=== PATIENT | female | born 1940 | race Caucasian/White ===

== ENCOUNTER → 2016-12-26 | Outpatient (CLI) | payer MEDICARE ==
[2016-12-26 09:26] LABS: ANION GAP 14 (5-19); BLOOD UREA NITROGEN 45 mg/dL (7-20); CALCIUM 9.1 mg/dL (8.4-10.2); CARBON DIOXIDE 23 mmol/L (22-30); CHLORIDE 100 mmol/L (98-107); CREATININE RESULT 2.21 mg/dL (0.52-1.25); GLUCOSE 215 mg/dL (75-110); POTASSIUM 4.6 mmol/L (3.6-5.0); SODIUM 136.6 mmol/L (137-145)
== END ==
LOC: OD 08:34
PROVIDERS: ATTEND Internal Medicine Nephrology
DX: N18.4 Chronic kidney disease, stage 4 (severe) (principal); E87.5 Hyperkalemia; E11.9 Type 2 diabetes mellitus without complications
CPT/HCPCS: 36415; 80048

== ENCOUNTER → 2017-04-10 | Outpatient (CLI) | payer MEDICARE ==
[2017-04-10 09:30] LABS: HEMATOCRIT 37.1 % (36.0-47.0); HEMOGLOBIN 12.3 g/dL (12.0-15.5); HGB HCT DIFFERENCE -0.2; MEAN CORPUSCULAR HEMOGLOBIN 27.7 pg (27.0-33.4); MEAN CORPUSCULAR HGB CONC 33.2 g/dL (32.0-36.0); MEAN CORPUSCULAR VOLUME 83 fl (80-97); RED BLOOD COUNT 4.46 10^6/uL (3.72-5.28); RED CELL DISTRIBUTION WIDTH 13.8 % (11.5-14.0)
[2017-04-10 09:43] LABS: APPEARANCE,URINE CLEAR; BILIRUBIN,URINE NEGATIVE (NEGATIVE); GLUCOSE, URINE NEGATIVE (NEGATIVE); KETONES,URINE NEGATIVE (NEGATIVE); LEUKOCYTE ESTERASE,URINE TRACE (NEGATIVE); NITRITE,URINE NEGATIVE (NEGATIVE); PROTEIN,URINE NEGATIVE (NEGATIVE); URINE SPECIFIC GRAVITY 1.009; UROBILINOGEN,URINE NEGATIVE mg/dL (<2.0)
[2017-04-10 10:04] LABS: ANION GAP 13 (5-19); BLOOD UREA NITROGEN 44 mg/dL (7-20); CALCIUM 9.3 mg/dL (8.4-10.2); CARBON DIOXIDE 19 mmol/L (22-30); CHLORIDE 109 mmol/L (98-107); CREATININE RESULT 1.99 mg/dL (0.52-1.25); GLUCOSE 190 mg/dL (75-110); POTASSIUM 4.5 mmol/L (3.6-5.0); SODIUM 140.9 mmol/L (137-145)
== END ==
LOC: OD 08:06
PROVIDERS: ATTEND Internal Medicine Nephrology
DX: I12.9 Hypertensive chronic kidney disease with stage 1 through stage 4 chronic kidney disease, or unspecified chronic kidney disease (principal); N18.4 Chronic kidney disease, stage 4 (severe); E11.9 Type 2 diabetes mellitus without complications
CPT/HCPCS: 36415; 80048; 81001; 85027

== ENCOUNTER → 2017-05-09 | Outpatient (CLI) | payer MEDICARE ==
--- NOTE | 2017-05-13 19:44 | XCELERA REPORT ---
[address] [address] Transthoracic Echocardiogram Report Name: MEGAN CARVALHO Age: 76 yrs Gender: Female : 1940 Patient Status: Outpatient Patient Location: Study Date: 05/09/2017 02:07 PM Height: 63 in Weight: 253 lb BSA: 2.1 m2 Procedure: A complete two-dimensional transthoracic echocardiogram was performed (2D, M-mode, spectral and color flow Doppler). The study was technically difficult with many images being suboptimal in quality. Reason For Study: HEART FAILURE EDEMA Ordering Physician: OSCAR RONDON Performed By: Megha Lopez Interpretation Summary The study was technically difficult with many images being suboptimal in quality. The left ventricular ejection fraction is normal. There is borderline concentric left ventricular hypertrophy. LV diastolic function could not be adequately assessed. The left ventricle is grossly normal size. Wall motion cannot be accurately commented on, Not all wall segments were well visualized. Regional wall motion abnormalities cannot be excluded due to limited visualization. The right ventricular systolic function is normal. The right atrium is normal. Borderline left atrial enlargement. There is no mitral valve stenosis. There is a trace amount of mitral regurgitation No aortic regurgitation is present. There is no aortic valve stenosis There is a trace or physiologic amount of tricuspid regurgitation Right ventricular systolic pressure is at the upper limits of normal The aortic root is not well visualized. The inferior vena cava was not well visualized There is no pericardial effusion. The study was technically difficult with many images being suboptimal in quality. MMode/2D Measurements \T\ Calculations RVDd: 3.4 cm LVIDd: 4.7 cmFS: 25.5 % Ao root diam: 3.0 cm IVSd: 1.6 cm LVIDs: 3.5 cmEDV(Teich): 101.3 ml LVPWd: 1.2 cmESV(Teich): 50.3 ml Ao root area: 6.9 cm2 EF(Teich): 50.3 % LA dimension: 3.4 cm LVOT diam: 2.0 cm LVOT area: 3.2 cm2 Doppler Measurements \T\ Calculations MV E max nay: MV P1/2t max nay: Ao V2 max: LV V1 max P.4 cm/sec 83.4 cm/sec 108.6 cm/sec 5.4 mmHg MV A max nay: MV P1/2t: 41.2 msec Ao max PG: LV V1 max: 95.8 cm/sec MVA(P1/2t): 5.3 cm2 4.7 mmHg 116.5 cm/sec MV E/A: 0.86 MV dec slope: JOSE(V,D): 3.4 cm2 593.1 cm/sec2 PA V2 max: 83.6 cm/sec PA max P.8 mmHg Left Ventricle The left ventricle is grossly normal size. There is borderline concentric left ventricular hypertrophy. The left ventricular ejection fraction is normal. LV diastolic function could not be adequately assessed. Wall motion cannot be accurately commented on, but no definite regional wall motion abnormalities noted. Not all wall segments were well visualized. Regional wall motion abnormalities cannot be excluded due to limited visualization. Right Ventricle The right ventricle is grossly normal size. The right ventricular systolic function is normal. Atria The right atrium is normal. Borderline left atrial enlargement. Interarterial septum not well visualized and not well dopplered. Cannot comment on ASD/PFO presence. Mitral Valve The mitral valve is grossly normal. There is no mitral valve stenosis. There is a trace amount of mitral regurgitation. Aortic Valve The aortic valve is grossly normal. There is no aortic valve stenosis. No aortic regurgitation is present. Tricuspid Valve The tricuspid valve is not well visualized secondary to technical limitations. There is no tricuspid stenosis. There is a trace or physiologic amount of tricuspid regurgitation. Right ventricular systolic pressure is at the upper limits of normal. Pulmonic Valve The pulmonic valve is not well visualized. Great Vessels The aortic root is not well visualized. The inferior vena cava was not well visualized. Effusions There is no pericardial effusion. : OSCAR RONDON > Shon Carrasco
== END ==
LOC: SP 13:31
PROVIDERS: ATTEND Internal Medicine
DX: I10 Essential (primary) hypertension (principal); I50.9 Heart failure, unspecified; R60.9 Edema, unspecified
CPT/HCPCS: 93306

== ENCOUNTER → 2017-08-16 | Outpatient (CLI) | payer MEDICARE ==
[2017-08-16 11:41] LABS: HEMOGLOBIN 13.2 g/dL (12.0-15.5); HGB HCT DIFFERENCE 0.6; MEAN CORPUSCULAR HEMOGLOBIN 27.7 pg (27.0-33.4); MEAN CORPUSCULAR HGB CONC 33.7 g/dL (32.0-36.0); MEAN CORPUSCULAR VOLUME 82 fl (80-97); RED BLOOD COUNT 4.74 10^6/uL (3.72-5.28); RED CELL DISTRIBUTION WIDTH 13.7 % (11.5-14.0); WHITE BLOOD COUNT 7.9 10^3/uL (4.0-10.5)
[2017-08-16 11:47] LABS: APPEARANCE,URINE SLIGHTLY-CLOUDY; BILIRUBIN,URINE NEGATIVE (NEGATIVE); GLUCOSE, URINE NEGATIVE (NEGATIVE); KETONES,URINE NEGATIVE (NEGATIVE); LEUKOCYTE ESTERASE,URINE MODERATE (NEGATIVE); NITRITE,URINE NEGATIVE (NEGATIVE); PROTEIN,URINE NEGATIVE (NEGATIVE); URINE SPECIFIC GRAVITY 1.008; UROBILINOGEN,URINE NEGATIVE mg/dL (<2.0)
[2017-08-16 12:11] LABS: ANION GAP 13 (5-19); BLOOD UREA NITROGEN 35 mg/dL (7-20); CALCIUM 9.3 mg/dL (8.4-10.2); CARBON DIOXIDE 26 mmol/L (22-30); CHLORIDE 101 mmol/L (98-107); CREATININE RESULT 1.81 mg/dL (0.52-1.25); GLUCOSE 166 mg/dL (75-110); PHOSPHORUS 4.3 mg/dL (2.5-4.5)
== END ==
LOC: OD 09:53
PROVIDERS: ATTEND Physician Assistant Medical
DX: I12.9 Hypertensive chronic kidney disease with stage 1 through stage 4 chronic kidney disease, or unspecified chronic kidney disease (principal); N18.4 Chronic kidney disease, stage 4 (severe); R60.9 Edema, unspecified
CPT/HCPCS: 36415; 80048; 81001; 83970; 84100; 85027

== ENCOUNTER → 2018-12-25 | Outpatient (CLI) | payer MEDICARE ==
[2018-12-25 09:24] LABS: APPEARANCE,URINE SLIGHTLY-CLOUDY; BILIRUBIN,URINE NEGATIVE (NEGATIVE); COLOR,URINE YELLOW; GLUCOSE, URINE NEGATIVE (NEGATIVE); KETONES,URINE NEGATIVE (NEGATIVE); LEUKOCYTE ESTERASE,URINE SMALL (NEGATIVE); NITRITE,URINE NEGATIVE (NEGATIVE); PROTEIN,URINE NEGATIVE (NEGATIVE); URINE SPECIFIC GRAVITY 1.009; UROBILINOGEN,URINE NEGATIVE mg/dL (<2.0)
[2018-12-25 09:29] LABS: HEMATOCRIT 34.5 % (36.0-47.0); HEMOGLOBIN 11.3 g/dL (12.0-15.5); MEAN CORPUSCULAR HEMOGLOBIN 27.9 pg (27.0-33.4); MEAN CORPUSCULAR HGB CONC 32.8 g/dL (32.0-36.0); MEAN CORPUSCULAR VOLUME 85 fl (80-97); PLATELET COUNT 322 10^3/uL (150-450); RED BLOOD COUNT 4.07 10^6/uL (3.72-5.28); RED CELL DISTRIBUTION WIDTH 14.7 % (11.5-14.0); WHITE BLOOD COUNT 6.8 10^3/uL (4.0-10.5)
[2018-12-25 09:48] LABS: ANION GAP 9 (5-19); BLOOD UREA NITROGEN 53 mg/dL (7-20); CALCIUM 9.1 mg/dL (8.4-10.2); CARBON DIOXIDE 20 mmol/L (22-30); CHLORIDE 107 mmol/L (98-107); GLUCOSE 184 mg/dL (75-110); SODIUM 136.2 mmol/L (137-145)
[2018-12-25 09:56] LABS: POTASSIUM 6.1 mmol/L (3.6-5.0)
== END ==
LOC: OD 08:25
PROVIDERS: ATTEND Internal Medicine Nephrology
DX: I12.9 Hypertensive chronic kidney disease with stage 1 through stage 4 chronic kidney disease, or unspecified chronic kidney disease (principal); N18.4 Chronic kidney disease, stage 4 (severe); E87.5 Hyperkalemia
CPT/HCPCS: 36415; 80048; 81001; 85027

== ENCOUNTER → 2019-01-01 | Outpatient (CLI) | payer MEDICARE | LOC: OD 15:09 | PROVIDERS: ATTEND Internal Medicine Nephrology | DX: E87.5 Hyperkalemia (principal) | CPT/HCPCS: 36415; 84132 ==

== ENCOUNTER → 2019-01-19 | Outpatient (CLI) | payer MEDICARE ==
[2019-01-19 10:52] LABS: HEMATOCRIT 36.1 % (36.0-47.0); HEMOGLOBIN 12.3 g/dL (12.0-15.5); MEAN CORPUSCULAR HEMOGLOBIN 28.8 pg (27.0-33.4); MEAN CORPUSCULAR HGB CONC 34.1 g/dL (32.0-36.0); MEAN CORPUSCULAR VOLUME 85 fl (80-97); PLATELET COUNT 411 10^3/uL (150-450); RED BLOOD COUNT 4.27 10^6/uL (3.72-5.28); RED CELL DISTRIBUTION WIDTH 13.7 % (11.5-14.0); WHITE BLOOD COUNT 7.3 10^3/uL (4.0-10.5)
[2019-01-19 11:10] LABS: ANION GAP 12 (5-19); BLOOD UREA NITROGEN 58 mg/dL (7-20); CALCIUM 9.1 mg/dL (8.4-10.2); CARBON DIOXIDE 26 mmol/L (22-30); CHLORIDE 99 mmol/L (98-107); GLUCOSE 107 mg/dL (75-110); PHOSPHORUS 4.7 mg/dL (2.5-4.5); POTASSIUM 5.1 mmol/L (3.6-5.0); SODIUM 137.2 mmol/L (137-145)
== END ==
LOC: OD 10:07
PROVIDERS: ATTEND Internal Medicine Nephrology
DX: I12.9 Hypertensive chronic kidney disease with stage 1 through stage 4 chronic kidney disease, or unspecified chronic kidney disease (principal); N18.4 Chronic kidney disease, stage 4 (severe); E11.22 Type 2 diabetes mellitus with diabetic chronic kidney disease; R60.9 Edema, unspecified
CPT/HCPCS: 36415; 80048; 83970; 84100; 85027

== ENCOUNTER → 2019-03-12 | Outpatient (CLI) | payer MEDICARE ==
[2019-03-12 09:36] LABS: ABSOLUTE BASOPHILS # (AUTO) 0.1 10^3/uL (0.0-0.2); ABSOLUTE EOSINOPHILS # (AUTO) 0.6 10^3/uL (0.0-0.6); ABSOLUTE LYMPHOCYTES (AUTO) 1.9 10^3/uL (0.5-4.7); ABSOLUTE MONOCYTES (AUTO) 0.6 10^3/uL (0.1-1.4); ABSOLUTE NEUT (AUTO) 3.9 10^3/uL (1.7-8.2); BASOPHILS % (AUTO) 1.1 % (0-2); EOSINOPHILS % (AUTO) 8.6 % (0-6); HEMATOCRIT 31.6 % (36.0-47.0); HEMOGLOBIN 10.8 g/dL (12.0-15.5); LYMPHOCYTES % (AUTO) 26.3 % (13-45); MEAN CORPUSCULAR HEMOGLOBIN 28.8 pg (27.0-33.4); MEAN CORPUSCULAR HGB CONC 34.3 g/dL (32.0-36.0); MEAN CORPUSCULAR VOLUME 84 fl (80-97); MONOCYTES % (AUTO) 8.4 % (3-13); PLATELET COUNT 355 10^3/uL (150-450); RED BLOOD COUNT 3.76 10^6/uL (3.72-5.28); RED CELL DISTRIBUTION WIDTH 13.6 % (11.5-14.0); SEGMENTED NEUTROPHILS % (AUTO) 55.6 % (42-78); TOTAL CELLS COUNTED % (AUTO) 100 %; WHITE BLOOD COUNT 7.1 10^3/uL (4.0-10.5)
[2019-03-12 09:57] LABS: ALANINE AMINOTRANSFERASE 28 U/L (9-52); ALBUMIN 3.9 g/dL (3.5-5.0); ALKALINE PHOSPHATASE 176 U/L (38-126); ANION GAP 10 (5-19); ASPARTATE AMINO TRANSFERASE 20 U/L (14-36); BILIRUBIN,DIRECT 0.3 mg/dL (0.0-0.4); BILIRUBIN,TOTAL 0.5 mg/dL (0.2-1.3); BLOOD UREA NITROGEN 50 mg/dL (7-20); CALCIUM 9.2 mg/dL (8.4-10.2); CARBON DIOXIDE 25 mmol/L (22-30); CHLORIDE 106 mmol/L (98-107); CHOLESTEROL 156.88 mg/dL (0-200); GLUCOSE 123 mg/dL (75-110); POTASSIUM 4.6 mmol/L (3.6-5.0); SODIUM 141.4 mmol/L (137-145); TOTAL PROTEIN 7.6 g/dL (6.3-8.2); TRIGLYCERIDES 155 mg/dL (<150)
[2019-03-12 10:08] LABS: DIRECT LDL 77 mg/dL (<100)
== END ==
LOC: OD 08:42
PROVIDERS: ATTEND Internal Medicine
DX: E11.649 Type 2 diabetes mellitus with hypoglycemia without coma (principal); E78.2 Mixed hyperlipidemia; R53.83 Other fatigue
CPT/HCPCS: 36415; 80053; 80061; 84443; 85025

== ENCOUNTER → 2019-03-23 | Outpatient (CLI) | payer MEDICARE ==
[2019-03-23 09:52] LABS: HEMATOCRIT 33.6 % (36.0-47.0); HEMOGLOBIN 11.3 g/dL (12.0-15.5); MEAN CORPUSCULAR HEMOGLOBIN 28.1 pg (27.0-33.4); MEAN CORPUSCULAR HGB CONC 33.5 g/dL (32.0-36.0); MEAN CORPUSCULAR VOLUME 84 fl (80-97); PLATELET COUNT 395 10^3/uL (150-450); RED BLOOD COUNT 4.01 10^6/uL (3.72-5.28); RED CELL DISTRIBUTION WIDTH 13.8 % (11.5-14.0)
[2019-03-23 10:10] LABS: ANION GAP 9 (5-19); BLOOD UREA NITROGEN 49 mg/dL (7-20); CALCIUM 9.2 mg/dL (8.4-10.2); CARBON DIOXIDE 25 mmol/L (22-30); CHLORIDE 108 mmol/L (98-107); GLUCOSE 208 mg/dL (75-110); PHOSPHORUS 5.1 mg/dL (2.5-4.5); POTASSIUM 4.6 mmol/L (3.6-5.0); SODIUM 141.5 mmol/L (137-145)
[2019-03-23 10:30] LABS: APPEARANCE,URINE SLIGHTLY-CLOUDY; BILIRUBIN,URINE NEGATIVE (NEGATIVE); COLOR,URINE YELLOW; GLUCOSE, URINE NEGATIVE (NEGATIVE); KETONES,URINE NEGATIVE (NEGATIVE); LEUKOCYTE ESTERASE,URINE SMALL (NEGATIVE); NITRITE,URINE NEGATIVE (NEGATIVE); PROTEIN,URINE 100 mg/dL (NEGATIVE); URINE SPECIFIC GRAVITY 1.012; UROBILINOGEN,URINE NEGATIVE mg/dL (<2.0)
== END ==
LOC: OD 09:21
PROVIDERS: ATTEND Physician Assistant Medical
DX: E11.22 Type 2 diabetes mellitus with diabetic chronic kidney disease (principal); I12.9 Hypertensive chronic kidney disease with stage 1 through stage 4 chronic kidney disease, or unspecified chronic kidney disease; N18.4 Chronic kidney disease, stage 4 (severe); R60.9 Edema, unspecified; N25.0 Renal osteodystrophy; E87.5 Hyperkalemia
CPT/HCPCS: 36415; 80048; 81001; 83970; 84100; 85027

== ENCOUNTER 2019-05-25 12:01 | Inpatient (IN) | payer MEDICARE ==
[2019-05-25] MEDS ORDERED: METHOCARBAMOL INJ/PF 1000 MG/10 ML SDV IV ONE (13:05)
[2019-05-25] MEDS ORDERED: INSULIN REG, HUMAN 100 UNIT/ML 3 ML VIAL (PYX) IV ONE (13:05)
--- NOTE | 2019-05-25 13:21 | ER Document Report ---
Entered by GABRIELLA HECK SCRIBE 05/25/19 1230 Acting as scribe for:ANDREW TERRY MD ED General - General Stated Complaint: DIFFICULTY BREATHING Time Seen by Provider: 05/25/19 12:08 Primary Care Provider: PIYUSH RONDON PA-C [ALLIED HEALTH PROFESSIONAL] - Follow up as needed Information source: Patient Notes: Patient is a 78 year old female that presents to the emergency department today with complaints of pain that radiates between the left side of the neck and the left shoulder. EMS states the patient reported her pain as an 8/10 on arrival, and after 2 sublingual NTG the patient's pain dropped to a 4/10. Patient mentions that she believes she is dehydrated as she has been vomiting with associated diarrhea for the last x3 days. TRAVEL OUTSIDE OF THE [place] IN LAST 30 DAYS: No - Related Data Allergies/Adverse Reactions: acetaminophen [From Tylenol] Allergy (Verified 10/21/14 08:01) ciprofloxacin [From Cipro] Allergy (Verified 10/21/14 08:01) ciprofloxacin HCl [From Cipro] Allergy (Verified 10/21/14 08:01) Penicillins Allergy (Verified 10/21/14 08:01) Sulfa (Sulfonamide Antibiotics) Allergy (Verified 10/21/14 08:01) Past Medical History - General Information source: Patient - Social History Smoking Status: Former Smoker - Quit 40 years ago Cigarette use (# per day): No Frequency of alcohol use: None Drug Abuse: None Family History: CAD, DM - Past Medical History Cardiac Medical History: Reports: Hx Hypertension Endocrine Medical History: Reports: Hx Diabetes Mellitus Type 1 Past Surgical History: Reports: Hx Appendectomy, Hx Cholecystectomy, Hx Hysterectomy - Immunizations Hx Diphtheria, Pertussis, Tetanus Vaccination: Yes Review of Systems - Review of Systems Constitutional: No symptoms reported EENT: No symptoms reported Cardiovascular: No symptoms reported Respiratory: No symptoms reported Gastrointestinal: See HPI, Diarrhea, Nausea, Vomiting Genitourinary: No symptoms reported Female Genitourinary: No symptoms reported Musculoskeletal: See HPI, Back pain, Neck pain Skin: No symptoms reported Hematologic/Lymphatic: No symptoms reported Neurological/Psychological: No symptoms reported -: Yes All other systems reviewed and negative Physical Exam - Vital signs Vitals: Resp Pulse Ox 22 H 92 05/25/19 12:13 05/25/19 12:13 - Notes Notes: Physical Exam: General: Alert, dry mouth. HEENT: Normocephalic. Atraumatic. PERRL. Extraocular movements intact. Oropharynx clear. Neck: Supple. Left posterior cervical musculture tenderness to palpation. Left lateral tenderness to palpation. Respiratory: No respiratory distress. Clear and equal breath sounds bilaterally. Cardiovascular: Regular rate and rhythm. Chest: Left anterior chest tenderness to palpation. Abdominal: Normal Inspection. Non-tender. No distension. Normal Bowel Sounds. Back: Non-tender. No deformity or step off. Extremities: Moves all four extremities. Upper extremities: Normal inspection. Normal ROM. Lower extremities: Normal inspection. No edema. Normal ROM. Neurological: Normal cognition. AAOx4. Normal speech. Psychological: Normal affect. Normal Mood. Skin: Warm. Dry. Normal color. Course - Vital Signs Vital signs: Temp Pulse Resp BP Pulse Ox 97.4 F 87 27 H 140/59 H 92 05/25/19 12:21 05/25/19 12:21 05/25/19 13:01 05/25/19 13:01 05/25/19 13:01 - Laboratory Result Diagrams: 05/25/19 11:50 05/25/19 11:50 Laboratory results interpreted by me: 05/25/19 05/25/19 05/25/19 11:50 11:50 12:17 WBC 16.6 H Hgb 10.9 L Hct 33.3 L MCH 26.7 L RDW 14.1 H Plt Count 526 H Absolute Neutrophils 12.8 H Sodium 127.1 L Chloride 87 L BUN 54 H Creatinine 5.15 H Est GFR ( Amer) 10 L Est GFR (Non-Af Amer) 8 L Glucose 402 H* POC Glucose 416 H* Direct Bilirubin 0.5 H Alkaline Phosphatase 284 H - Diagnostic Test Radiology reviewed: Image reviewed, Reports reviewed - CXR--Right basilar airspace disease - EKG Interpretation by Me EKG shows normal: Sinus rhythm, [place], Intervals, QRS Complexes, ST-T Waves Rate: Normal - 87 Rhythm: NSR [place]/QRS: RBBB When compared to previous EKG there are: Previous EKG unavailable - Consults Dr. De La Cruz Time consulted: 13:52 Consulted provider: will come to ER Critical Care Note - Critical Care Note Total time excluding time spent on procedures (mins): 35 Discharge - Discharge Clinical Impression: Anterior chest wall pain, Right lower lobe pulmonary infiltrate, Hyperglycemia due to type 1 diabetes mellitus, Hypoxemia Strain of left trapezius muscle Qualifiers: Encounter type: initial encounter Qualified Code(s): S46.812A - Strain of other muscles, fascia and tendons at shoulder and upper arm level, left arm, initial encounter Leukocytosis Qualifiers: Leukocytosis type: unspecified Qualified Code(s): D72.829 - Elevated white blood cell count, unspecified Acute renal failure Qualifiers: Acute renal failure type: unspecified Qualified Code(s): N17.9 - Acute kidney failure, unspecified Condition: Stable Disposition: ADMITTED INPATIENT Admitting Provider: Jacob (Hospitalist) Unit Admitted: IMCU Referrals: PIYUSH RONDON PA-C [ALLIED HEALTH PROFESSIONAL] - Follow up as needed Scribe Attestation: 05/25/19 13:52 I personally performed the services described in the documentation, reviewed and edited the documentation which was dictated to the scribe in my presence, and it accurately records my words and actions. I personally performed the services described in the documentation, reviewed and edited the documentation which was dictated to the scribe in my presence, and it accurately records my words and actions.
[2019-05-25 13:30] LABS: ABSOLUTE BASOPHILS # (AUTO) 0.1 10^3/uL (0.0-0.2); ABSOLUTE LYMPHOCYTES (AUTO) 2.5 10^3/uL (0.5-4.7); ABSOLUTE MONOCYTES (AUTO) 1.2 10^3/uL (0.1-1.4); ABSOLUTE NEUT (AUTO) 12.8 10^3/uL (1.7-8.2); BASOPHILS % (AUTO) 0.3 % (0-2); EOSINOPHILS % (AUTO) 0.2 % (0-6); HEMATOCRIT 33.3 % (36.0-47.0); HEMOGLOBIN 10.9 g/dL (12.0-15.5); LYMPHOCYTES % (AUTO) 15.1 % (13-45); MEAN CORPUSCULAR HEMOGLOBIN 26.7 pg (27.0-33.4); MEAN CORPUSCULAR HGB CONC 32.7 g/dL (32.0-36.0); MEAN CORPUSCULAR VOLUME 82 fl (80-97); MONOCYTES % (AUTO) 7.4 % (3-13); PLATELET COUNT 526 10^3/uL (150-450); RED BLOOD COUNT 4.09 10^6/uL (3.72-5.28); RED CELL DISTRIBUTION WIDTH 14.1 % (11.5-14.0); TOTAL CELLS COUNTED % (AUTO) 100 %; WHITE BLOOD COUNT 16.6 10^3/uL (4.0-10.5)
--- NOTE | 2019-05-25 13:33 | RADIOLOGY REPORT (SQ) ---
EXAM DESCRIPTION: CHEST SINGLE VIEW COMPLETED DATE/TIME: 05/25/2019 1:22 pm REASON FOR STUDY: Left neck and chest pain COMPARISON: None. EXAM PARAMETERS: NUMBER OF VIEWS: One view. TECHNIQUE: Single frontal radiographic view of the chest acquired. RADIATION DOSE: NA LIMITATIONS: None. FINDINGS: LUNGS AND PLEURA: No pneumothorax. Right basilar airspace disease-moderate pleural effusi on. Left lung appears clear. MEDIASTINUM AND HILAR STRUCTURES: No masses. Contour normal. HEART AND VASCULAR STRUCTURES: Heart normal in size. Normal vasculature. BONES: No acute findings. HARDWARE: None in the chest. OTHER: No other significant finding. IMPRESSION: Right basilar airspace disease-moderate pleural effusion. TECHNICAL DOCUMENTATION: JOB ID: [id number] [place]-72 2010 [employer]- All Rights Reserved Reading location - IP/workstation name: [email or web address]
[2019-05-25 13:36] LABS: ALANINE AMINOTRANSFERASE 22 U/L (9-52); ALKALINE PHOSPHATASE 284 U/L (38-126); ANION GAP 18 (5-19); ASPARTATE AMINO TRANSFERASE 23 U/L (14-36); BILIRUBIN,DIRECT 0.5 mg/dL (0.0-0.4); BILIRUBIN,TOTAL 0.8 mg/dL (0.2-1.3); BLOOD UREA NITROGEN 54 mg/dL (7-20); CALCIUM 8.7 mg/dL (8.4-10.2); CARBON DIOXIDE 22 mmol/L (22-30); CHLORIDE 87 mmol/L (98-107); CREATINE KINASE 63 U/L (30-135); POTASSIUM 4.1 mmol/L (3.6-5.0); SODIUM 127.1 mmol/L (137-145); TOTAL PROTEIN 7.7 g/dL (6.3-8.2)
[2019-05-25 13:47] LABS: CREATINE KINASE MB 1.74 ng/mL (<4.55); TROPONIN I 0.023 ng/mL
[2019-05-25 13:48] LABS: GLUCOSE 402 mg/dL (75-110)
[2019-05-25] MEDS ORDERED: ONDANSETRON HCL INJ/PF 4 MG/2 ML SDV IV ONE (13:48)
[2019-05-25] MEDS ORDERED: AZITHROMYCIN INJ 500 MG VIAL IV ONE (13:49)
[2019-05-25] MEDS ORDERED: LEVOFLOXACIN 500 MG/D5W RTU 500 MG/100 ML RTUPB IV ONE (14:24)
--- NOTE | 2019-05-25 14:45 | PDOC H&P ---
History of Present Illness Admission Date/PCP: BRISA RENE MD History of Present Illness: MEGAN CARVALHO is a 78 year old female patient with past medical history of morbid obesity, hypertension, type 2 diabetes mellitus, hyperlipidemia, presents with chief complaint of shortness of breath, right- sided neck jaw and chest pain. Patient reported that she has been in her usual baseline state of health until this morning 7 AM when she started to have the above-mentioned complaints. The chest neck and jaw pain is reproducible. Of note about 6 days ago patient started to have abdominal pain and diarrhea for which she visited urgent care and she was given clarithromycin and Flagyl. And has associated nausea and vomiting. Denies any fever, chills, cough, palpitation or diaphoresis. Have any headache lightheadedness or blurring of vision. Her blood work shows leukocytosis of 16,000, hyponatremia with sodium of 127, hyperglycemia with blood glucose of 416, BUN 54 and creatinine 5.15. Her chest x-ray reported as right basilar airspace disease with moderate pleural effusion. Past Medical History Cardiac Medical History: Reports: Hypertension Endocrine Medical History: Reports: Diabetes Mellitus Type 1 Malignancy Medical History: Denies: Breast Cancer Past Surgical History Past Surgical History: Reports: Appendectomy, Cholecystectomy, Hysterectomy Social History Smoking Status: Former Smoker - Quit 40 years ago Frequency of Alcohol Use: None Hx Recreational Drug Use: No Hx Prescription Drug Abuse: No - Advance Directive Resuscitation Status: Full Code Family History Family History: CAD, DM Parental Family History Reviewed: Yes Children Family History Reviewed: Yes Sibling(s) Family History Reviewed.: Yes Medication/Allergy Home Medications: Insulin NPH Human Isophane [Humulin N] 100 unit SQ ASDIR #1 bottle 10/21/14 Insulin Regular, Human [Humulin R (Reg) Insulin 100 unit/mL] 1 unit SUBCUT .SLD SCALE #10 ml 10/21/14 Sulfamethoxazole/Trimethoprim [Sulfamethoxazole-Tmp Ds Tablet] 1 each PO BID #20 tablet 10/21/14 Tramadol HCl [Ultram 50 mg Tablet] 50 mg PO ASDIR PRN #20 tablet 10/21/14 Allergies/Adverse Reactions: acetaminophen [From Tylenol] Allergy (Verified 10/21/14 08:01) ciprofloxacin [From Cipro] Allergy (Verified 10/21/14 08:01) ciprofloxacin HCl [From Cipro] Allergy (Verified 10/21/14 08:01) Penicillins Allergy (Verified 10/21/14 08:01) Sulfa (Sulfonamide Antibiotics) Allergy (Verified 10/21/14 08:01) Review of Systems Constitutional: ABSENT: chills, fever(s), headache(s), weight gain, weight loss Eyes: ABSENT: visual disturbances Ears: ABSENT: hearing changes Cardiovascular: PRESENT: chest pain Respiratory: PRESENT: cough, dyspnea Gastrointestinal: PRESENT: abdominal pain, nausea, vomiting Genitourinary: ABSENT: dysuria, hematuria Musculoskeletal: ABSENT: joint swelling Integumentary: ABSENT: rash, wounds Neurological: ABSENT: abnormal gait, abnormal speech, confusion, dizziness, focal weakness, syncope Psychiatric: ABSENT: anxiety, depression, homidical ideation, suicidal ideation Endocrine: ABSENT: cold intolerance, heat intolerance, polydipsia, polyuria Hematologic/Lymphatic: ABSENT: easy bleeding, easy bruising Physical Exam Vital Signs: Temp Pulse Resp BP Pulse Ox 97.4 F 87 27 H 146/54 H 94 05/25/19 12:21 05/25/19 12:21 05/25/19 14:01 05/25/19 14:01 05/25/19 14:01 Intake & Output 05/24/19 05/25/19 05/26/19 06:59 06:59 06:59 Weight 111.9 kg General appearance: PRESENT: mild distress Head exam: PRESENT: atraumatic Eye exam: PRESENT: conjunctiva pink Mouth exam: PRESENT: dry mucosa Neck exam: ABSENT: carotid bruit, JVD, lymphadenopathy, thyromegaly Respiratory exam: PRESENT: crackles, decreased breath sounds - Right lung base GI/Abdominal exam: PRESENT: normal bowel sounds, soft. ABSENT: distended, guarding, mass, organolmegaly, rebound, tenderness Results Laboratory Results: 05/25/19 11:50 05/25/19 11:50 05/25/19 05/25/19 11:50 11:50 WBC 16.6 H RBC 4.09 Hgb 10.9 L Hct 33.3 L MCV 82 MCH 26.7 L MCHC 32.7 RDW 14.1 H Plt Count 526 H Seg Neutrophils % 77.0 Lymphocytes % 15.1 Monocytes % 7.4 Eosinophils % 0.2 Basophils % 0.3 Absolute Neutrophils 12.8 H Absolute Lymphocytes 2.5 Absolute Monocytes 1.2 Absolute Eosinophils 0.0 Absolute Basophils 0.1 Sodium 127.1 L Potassium 4.1 Chloride 87 L Carbon Dioxide 22 Anion Gap 18 BUN 54 H Creatinine 5.15 H Est GFR ( Amer) 10 L Est GFR (Non-Af Amer) 8 L Glucose 402 H* Calcium 8.7 Total Bilirubin 0.8 AST 23 ALT 22 Alkaline Phosphatase 284 H Total Protein 7.7 Albumin 4.0 05/25/19 05/25/19 11:50 11:50 Creatine Kinase 63 CK-MB (CK-2) 1.74 Troponin I 0.023 Impressions: Chest X-Ray 05/25/19 12:40 IMPRESSION: Right basilar airspace disease-moderate pleural effusion. Assessment and Plan - Diagnosis (1) Right lung pneumonia Is this a current diagnosis for this admission?: Yes Plan: Patient has been started on Levaquin. CT chest still requested to further delineate the lesion. (2) Hyperglycemia due to type 2 diabetes mellitus Is this a current diagnosis for this admission?: Yes Plan: We will put her on sliding scale. I will revise her diabetic medication and adjust it accordingly. (3) Leukocytosis Is this a current diagnosis for this admission?: Yes Plan: Most probably related to her pneumonia. We will monitor her CBC. (4) Hyponatremia Is this a current diagnosis for this admission?: Yes Plan: Cautiously hydrated. (5) MIRA on stage IV CKD Is this a current diagnosis for this admission?: Yes Plan: Patient probably dehydrated. Gentle hydration. Avoid nephrotoxic agents. 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 (6) Hypertension Qualifiers: Hypertension type: essential hypertension Qualified Code(s): I10 - Essential (primary) hypertension Is this a current diagnosis for this admission?: Yes Plan: Continue her home medication. (7) Morbid obesity with BMI of 45.0-49.9, adult Is this a current diagnosis for this admission?: Yes Plan: Patient encouraged to do lifestyle modification. - Inpatient Certification Medical Necessity: Need Close Monitoring Due to Risk of Patient Decompensation, Need For IV Fluids, Need for IV Antibiotics
[2019-05-25] MEDS ORDERED: TEMAZEPAM 15 MG CAPSULE PO PRN (14:50)
[2019-05-25] MEDS ORDERED: GLUCAGON,HUMAN RECOMB 1 MG INJ IM PRN (14:56)
[2019-05-25] MEDS ORDERED: DEXTROSE 50%-WATER 25 GM/50 ML DISP.SYRIN IV PRN ×2 (14:56)
[2019-05-25] MEDS ORDERED: DEXTROSE 40% GEL 15 GM TUBE PO PRN ×2 (14:56)
--- NOTE | 2019-05-25 15:12 | RADIOLOGY REPORT (SQ) ---
EXAM DESCRIPTION: CT CHEST WITHOUT; CT ABD/PELVIS NO ORAL OR IV COMPLETED DATE/TIME: 05/25/2019 2:42 pm REASON FOR STUDY: Right basilar airspace disease with effusion; abd pain COMPARISON: None. TECHNIQUE: CT scan of the chest performed without intravenous contrast using helical scanning techni que. Images reviewed with lung, soft tissue and bone windows. Reconstructed coronal and sagittal MPR images reviewed. All images stored on PACS. All CT scanners at this facility use dose modulation, iterative reconstruction, and/or weight based d osing when appropriate to reduce radiation dose to as low as reasonably achievable (ALARA). [facility]: Dose Right [facility]: CareDose [facility]: Dose Right [facility]: PanelClaw 4D [facility]: [employer] [place] RADIATION DOSE: CT Rad equipment meets quality standard of care and radiation dose reduction techniq ues were employed. CTDIvol: 18.2 mGy. DLP: 1310 mGy-cm. mGy. LIMITATIONS: None. FINDINGS: AXILLAE: No adenopathy. CHEST WALL: No masses. No subcutaneous air. LUNGS: Mild lower low atelectasis associated with pleural effusions. PLEURA: Moderate right pleural effusion. Small left pleural effusion. Mild lower lobe atelectasis. THYROID: No masses or significant asymmetry. HILAR AND MEDIASTINAL STRUCTURES: No identified masses or abnormal nodes. AORTA AND GREAT VESSELS: No aneurysm. HEART: No pericardial effusion. HARDWARE AND LIFELINES: None. BONES: No significant finding. OTHER: No other significant finding. IMPRESSION: Moderate right pleural effusion. Small left pleural effusion. Mild associated lower lo be atelectasis. COMPARISON: None. TECHNIQUE: CT scan of the abdomen and pelvis performed without intravenous contrast and withoral con trast using helical scanning technique with dynamic intravenous contrast injection. Images reviewed with lung, soft tissue and bone windows. Reconstructed coronal and sagittal MPR images reviewed. Al l images stored on PACS. All CT scanners at this facility use dose modulation, iterative reconstruction, and/or weight based d osing when appropriate to reduce radiation dose to as low as reasonably achievable (ALARA). [facility]: Dose Right [facility]: SureCare [facility]: Dose Right [facility]: Teradose 4D [facility]: [employer] RADIATION DOSE: CT Rad equipment meets quality standard of care and radiation dose reduction techniq ues were employed. CTDIvol: 18.2 mGy. DLP: 1310 mGy-cm.mGy. LIMITATIONS: None. FINDINGS: LIVER: Normal size. No masses. No dilated ducts. SPLEEN: Normal size. No focal lesions. PANCREAS: There is considerable fatty replacement of the pancreas. GALLBLADDER: Surgically absent. ADRENAL GLANDS: No significant masses or asymmetry. RIGHT KIDNEY AND URETER: No solid masses. Assessment limited by lack of IV contrast. No significant c alcification. No hydronephrosis or hydroureter. LEFT KIDNEY AND URETER: Somewhat atrophic. No calcifications. No hydronephrosis. AORTA AND VESSELS: No aneurysm. RETROPERITONEUM: No retroperitoneal adenopathy, hemorrhage or masses. APPENDIX: Surgically absent. LARGE AND SMALL BOWEL: Contrast is present in the colon. No dilated loops of bowel. No obvious abilio l mass. No inflammation. ABDOMINAL WALL: No hernia or masses. PERITONEAL CAVITY: No free air. No free fluid. No peritoneal implants or masses. PELVIS: No mass or free fluid. Normal bladder. BONES: No significant or acute findings. OTHER: No other significant finding. IMPRESSION: There is some degree of renal atrophy. No acute finding in the abdomen or pelvis. TECHNICAL DOCUMENTATION: JOB ID: [id number] Quality ID # [id number]: Final reports with documentation of one or more dose reduction techniques (e.g., Au tomated exposure control, adjustment of the mA and/or kV according to patient size, use of iterative reconstruction technique) 2010 [employer]- All Rights Reserved Reading location - IP/workstation name: [email or web address]
--- NOTE | 2019-05-25 15:12 | RADIOLOGY REPORT (SQ) ---
EXAM DESCRIPTION: CT CHEST WITHOUT; CT ABD/PELVIS NO ORAL OR IV COMPLETED DATE/TIME: 05/25/2019 2:42 pm REASON FOR STUDY: Right basilar airspace disease with effusion; abd pain COMPARISON: None. TECHNIQUE: CT scan of the chest performed without intravenous contrast using helical scanning techni que. Images reviewed with lung, soft tissue and bone windows. Reconstructed coronal and sagittal MPR images reviewed. All images stored on PACS. All CT scanners at this facility use dose modulation, iterative reconstruction, and/or weight based d osing when appropriate to reduce radiation dose to as low as reasonably achievable (ALARA). [facility]: Dose Right [facility]: CareDose [facility]: Dose Right [facility]: Transave 4D [facility]: BioStable RADIATION DOSE: CT Rad equipment meets quality standard of care and radiation dose reduction techniq ues were employed. CTDIvol: 18.2 mGy. DLP: 1310 mGy-cm. mGy. LIMITATIONS: None. FINDINGS: AXILLAE: No adenopathy. CHEST WALL: No masses. No subcutaneous air. LUNGS: Mild lower low atelectasis associated with pleural effusions. PLEURA: Moderate right pleural effusion. Small left pleural effusion. Mild lower lobe atelectasis. THYROID: No masses or significant asymmetry. HILAR AND MEDIASTINAL STRUCTURES: No identified masses or abnormal nodes. AORTA AND GREAT VESSELS: No aneurysm. HEART: No pericardial effusion. HARDWARE AND LIFELINES: None. BONES: No significant finding. OTHER: No other significant finding. IMPRESSION: Moderate right pleural effusion. Small left pleural effusion. Mild associated lower lo be atelectasis. COMPARISON: None. TECHNIQUE: CT scan of the abdomen and pelvis performed without intravenous contrast and withoral con trast using helical scanning technique with dynamic intravenous contrast injection. Images reviewed with lung, soft tissue and bone windows. Reconstructed coronal and sagittal MPR images reviewed. Al l images stored on PACS. All CT scanners at this facility use dose modulation, iterative reconstruction, and/or weight based d osing when appropriate to reduce radiation dose to as low as reasonably achievable (ALARA). [facility]: Dose Right [facility]: SureCare [facility]: Dose Right [facility]: Teradose 4D [facility]: [employer] RADIATION DOSE: CT Rad equipment meets quality standard of care and radiation dose reduction techniq ues were employed. CTDIvol: 18.2 mGy. DLP: 1310 mGy-cm.mGy. LIMITATIONS: None. FINDINGS: LIVER: Normal size. No masses. No dilated ducts. SPLEEN: Normal size. No focal lesions. PANCREAS: There is considerable fatty replacement of the pancreas. GALLBLADDER: Surgically absent. ADRENAL GLANDS: No significant masses or asymmetry. RIGHT KIDNEY AND URETER: No solid masses. Assessment limited by lack of IV contrast. No significant c alcification. No hydronephrosis or hydroureter. LEFT KIDNEY AND URETER: Somewhat atrophic. No calcifications. No hydronephrosis. AORTA AND VESSELS: No aneurysm. RETROPERITONEUM: No retroperitoneal adenopathy, hemorrhage or masses. APPENDIX: Surgically absent. LARGE AND SMALL BOWEL: Contrast is present in the colon. No dilated loops of bowel. No obvious abilio l mass. No inflammation. ABDOMINAL WALL: No hernia or masses. PERITONEAL CAVITY: No free air. No free fluid. No peritoneal implants or masses. PELVIS: No mass or free fluid. Normal bladder. BONES: No significant or acute findings. OTHER: No other significant finding. IMPRESSION: There is some degree of renal atrophy. No acute finding in the abdomen or pelvis. TECHNICAL DOCUMENTATION: JOB ID: [id number] Quality ID # [id number]: Final reports with documentation of one or more dose reduction techniques (e.g., Au tomated exposure control, adjustment of the mA and/or kV according to patient size, use of iterative reconstruction technique) 2010 [employer]- All Rights Reserved Reading location - IP/workstation name: [email or web address]
[2019-05-25] MEDS: INSULIN LISPRO 100 UNIT/ML 3 ML VIAL SUBCUT SCH ×2 (16:28→21:25)
[2019-05-25] MEDS: NORMAL SALINE 1000 ML 1,000 ML IV PRN (17:33)
[2019-05-25] MEDS: DOCUSATE SODIUM 100 MG/10 ML UDC PO SCH (17:40)
[2019-05-25] MEDS: ONDANSETRON HCL INJ/PF 4 MG/2 ML SDV IV PRN (18:48)
[2019-05-25 19:55] LABS: CREATINE KINASE MB 1.78 ng/mL (<4.55); TROPONIN I 0.031 ng/mL
[2019-05-25] MEDS: LEVALBUTEROL HCL NEB 0.63 MG/3 ML AMPUL NEB PRN (20:21)
[2019-05-25 20:38] LABS: ARTERIAL BLOOD BASE EXCESS -1.4 mmol/L; ARTERIAL BLOOD H2CO3 1.07 mmol/L (1.05-1.35); ARTERIAL BLOOD HCO3 22.6 mmol/L (20-24); ARTERIAL BLOOD PCO2 35.6 mmHg (35-45); ARTERIAL BLOOD PH 7.42 (7.35-7.45); ARTERIAL BLOOD TOTAL CO2 23.7 mmol/L (21-25)
[2019-05-25 20:39] LABS: ARTERIAL BLOOD FIO2 ROOM AIR
[2019-05-25] MEDS: FAMOTIDINE 20 MG TABLET PO SCH (21:26)
[2019-05-25] MEDS: HEPARIN SOD (PORCINE) 5,000 UNIT/ML 1 ML SYRINGE SUBCUT SCH (21:26)
[2019-05-25] MEDS ORDERED: FAMOTIDINE 20 MG TABLET PO SCH (22:00)
--- NOTE | 2019-05-25 22:57 | EKG REPORT ---
SEVERITY:- ABNORMAL ECG - SINUS RHYTHM RIGHT BUNDLE BRANCH BLOCK : Confirmed by: Shon Carrasco 25-May-2019 22:56:56
[2019-05-26 01:50] LABS: CREATINE KINASE MB 1.89 ng/mL (<4.55); TROPONIN I 0.026 ng/mL
[2019-05-26] MEDS: NORMAL SALINE 1000 ML 1,000 ML IV PRN (02:14)
[2019-05-26] MEDS: ONDANSETRON HCL INJ/PF 4 MG/2 ML SDV IV PRN ×3 (04:03→22:01)
[2019-05-26] MEDS ORDERED: LORAZEPAM 0.5 MG TABLET PO ONE (05:00)
[2019-05-26] MEDS: HEPARIN SOD (PORCINE) 5,000 UNIT/ML 1 ML SYRINGE SUBCUT SCH ×3 (05:07→21:39)
[2019-05-26] MEDS: LEVALBUTEROL HCL NEB 0.63 MG/3 ML AMPUL NEB PRN ×2 (05:53→21:07)
[2019-05-26 06:27] LABS: ARTERIAL BLOOD BASE EXCESS -5.3 mmol/L; ARTERIAL BLOOD H2CO3 1.14 mmol/L (1.05-1.35); ARTERIAL BLOOD HCO3 19.9 mmol/L (20-24); ARTERIAL BLOOD O2 SATURATION 96.1 % (94-98); ARTERIAL BLOOD PH 7.34 (7.35-7.45); ARTERIAL BLOOD PO2 86.5 mmHg (80-100); ARTERIAL BLOOD TOTAL CO2 21.1 mmol/L (21-25)
[2019-05-26 06:29] LABS: ARTERIAL BLOOD FIO2 4.5 L
[2019-05-26] MEDS ORDERED: FUROSEMIDE INJ/PF 40 MG/4 ML SDV IV ONE (08:00)
--- NOTE | 2019-05-26 08:38 | RADIOLOGY REPORT (SQ) ---
EXAM DESCRIPTION: CHEST SINGLE VIEW COMPLETED DATE/TIME: 05/26/2019 8:17 am REASON FOR STUDY: requiring more oxygen, heart failure? COMPARISON: CT chest 05/25/2019 AP chest 05/25/2019 EXAM PARAMETERS: NUMBER OF VIEWS: One view. TECHNIQUE: Single frontal radiographic view of the chest acquired. RADIATION DOSE: NA LIMITATIONS: None. FINDINGS: LUNGS AND PLEURA: Increased opacification over the right lower chest from further right lo wer lobe volume loss and consolidation. Stable small right pleural effusion. Persistent pulmonary vascular congestion is present. No gross alveolar edema. No left pleural effusion. No left lung consolidation. MEDIASTINUM AND HILAR STRUCTURES: No masses. Contour normal. HEART AND VASCULAR STRUCTURES: Stable mild cardiomegaly BONES: No acute findings. HARDWARE: None in the chest. OTHER: No other significant finding. IMPRESSION: Further partial collapse/ consolidation right lower lobe Persistent small right pleural effusion TECHNICAL DOCUMENTATION: JOB ID: [id number] [employer]- All Rights Reserved Reading location - IP/workstation name: [email or web address]
[2019-05-26 08:48] LABS: HEMATOCRIT 31.4 % (36.0-47.0); HEMOGLOBIN 10.4 g/dL (12.0-15.5); MEAN CORPUSCULAR HEMOGLOBIN 27.2 pg (27.0-33.4); MEAN CORPUSCULAR VOLUME 83 fl (80-97); RED BLOOD COUNT 3.81 10^6/uL (3.72-5.28); RED CELL DISTRIBUTION WIDTH 14.3 % (11.5-14.0); WHITE BLOOD COUNT 14.4 10^3/uL (4.0-10.5)
[2019-05-26] MEDS: INSULIN LISPRO 100 UNIT/ML 3 ML VIAL SUBCUT SCH ×4 (08:51→21:38)
[2019-05-26 09:15] LABS: ANION GAP 18 (5-19); BLOOD UREA NITROGEN 57 mg/dL (7-20); CARBON DIOXIDE 19 mmol/L (22-30); CHLORIDE 89 mmol/L (98-107); CREATINE KINASE 60 U/L (30-135); GLUCOSE 375 mg/dL (75-110); POTASSIUM 4.6 mmol/L (3.6-5.0); SODIUM 126.1 mmol/L (137-145)
[2019-05-26 09:24] LABS: CREATINE KINASE MB 2.3 ng/mL (<4.55); TROPONIN I 0.026 ng/mL
[2019-05-26 09:29] LABS: ABSOLUTE LYMPHOCYTES# (MANUAL) 1.2 10^3/uL (0.5-4.7); ABSOLUTE MONOCYTES # (MANUAL) 0.3 10^3/uL (0.1-1.4); BASOPHILS % (MANUAL) 0 % (0-2); EOSINOPHILS % (MANUAL) 0 % (0-6); LYMPHOCYTES % (MANUAL) 8 % (13-45); MONOCYTES % (MANUAL) 2 % (3-13); SEGMENTED NEUTROPHILS % (MAN) 90 % (42-78); TOTAL CELLS COUNTED 100
[2019-05-26 09:30] LABS: ANISOCYTOSIS SLIGHT; PLATELET CLUMPS PRESENT; POLYCHROMASIA 1+
[2019-05-26 09:31] LABS: PLATELET COMMENT ADEQUATE; PLATELET COUNT 420 10^3/uL (150-450)
[2019-05-26] MEDS ORDERED: (PENDING PHARMACY ID) (Nifedipine [Nifedipine Er] 30 MG) PO SCH (10:00)
[2019-05-26] MEDS: NIFEDIPINE 30 MG TAB.ER.24 PO SCH ×2 (10:00→21:38)
[2019-05-26] MEDS: DOCUSATE SODIUM 100 MG/10 ML UDC PO SCH ×2 (10:00→17:28)
--- NOTE | 2019-05-26 10:53 | PDOC PROGRESS REPORT ---
Subjective Progress Note for:: 05/26/19 Subjective:: This is a 78 year old female patient with past medical history of morbid obesity, hypertension, type 2 diabetes mellitus, hyperlipidemia, presents with chief complaint of shortness of breath, right-sided neck jaw and chest pain. Patient reported that she has been in her usual baseline state of health until this morning 7 AM when she started to have the above-mentioned complaints. The chest neck and jaw pain is reproducible. Of note about 6 days ago patient started to have abdominal pain and diarrhea for which she visited urgent care and she was given clarithromycin and Flagyl. And has associated nausea and vomiting. Denies any fever, chills, cough, palpitation or diaphoresis. Have any headache lightheadedness or blurring of vision. Her blood work shows leukocytosis of 16,000, hyponatremia with sodium of 127, hyperglycemia with blood glucose of 416, BUN 54 and creatinine 5.15. Her chest x-ray reported as right basilar airspace disease with moderate pleural effusion. 05/26/2019: This morning patient seen and examined while she is propped up in bed. She is awake alert oriented. She reports mild improvement in her breathing. She has bilateral coarse crepitation on auscultation. She has also bilateral pitting edema. I hold the IV fluid because patient sounds wet. Her last echo was 2 years ago so we will request an echo to evaluate her left ventricular function. Reason For Visit: RIGHT LUNG PNEUMONIA,MIRA ON CKD Physical Exam Vital Signs: Temp Pulse Resp BP Pulse Ox 97.8 F 87 20 133/46 H 92 05/26/19 09:35 05/26/19 09:35 05/26/19 09:35 05/26/19 09:35 05/26/19 09:35 Intake & Output 05/25/19 05/26/19 05/27/19 06:59 06:59 06:59 Intake Total 1570 Output Total 0 Balance 1570 Weight 115.1 kg General appearance: PRESENT: mild distress Eye exam: PRESENT: conjunctiva pink Neck exam: ABSENT: carotid bruit, JVD, lymphadenopathy, thyromegaly Respiratory exam: PRESENT: clear to auscultation ofe. ABSENT: rales, rhonchi, wheezes Cardiovascular exam: PRESENT: RRR. ABSENT: diastolic murmur, rubs, systolic murmur GI/Abdominal exam: PRESENT: normal bowel sounds, soft. ABSENT: distended, guarding, mass, organolmegaly, rebound, tenderness Neurological exam: PRESENT: alert, awake, oriented to person, oriented to place, oriented to time, oriented to situation Results Laboratory Results: 05/26/19 08:32 05/26/19 08:32 05/25/19 05/25/19 05/25/19 11:50 11:50 20:19 WBC 16.6 H RBC 4.09 Hgb 10.9 L Hct 33.3 L MCV 82 MCH 26.7 L MCHC 32.7 RDW 14.1 H Plt Count 526 H Seg Neutrophils % 77.0 Lymphocytes % 15.1 Monocytes % 7.4 Eosinophils % 0.2 Basophils % 0.3 Absolute Neutrophils 12.8 H Absolute Lymphocytes 2.5 Absolute Monocytes 1.2 Absolute Eosinophils 0.0 Absolute Basophils 0.1 Carbonic Acid 1.07 HCO3/H2CO3 Ratio 21:1 ABG pH 7.42 ABG pCO2 35.6 ABG pO2 54.0 L ABG HCO3 22.6 ABG O2 Saturation 89.0 L ABG Base Excess -1.4 FiO2 ROOM AIR Sodium 127.1 L Potassium 4.1 Chloride 87 L Carbon Dioxide 22 Anion Gap 18 BUN 54 H Creatinine 5.15 H Est GFR ( Amer) 10 L Est GFR (Non-Af Amer) 8 L Glucose 402 H* Calcium 8.7 Magnesium Total Bilirubin 0.8 AST 23 ALT 22 Alkaline Phosphatase 284 H Total Protein 7.7 Albumin 4.0 TSH 05/26/19 05/26/19 05/26/19 06:05 08:32 08:32 WBC 14.4 H RBC 3.81 Hgb 10.4 L Hct 31.4 L MCV 83 MCH 27.2 MCHC 33.0 RDW 14.3 H Plt Count 420 Seg Neutrophils % Not Reportable Lymphocytes % Not Reportable Monocytes % Not Reportable Eosinophils % Not Reportable Basophils % Not Reportable Absolute Neutrophils Not Reportable Absolute Lymphocytes Not Reportable Absolute Monocytes Not Reportable Absolute Eosinophils Not Reportable Absolute Basophils Not Reportable Carbonic Acid 1.14 HCO3/H2CO3 Ratio 17:1 ABG pH 7.34 L ABG pCO2 38.0 ABG pO2 86.5 ABG HCO3 19.9 L ABG O2 Saturation 96.1 ABG Base Excess -5.3 FiO2 4.5 L Sodium 126.1 L Potassium 4.6 Chloride 89 L Carbon Dioxide 19 L Anion Gap 18 BUN 57 H Creatinine 5.80 H Est GFR ( Amer) 9 L Est GFR (Non-Af Amer) 7 L Glucose 375 H Calcium 8.0 L Magnesium Total Bilirubin AST ALT Alkaline Phosphatase Total Protein Albumin TSH 05/26/19 05/26/19 08:32 08:32 WBC RBC Hgb Hct MCV MCH MCHC RDW Plt Count Seg Neutrophils % Lymphocytes % Monocytes % Eosinophils % Basophils % Absolute Neutrophils Absolute Lymphocytes Absolute Monocytes Absolute Eosinophils Absolute Basophils Carbonic Acid HCO3/H2CO3 Ratio ABG pH ABG pCO2 ABG pO2 ABG HCO3 ABG O2 Saturation ABG Base Excess FiO2 Sodium Potassium Chloride Carbon Dioxide Anion Gap BUN Creatinine Est GFR ( Amer) Est GFR (Non-Af Amer) Glucose Calcium Magnesium 1.7 Total Bilirubin AST ALT Alkaline Phosphatase Total Protein Albumin TSH 2.11 05/25/19 05/25/19 05/25/19 11:50 11:50 19:08 Creatine Kinase 63 CK-MB (CK-2) 1.74 1.78 Troponin I 0.023 0.031 05/25/19 05/26/19 05/26/19 19:08 01:14 01:14 Creatine Kinase 59 52 CK-MB (CK-2) 1.89 Troponin I 0.026 05/26/19 05/26/19 08:32 08:32 Creatine Kinase 60 CK-MB (CK-2) 2.30 Troponin I 0.026 Impressions: Chest CT 05/25/19 14:08 IMPRESSION: Moderate right pleural effusion. Small left pleural effusion. Mild associated lower lobe atelectasis. IMPRESSION: There is some degree of renal atrophy. No acute finding in the abdomen or pelvis. Abdomen/Pelvis CT 05/25/19 14:22 IMPRESSION: Moderate right pleural effusion. Small left pleural effusion. Mild associated lower lobe atelectasis. IMPRESSION: There is some degree of renal atrophy. No acute finding in the abdomen or pelvis. Chest X-Ray 05/26/19 00:00 IMPRESSION: Further partial collapse/ consolidation right lower lobe Persistent small right pleural effusion Assessment and Plan - Diagnosis (1) Right lung pneumonia Is this a current diagnosis for this admission?: Yes Plan: Patient has been started on Levaquin. CT chest still requested to further delineate the lesion. (2) Hyperglycemia due to type 2 diabetes mellitus Is this a current diagnosis for this admission?: Yes Plan: We will put her on sliding scale. I will revise her diabetic medication and adjust it accordingly. (3) Leukocytosis Is this a current diagnosis for this admission?: Yes Plan: Most probably related to her pneumonia. We will monitor her CBC. (4) Hyponatremia Is this a current diagnosis for this admission?: Yes Plan: Cautiously hydrated. (5) MIRA on stage IV CKD Is this a current diagnosis for this admission?: Yes Plan: Patient probably dehydrated. Gentle hydration. Avoid nephrotoxic agents. Patient seen and evaluated by Dr. Montalvo. (6) Hypertension Qualifiers: Hypertension type: essential hypertension Qualified Code(s): I10 - Essential (primary) hypertension Is this a current diagnosis for this admission?: Yes Plan: Continue her home medication. (7) Morbid obesity with BMI of 45.0-49.9, adult Is this a current diagnosis for this admission?: Yes Plan: Patient encouraged to do lifestyle modification.
[2019-05-26 13:28] LABS: ALANINE AMINOTRANSFERASE 14 U/L (9-52); ALBUMIN 3.5 g/dL (3.5-5.0); ALKALINE PHOSPHATASE 187 U/L (38-126); ANION GAP 15 (5-19); ASPARTATE AMINO TRANSFERASE 15 U/L (14-36); BILIRUBIN,DIRECT 0.4 mg/dL (0.0-0.4); BILIRUBIN,TOTAL 0.5 mg/dL (0.2-1.3); BLOOD UREA NITROGEN 57 mg/dL (7-20); CALCIUM 8.2 mg/dL (8.4-10.2); CARBON DIOXIDE 21 mmol/L (22-30); CHLORIDE 90 mmol/L (98-107); GLUCOSE 295 mg/dL (75-110); POTASSIUM 4.5 mmol/L (3.6-5.0); SODIUM 125.7 mmol/L (137-145); TOTAL PROTEIN 6.8 g/dL (6.3-8.2)
[2019-05-26] MEDS ORDERED: FUROSEMIDE 20 MG TABLET PO SCH (14:00)
--- NOTE | 2019-05-26 14:52 | PDOC CONSULTATION ---
Consultation Consult Date: 05/26/19 Provider Consulted: Chio MOORE History of Present Illness Admission Date/PCP: 05/25/19 14:29 BRISA RNEE MD History of Present Illness: MEGAN CARVALHO is a 78 year old patient with past medical history of CKD stage IV with a base creatinine of around 2.5 in the background of hypertension, type 2 diabetes mellitus, hyperlipidemia, presents with chief complaint of shortness of breath, right-sided neck jaw and chest pain. She says she has been having a cough with minimal expectoration for the last couple of weeks. Has also noticed some shaking chills and also was found to be febrile in the ER. Approximately a week ago, patient started to have abdominal pain and diarrhea f or which she visited urgent care and she was given clarithromycin and Flagyl. And has associated nausea and vomiting. Her blood work shows leukocytosis of 16,000, hyponatremia with sodium of 127, hyperglycemia with blood glucose of 416, BUN 54 and creatinine 5.15. Her chest x-ray reported as right basilar airspace disease with moderate pleural effusion. Currently when she is seen she is sitting in bed in no distress. She has no appetite. Currently no nausea or vomiting. No complaints of any chest pains or shortness of breath while she is resting. Labs and medications were reviewed with the patient. Past Medical History Cardiac Medical History: Reports: Hypertension-primary Endocrine Medical History: Reports: Diabetes Mellitus Type 1 Renal/ Medical History: Reports: Chronic Kidney Disease Stage IV Malignancy Medical History: Denies: Breast Cancer Past Surgical History Past Surgical History: Reports: Appendectomy, Cholecystectomy, Hysterectomy Social History Smoking Status: Former Smoker Last Time Smoked: 1979 Frequency of Alcohol Use: None Hx Recreational Drug Use: No Drugs: None Hx Prescription Drug Abuse: No - Advance Directive Resuscitation Status: Full Code Family History Parental Family History Reviewed: Yes - Negative for ESRD. Children Family History Reviewed: No Sibling(s) Family History Reviewed.: No Medication/Allergy Home Medications: Calcitriol [Rocaltrol 0.25 mcg Capsule] 0.25 mcg PO MOWEFR@1000 05/25/19 Furosemide [Lasix 20 mg Tablet] 20 mg PO DAILY@1400 05/25/19 Insulin Lispro Protamin/Lispro [Humalog Mix 75-25 100 unit/mL] 10 units SQ ACSUPPER 05/25/19 Insulin Lispro Protamin/Lispro [Humalog Mix 75-25 100 unit/mL] 30 unit SQ [id number] 05/25/19 Lorazepam [Ativan 0.5 mg Tablet] 0.5 mg PO HSP PRN 05/25/19 Mupirocin [Bactroban 2% Ointment 22 gm] 1 applic TOP BID 05/25/19 Nifedipine [Nifedipine ER] 30 mg PO Q12 05/25/19 Omeprazole 20 mg PO BID 05/25/19 Ondansetron [Ondansetron Odt] 8 mg PO Q12HP PRN 05/25/19 Triamcinolone Acetonide [Aristocort 0.1% Cream] 1 applic TOP BID 05/25/19 Allergies/Adverse Reactions: acetaminophen [From Tylenol] Allergy (Verified 10/21/14 08:01) Penicillins Allergy (Verified 10/21/14 08:01) Sulfa (Sulfonamide Antibiotics) Allergy (Verified 10/21/14 08:01) Review of Systems Constitutional: PRESENT: anorexia, chills, fatigue, fever(s), weakness. ABSENT: headache(s), night sweats Nose, Mouth, and Throat: ABSENT: mouth pain, sore throat Cardiovascular: PRESENT: dyspnea on exertion, edema, orthropnea, palpitations. ABSENT: chest pain Respiratory: PRESENT: cough, dyspnea, sputum. ABSENT: hemoptysis Gastrointestinal: PRESENT: nausea. ABSENT: abdominal pain, coffee ground emesis, constipation, diarrhea, dysphagia, hematemesis, hematochezia, vomiting Genitourinary: ABSENT: difficulty urinating, dysuria, hematuria Musculoskeletal: ABSENT: deformity Integumentary: ABSENT: diaphoresis, lesions, pruritus, rash Neurological: ABSENT: abnormal movements, abnormal speech, confusion, convulsions, focal weakness, frequent falls, lack of coordination Psychiatric: PRESENT: anxiety. ABSENT: hallucinations Endocrine: ABSENT: heat intolerance, polydipsia Hematologic/Lymphatic: ABSENT: easy bleeding, easy bruising, lymphadenopathy Physical Exam Vital Signs: Temp Pulse Resp BP Pulse Ox 97.8 F 80 22 H 133/46 H 91 L 05/26/19 09:35 05/26/19 12:20 05/26/19 12:20 05/26/19 09:35 05/26/19 12:20 Intake & Output 05/25/19 05/26/19 05/27/19 06:59 06:59 06:59 Intake Total 1570 721 Output Total 0 Balance 1570 721 Weight 115.1 kg General appearance: PRESENT: no acute distress Eye exam: PRESENT: EOMI, PERRLA. ABSENT: nystagmus Mouth exam: PRESENT: moist. ABSENT: neck supple Neck exam: ABSENT: lymphadenopathy, meningismus, tenderness, thyromegaly, tracheal deviation Respiratory exam: PRESENT: clear to auscultation ofe. ABSENT: crackles Cardiovascular exam: PRESENT: +S1, +S2 GI/Abdominal exam: PRESENT: normal bowel sounds, soft. ABSENT: organomegaly, tenderness Extremities exam: PRESENT: +1 edema Neurological exam: PRESENT: alert, awake, oriented to person, oriented to place, oriented to time Psychiatric exam: PRESENT: appropriate affect Skin exam: PRESENT: erythema - Mild over her right leg.. ABSENT: cyanosis, mottled, pallor Results Laboratory Results: 05/26/19 08:32 05/26/19 12:56 05/25/19 05/26/19 05/26/19 20:19 06:05 08:32 WBC RBC Hgb Hct MCV MCH MCHC RDW Plt Count Seg Neutrophils % Lymphocytes % Monocytes % Eosinophils % Basophils % Absolute Neutrophils Absolute Lymphocytes Absolute Monocytes Absolute Eosinophils Absolute Basophils Carbonic Acid 1.07 1.14 HCO3/H2CO3 Ratio 21:1 17:1 ABG pH 7.42 7.34 L ABG pCO2 35.6 38.0 ABG pO2 54.0 L 86.5 ABG HCO3 22.6 19.9 L ABG O2 Saturation 89.0 L 96.1 ABG Base Excess -1.4 -5.3 FiO2 ROOM AIR 4.5 L Sodium 126.1 L Potassium 4.6 Chloride 89 L Carbon Dioxide 19 L Anion Gap 18 BUN 57 H Creatinine 5.80 H Est GFR ( Amer) 9 L Est GFR (Non-Af Amer) 7 L Glucose 375 H Calcium 8.0 L Magnesium Total Bilirubin AST ALT Alkaline Phosphatase Total Protein Albumin TSH 05/26/19 05/26/19 05/26/19 08:32 08:32 08:32 WBC 14.4 H RBC 3.81 Hgb 10.4 L Hct 31.4 L MCV 83 MCH 27.2 MCHC 33.0 RDW 14.3 H Plt Count 420 Seg Neutrophils % Not Reportable Lymphocytes % Not Reportable Monocytes % Not Reportable Eosinophils % Not Reportable Basophils % Not Reportable Absolute Neutrophils Not Reportable Absolute Lymphocytes Not Reportable Absolute Monocytes Not Reportable Absolute Eosinophils Not Reportable Absolute Basophils Not Reportable Carbonic Acid HCO3/H2CO3 Ratio ABG pH ABG pCO2 ABG pO2 ABG HCO3 ABG O2 Saturation ABG Base Excess FiO2 Sodium Potassium Chloride Carbon Dioxide Anion Gap BUN Creatinine Est GFR ( Amer) Est GFR (Non-Af Amer) Glucose Calcium Magnesium 1.7 Total Bilirubin AST ALT Alkaline Phosphatase Total Protein Albumin TSH 2.11 05/26/19 12:56 WBC RBC Hgb Hct MCV MCH MCHC RDW Plt Count Seg Neutrophils % Lymphocytes % Monocytes % Eosinophils % Basophils % Absolute Neutrophils Absolute Lymphocytes Absolute Monocytes Absolute Eosinophils Absolute Basophils Carbonic Acid HCO3/H2CO3 Ratio ABG pH ABG pCO2 ABG pO2 ABG HCO3 ABG O2 Saturation ABG Base Excess FiO2 Sodium 125.7 L Potassium 4.5 Chloride 90 L Carbon Dioxide 21 L Anion Gap 15 BUN 57 H Creatinine 6.14 H Est GFR ( Amer) 8 L Est GFR (Non-Af Amer) 7 L Glucose 295 H Calcium 8.2 L Magnesium Total Bilirubin 0.5 AST 15 ALT 14 Alkaline Phosphatase 187 H Total Protein 6.8 Albumin 3.5 TSH 05/25/19 05/25/19 05/25/19 11:50 11:50 19:08 Creatine Kinase 63 CK-MB (CK-2) 1.74 1.78 Troponin I 0.023 0.031 05/25/19 05/26/19 05/26/19 19:08 01:14 01:14 Creatine Kinase 59 52 CK-MB (CK-2) 1.89 Troponin I 0.026 05/26/19 05/26/19 08:32 08:32 Creatine Kinase 60 CK-MB (CK-2) 2.30 Troponin I 0.026 Impressions: Chest CT 05/25/19 14:08 IMPRESSION: Moderate right pleural effusion. Small left pleural effusion. Mild associated lower lobe atelectasis. IMPRESSION: There is some degree of renal atrophy. No acute finding in the abdomen or pelvis. Abdomen/Pelvis CT 05/25/19 14:22 IMPRESSION: Moderate right pleural effusion. Small left pleural effusion. Mild associated lower lobe atelectasis. IMPRESSION: There is some degree of renal atrophy. No acute finding in the abdomen or pelvis. Chest X-Ray 06/25/19 00:00 IMPRESSION: Further partial collapse/ consolidation right lower lobe Persistent small right pleural effusion Assessment & Plan - Diagnosis (1) MIRA on stage IV CKD Is this a current diagnosis for this admission?: Yes Plan: Patient is got MIRA presently nonoliguric and on a baseline creatinine of 2.5. ATN from pneumonia and sepsis. She has no obstructive features on her Non contrasted CT abdomen. CT shows she has some renal atrophy bilaterally. Mild fluid overload in the face of right pneumonia. We will stop IV fluids and give her a small dose of IV Lasix and monitor her labs. No indications for renal replacements currently. Will monitor on a daily basis. (2) Anterior chest wall pain Plan: As per hospitalist. (3) Hyperglycemia due to type 2 diabetes mellitus Is this a current diagnosis for this admission?: Yes Plan: Discuss about tighter blood sugar control for obvious reasons. (4) Hypertension Qualifiers: Hypertension type: essential hypertension Qualified Code(s): I10 - Essential (primary) hypertension Is this a current diagnosis for this admission?: Yes Plan: Controlled. Monitor. (5) Hyponatremia Is this a current diagnosis for this admission?: Yes Plan: Monitor after response to IV Lasix. Labs are being ordered.Put on fluid restriction p.o. (6) Right lung pneumonia Is this a current diagnosis for this admission?: Yes Plan: Begun on IV antibiotics. Patient is septic. (7) Renal osteodystrophy Plan: Continue calcitriol.
[2019-05-26 18:35] LABS: APPEARANCE,URINE CLOUDY; BILIRUBIN,URINE SMALL (NEGATIVE); COLOR,URINE AMBER; GLUCOSE, URINE NEGATIVE (NEGATIVE); KETONES,URINE NEGATIVE (NEGATIVE); LEUKOCYTE ESTERASE,URINE NEGATIVE (NEGATIVE); NITRITE,URINE NEGATIVE (NEGATIVE); PROTEIN,URINE 30 mg/dL (NEGATIVE); URINE SPECIFIC GRAVITY 1.018; UROBILINOGEN,URINE NEGATIVE mg/dL (<2.0)
[2019-05-26] MEDS: FAMOTIDINE 20 MG TABLET PO SCH (21:38)
[2019-05-26] MEDS: LORAZEPAM 0.5 MG TABLET PO PRN (21:41)
[2019-05-26 23:39] LABS: ALANINE AMINOTRANSFERASE 19 U/L (9-52); ALBUMIN 3.4 g/dL (3.5-5.0); ALKALINE PHOSPHATASE 194 U/L (38-126); ANION GAP 17 (5-19); ASPARTATE AMINO TRANSFERASE 13 U/L (14-36); BILIRUBIN,DIRECT 0.5 mg/dL (0.0-0.4); BILIRUBIN,TOTAL 0.6 mg/dL (0.2-1.3); BLOOD UREA NITROGEN 58 mg/dL (7-20); CALCIUM 8.2 mg/dL (8.4-10.2); CARBON DIOXIDE 20 mmol/L (22-30); CHLORIDE 88 mmol/L (98-107); GLUCOSE 278 mg/dL (75-110); POTASSIUM 4.4 mmol/L (3.6-5.0); SODIUM 125.4 mmol/L (137-145); TOTAL PROTEIN 6.6 g/dL (6.3-8.2)
[2019-05-27] MEDS: HEPARIN SOD (PORCINE) 5,000 UNIT/ML 1 ML SYRINGE SUBCUT SCH (05:21)
[2019-05-27 05:24] LABS: ABSOLUTE BASOPHILS # (AUTO) 0.1 10^3/uL (0.0-0.2); ABSOLUTE EOSINOPHILS # (AUTO) 0.1 10^3/uL (0.0-0.6); ABSOLUTE LYMPHOCYTES (AUTO) 1.3 10^3/uL (0.5-4.7); ABSOLUTE MONOCYTES (AUTO) 1.3 10^3/uL (0.1-1.4); ABSOLUTE NEUT (AUTO) 7.9 10^3/uL (1.7-8.2); BASOPHILS % (AUTO) 0.6 % (0-2); EOSINOPHILS % (AUTO) 0.6 % (0-6); HEMATOCRIT 29.5 % (36.0-47.0); HEMOGLOBIN 9.9 g/dL (12.0-15.5); LYMPHOCYTES % (AUTO) 12.4 % (13-45); MEAN CORPUSCULAR HGB CONC 33.5 g/dL (32.0-36.0); MEAN CORPUSCULAR VOLUME 81 fl (80-97); MONOCYTES % (AUTO) 12.4 % (3-13); PLATELET COUNT 429 10^3/uL (150-450); RED BLOOD COUNT 3.66 10^6/uL (3.72-5.28); RED CELL DISTRIBUTION WIDTH 14.1 % (11.5-14.0); TOTAL CELLS COUNTED % (AUTO) 100 %; WHITE BLOOD COUNT 10.7 10^3/uL (4.0-10.5)
[2019-05-27 05:46] LABS: ANION GAP 19 (5-19); BLOOD UREA NITROGEN 64 mg/dL (7-20); CALCIUM 8.1 mg/dL (8.4-10.2); CARBON DIOXIDE 19 mmol/L (22-30); CHLORIDE 88 mmol/L (98-107); GLUCOSE 265 mg/dL (75-110); PHOSPHORUS 6.7 mg/dL (2.5-4.5); SODIUM 125.8 mmol/L (137-145)
[2019-05-27 05:50] LABS: POTASSIUM 4.8 mmol/L (3.6-5.0)
[2019-05-27] MEDS ORDERED: NORMAL SALINE 1000 ML 1,000 ML IV PRN ×2 (08:18→08:36)
[2019-05-27] MEDS: INSULIN LISPRO 100 UNIT/ML 3 ML VIAL SUBCUT SCH ×5 (08:25→22:35)
[2019-05-27] MEDS ORDERED: DEXTROSE 50%-WATER 25 GM/50 ML DISP.SYRIN IV PRN ×4 (08:26→12:09)
[2019-05-27] MEDS ORDERED: DEXTROSE 40% GEL 15 GM TUBE PO PRN ×4 (08:26→12:09)
[2019-05-27] MEDS ORDERED: GLUCAGON,HUMAN RECOMB 1 MG INJ IM PRN ×2 (08:26→12:09)
[2019-05-27] MEDS: ONDANSETRON HCL INJ/PF 4 MG/2 ML SDV IV PRN ×2 (09:08→17:45)
[2019-05-27] MEDS: LEVOFLOXACIN 500 MG/D5W RTU 500 MG/100 ML RTUPB IV SCH (09:09)
[2019-05-27] MEDS: NIFEDIPINE 30 MG TAB.ER.24 PO SCH ×2 (09:09→22:34)
[2019-05-27 09:48] LABS: INTERNATIONAL RATION (INR) 1.21; PROTHROMBIN TIME 15.4 SEC (11.4-15.4)
[2019-05-27 09:49] LABS: PARTIAL THROMBOPLASTIN TIME 27.3 SEC (23.5-35.8)
[2019-05-27] MEDS: INSULIN GLARGINE,HUM.REC.ANLOG 1,000 UNIT/10 ML VIAL SUBCUT SCH (09:58)
[2019-05-27] MEDS ORDERED: CALCITRIOL 0.25 MCG CAPSULE PO SCH (10:00)
--- NOTE | 2019-05-27 11:17 | RADIOLOGY REPORT (SQ) ---
EXAM DESCRIPTION: CHEST SINGLE VIEW COMPLETED DATE/TIME: 05/27/2019 11:00 am REASON FOR STUDY: pneumonia, pleural effusions COMPARISON: 05/26/2019. EXAM PARAMETERS: NUMBER OF VIEWS: One view. TECHNIQUE: Single frontal radiographic view of the chest acquired. RADIATION DOSE: NA LIMITATIONS: None. FINDINGS: LUNGS AND PLEURA: Bilateral pleural effusions and patchy airspace disease in the lung base s, right greater than left. MEDIASTINUM AND HILAR STRUCTURES: No masses. Contour normal. HEART AND VASCULAR STRUCTURES: Cardiomegaly. BONES: No acute findings. HARDWARE: None in the chest. OTHER: No other significant finding. IMPRESSION: BILATERAL PLEURAL EFFUSIONS AND PATCHY AIRSPACE DISEASE IN THE LUNG BASES, RIGHT GREATER THAN LEFT. CARDIOMEGALY. OVERALL NO SIGNIFICANT INTERVAL CHANGE. TECHNICAL DOCUMENTATION: JOB ID: [id number] [employer]- All Rights Reserved Reading location - IP/workstation name: [email or web address]
[2019-05-27] MEDS: NORMAL SALINE 1000 ML 1,000 ML IV PRN ×2 (12:00→20:32)
--- NOTE | 2019-05-27 12:29 | PDOC PROGRESS REPORT ---
Subjective Progress Note for:: 05/27/19 Subjective:: MEGAN CARVALHO is a 78 year old patient with past medical history of CKD stage IV with a base creatinine of around 2.5 in the background of hypertension, type 2 diabetes mellitus, hyperlipidemia, presents with chief complaint of shortness of breath, right-sided neck jaw and chest pain. She says she has been having a cough with minimal expectoration for the last couple of weeks. Has also noticed some shaking chills and also was found to be febrile in the ER. Approximately a week ago, patient started to have abdominal pain and diarrhea for which she visited urgent care and she was given clarithromycin and Flagyl. And has associated nausea and vomiting. Her blood work shows leukocytosis of 16,000, hyponatremia with sodium of 127, hyperglycemia with blood glucose of 416, BUN 54 and creatinine 5.15. Her chest x-ray reported as right basilar airspace disease with moderate pleural effusion. Currently when she is seen she is sitting in bed in no distress. She has no appetite. Currently no nausea or vomiting. No complaints of any chest pains or shortness of breath while she is resting. Labs and medications were reviewed with the patient. 05/27/2019. No acute events overnight. Patient is stating that she is feeling much better than yesterday, still complaining of low appetite, and generalized weakness, denies any fever, chills, nausea, vomiting, diarrhea, constipation or any urinary symptoms. Reason For Visit: RIGHT LUNG PNEUMONIA,MIRA ON CKD Physical Exam Vital Signs: Temp Pulse Resp BP Pulse Ox 98.5 F 85 34 H 127/65 H 94 05/27/19 10:51 05/27/19 10:51 05/27/19 10:51 05/27/19 10:51 05/27/19 10:51 Intake & Output 05/26/19 05/27/19 05/28/19 06:59 06:59 06:59 Intake Total 1570 1557 100 Output Total 0 265 Balance 1570 1292 100 Weight 115.1 kg 116.1 kg General appearance: PRESENT: obese Head exam: PRESENT: atraumatic, normocephalic Neck exam: ABSENT: carotid bruit, JVD, lymphadenopathy, thyromegaly Respiratory exam: PRESENT: clear to auscultation ofe. ABSENT: rales, rhonchi, wheezes Cardiovascular exam: PRESENT: RRR. ABSENT: diastolic murmur, rubs, systolic murmur GI/Abdominal exam: PRESENT: normal bowel sounds, soft. ABSENT: distended, gu arding, mass, organolmegaly, rebound, tenderness Extremities exam: PRESENT: full ROM. ABSENT: calf tenderness, clubbing, pedal edema Neurological exam: PRESENT: alert, awake, oriented to person, oriented to place, oriented to time, oriented to situation, CN II-XII grossly intact. ABSENT: motor sensory deficit Results Laboratory Results: 05/27/19 04:41 05/27/19 04:41 05/26/19 05/26/19 05/26/19 12:56 17:57 18:44 WBC RBC Hgb Hct MCV MCH MCHC RDW Plt Count Seg Neutrophils % Lymphocytes % Monocytes % Eosinophils % Basophils % Absolute Neutrophils Absolute Lymphocytes Absolute Monocytes Absolute Eosinophils Absolute Basophils Sodium 125.7 L 125.4 L Potassium 4.5 4.4 Chloride 90 L 88 L Carbon Dioxide 21 L 20 L Anion Gap 15 17 BUN 57 H 58 H Creatinine 6.14 H 6.47 H Est GFR ( Amer) 8 L 8 L Est GFR (Non-Af Amer) 7 L 6 L Glucose 295 H 278 H Calcium 8.2 L 8.2 L Phosphorus Magnesium Total Bilirubin 0.5 0.6 AST 15 13 L ALT 14 19 Alkaline Phosphatase 187 H 194 H Total Protein 6.8 6.6 Albumin 3.5 3.4 L PTH Intact Urine Color CECILIA Urine Appearance CLOUDY Urine pH 5.0 Ur Specific [place] 1.018 Urine Protein 30 H Urine Glucose (UA) NEGATIVE Urine Ketones NEGATIVE Urine Blood SMALL H Urine Nitrite NEGATIVE Ur Leukocyte Esterase NEGATIVE Urine WBC (Auto) 11 Urine RBC (Auto) 12 05/27/19 05/27/19 05/27/19 04:41 04:41 04:41 WBC 10.7 H RBC 3.66 L Hgb 9.9 L Hct 29.5 L MCV 81 MCH 27.0 MCHC 33.5 RDW 14.1 H Plt Count 429 Seg Neutrophils % 74.0 Lymphocytes % 12.4 L Monocytes % 12.4 Eosinophils % 0.6 Basophils % 0.6 Absolute Neutrophils 7.9 Absolute Lymphocytes 1.3 Absolute Monocytes 1.3 Absolute Eosinophils 0.1 Absolute Basophils 0.1 Sodium 125.8 L Potassium 4.8 Chloride 88 L Carbon Dioxide 19 L Anion Gap 19 BUN 64 H Creatinine 6.60 H Est GFR ( Amer) 7 L Est GFR (Non-Af Amer) 6 L Glucose 265 H Calcium 8.1 L Phosphorus 6.7 H Magnesium Total Bilirubin AST ALT Alkaline Phosphatase Total Protein Albumin PTH Intact 355.1 H Urine Color Urine Appearance Urine pH Ur Specific [place] Urine Protein Urine Glucose (UA) Urine Ketones Urine Blood Urine Nitrite Ur Leukocyte Esterase Urine WBC (Auto) Urine RBC (Auto) 05/27/19 05/27/19 04:41 04:41 WBC RBC Hgb Hct MCV MCH MCHC RDW Plt Count Seg Neutrophils % Lymphocytes % Monocytes % Eosinophils % Basophils % Absolute Neutrophils Absolute Lymphocytes Absolute Monocytes Absolute Eosinophils Absolute Basophils Sodium Potassium Chloride Carbon Dioxide Anion Gap BUN Creatinine Est GFR ( Amer) Est GFR (Non-Af Amer) Glucose Calcium Phosphorus Magnesium 1.8 Total Bilirubin AST ALT Alkaline Phosphatase Total Protein 6.2 L Albumin PTH Intact Urine Color Urine Appearance Urine pH Ur Specific [place] Urine Protein Urine Glucose (UA) Urine Ketones Urine Blood Urine Nitrite Ur Leukocyte Esterase Urine WBC (Auto) Urine RBC (Auto) 05/25/19 05/25/19 05/25/19 11:50 11:50 19:08 Creatine Kinase 63 CK-MB (CK-2) 1.74 1.78 Troponin I 0.023 0.031 NT-Pro-B Natriuret Pep 05/25/19 05/26/19 05/26/19 19:08 01:14 01:14 Creatine Kinase 59 52 CK-MB (CK-2) 1.89 Troponin I 0.026 NT-Pro-B Natriuret Pep 05/26/19 05/26/19 05/27/19 08:32 08:32 09:28 Creatine Kinase 60 CK-MB (CK-2) 2.30 Troponin I 0.026 NT-Pro-B Natriuret Pep 88835 H Impressions: Chest CT 05/25/19 14:08 IMPRESSION: Moderate right pleural effusion. Small left pleural effusion. Mild associated lower lobe atelectasis. IMPRESSION: There is some degree of renal atrophy. No acute finding in the abdomen or pelvis. Abdomen/Pelvis CT 05/25/19 14:22 IMPRESSION: Moderate right pleural effusion. Small left pleural effusion. Mild associated lower lobe atelectasis. IMPRESSION: There is some degree of renal atrophy. No acute finding in the abdomen or pelvis. Chest X-Ray 05/27/19 00:00 IMPRESSION: BILATERAL PLEURAL EFFUSIONS AND PATCHY AIRSPACE DISEASE IN THE LUNG BASES, RIGHT GREATER THAN LEFT. CARDIOMEGALY. OVERALL NO SIGNIFICANT INTERVAL CHANGE. Assessment and Plan - Diagnosis (1) Acute and chronic respiratory failure with hypoxia Is this a current diagnosis for this admission?: Yes Plan: Due to underlying pneumonia and pleural effusion. 05/27/2019. SBP 151265, T-max 98.8, pulse 80s RR 1830, SPO2 9094 %FiO2 32% 5 L. WBC 10.7, hemoglobin 9.9, platelets 429, sodium 125.8, potassium 4.8, bicarb 19, BUN 64, creatinine 6.6, BGL 265 Antibiotics day 2. Levofloxacin day 2/5. Continue empiric IV antibiotics, nebs, supplemental oxygen, PRN BiPAP. Follow-up sputum and blood culture. Pending thoracentesis for right-sided pleural effusion. (2) Right lung pneumonia Is this a current diagnosis for this admission?: Yes Plan: Community-acquired pneumonia versus parapneumonic effusion. As per #1. (3) Dehydration Is this a current diagnosis for this admission?: Yes Plan: Due to recent diarrhea. Continue volume resuscitation guided by volume status. Monitor electrolytes and volume status. (4) Diarrhea Qualifiers: Diarrhea type: unspecified type Qualified Code(s): R19.7 - Diarrhea, unspecified Is this a current diagnosis for this admission?: Yes Plan: Resolved. Denies any recent antibiotic abuse. Continue empiric IV antibiotics, monitor electrolytes and replace as needed. C. difficile toxin, stool leukocyte, stool parasite, Gram stain and culture. (5) MIRA on stage IV CKD Is this a current diagnosis for this admission?: Yes Plan: Prerenal. Nonoliguric. Likely worsened due to recent dehydration caused by diarrhea. Strict in and out, diuresis guided by volume status, monitor electrolytes and replace as needed, avoid nephrotoxic agents. Nephrology following. Recommendations noted. (6) Hypertension Qualifiers: Hypertension type: essential hypertension Qualified Code(s): I10 - Essential (primary) hypertension Is this a current diagnosis for this admission?: Yes Plan: Normotensive. Continue home meds, IV hydralazine PRN. Adjust meds as needed. Patient may benefit from JUDY once renal function is back to baseline. (7) Hyponatremia Is this a current diagnosis for this admission?: Yes Plan: Hypovolemic hyponatremia. Likely due to recent GI losses caused by diarrhea. Normal saline guided by volume status, monitor for seizures. Goal of sodium correction 8 to 10 mEq in the next 24 hours. (8) Morbid obesity with BMI of 45.0-49.9, adult Is this a current diagnosis for this admission?: Yes Plan: Diet and lifestyle modification encouraged. (9) Renal osteodystrophy Is this a current diagnosis for this admission?: Yes Plan: Continue calcitriol. (10) Diabetes mellitus, type II Qualifiers: Diabetes mellitus senior care insulin use: with senior care use Diabetes sandrine itus complication status: with hyperglycemia Qualified Code(s): E11.65 - Type 2 diabetes mellitus with hyperglycemia; Z79.4 - assisted (current) use of insulin Is this a current diagnosis for this admission?: Yes Plan: Uncontrolled. A1c > 10%. Not a candidate for metformin and sulfonylurea due to underlying CKD. Diabetic diet, sliding scale insulin, long-acting insulin, pre-meal insulin, Accu-Chek, hypoglycemia protocol. Adjust dosage as needed. Outpatient PCP follow-up. (11) Anemia in CKD (chronic kidney disease) Qualifiers: Chronic kidney disease stage: stage 4 (severe) Qualified Code(s): N18.4 - Chronic kidney disease, stage 4 (severe); D63.1 - Anemia in chronic kidney disease Is this a current diagnosis for this admission?: Yes Plan: Normocytic. Denies any external source of bleeding. Most likely due to CKD. Monitor H&H. Patient may benefit from Procrit administration. Will defer to nephrology. Will obtain iron panel.
[2019-05-27 15:55] LABS: ANION GAP 16 (5-19); BLOOD UREA NITROGEN 68 mg/dL (7-20); CARBON DIOXIDE 19 mmol/L (22-30); CHLORIDE 90 mmol/L (98-107); GLUCOSE 318 mg/dL (75-110); POTASSIUM 4.5 mmol/L (3.6-5.0); SODIUM 124.6 mmol/L (137-145)
--- NOTE | 2019-05-27 17:10 | PDOC PROGRESS REPORT ---
Subjective Progress Note for:: 05/27/19 Reason For Visit: She was seen this morning. She finds she is progressing to more difficulty in breathing. She still coughing. She is now on BiPAP. Chest x-ray done yesterday shows large right pleural effusion along with consolidation. No complaints of any fever or chills. No complaints of any chest pains. Labs and medications were reviewed that shows deteriorating renal functions. Her urine output is only been between 2 and 300. Poor appetite. Discussions were done with the hospitalist Dr. Lopez. Physical Exam Vital Signs: Temp Pulse Resp BP Pulse Ox 97.5 F 88 34 H 132/51 H 94 05/27/19 15:29 05/27/19 15:29 05/27/19 10:51 05/27/19 15:29 05/27/19 15:29 Intake & Output 05/26/19 05/27/19 05/28/19 06:59 06:59 06:59 Intake Total 1570 1557 100 Output Total 0 265 Balance 1570 1292 100 Weight 115.1 kg 116.1 kg General appearance: PRESENT: mild distress - Currently on BiPAP. Respiratory exam: PRESENT: clear to auscultation ofe, decreased breath sounds. ABSENT: crackles Cardiovascular exam: PRESENT: +S1, +S2 GI/Abdominal exam: PRESENT: normal bowel sounds, soft. ABSENT: organomegaly, tenderness Extremities exam: ABSENT: pedal edema Neurological exam: PRESENT: alert, awake, oriented to person, oriented to place Psychiatric exam: PRESENT: appropriate affect Results Laboratory Results: 05/27/19 04:41 05/27/19 09:28 05/26/19 05/26/19 05/27/19 17:57 18:44 04:41 WBC RBC Hgb Hct MCV MCH MCHC RDW Plt Count Seg Neutrophils % Lymphocytes % Monocytes % Eosinophils % Basophils % Absolute Neutrophils Absolute Lymphocytes Absolute Monocytes Absolute Eosinophils Absolute Basophils Sodium 125.4 L 125.8 L Potassium 4.4 4.8 Chloride 88 L 88 L Carbon Dioxide 20 L 19 L Anion Gap 17 19 BUN 58 H 64 H Creatinine 6.47 H 6.60 H Est GFR ( Amer) 8 L 7 L Est GFR (Non-Af Amer) 6 L 6 L Glucose 278 H 265 H Calcium 8.2 L 8.1 L Phosphorus 6.7 H Magnesium Total Bilirubin 0.6 AST 13 L ALT 19 Alkaline Phosphatase 194 H Total Protein 6.6 Albumin 3.4 L PTH Intact Urine Color CECILIA Urine Appearance CLOUDY Urine pH 5.0 Ur Specific [place] 1.018 Urine Protein 30 H Urine Glucose (UA) NEGATIVE Urine Ketones NEGATIVE Urine Blood SMALL H Urine Nitrite NEGATIVE Ur Leukocyte Esterase NEGATIVE Urine WBC (Auto) 11 Urine RBC (Auto) 12 05/27/19 05/27/19 05/27/19 04:41 04:41 04:41 WBC 10.7 H RBC 3.66 L Hgb 9.9 L Hct 29.5 L MCV 81 MCH 27.0 MCHC 33.5 RDW 14.1 H Plt Count 429 Seg Neutrophils % 74.0 Lymphocytes % 12.4 L Monocytes % 12.4 Eosinophils % 0.6 Basophils % 0.6 Absolute Neutrophils 7.9 Absolute Lymphocytes 1.3 Absolute Monocytes 1.3 Absolute Eosinophils 0.1 Absolute Basophils 0.1 Sodium Potassium Chloride Carbon Dioxide Anion Gap BUN Creatinine Est GFR ( Amer) Est GFR (Non-Af Amer) Glucose Calcium Phosphorus Magnesium 1.8 Total Bilirubin AST ALT Alkaline Phosphatase Total Protein Albumin PTH Intact 355.1 H Urine Color Urine Appearance Urine pH Ur Specific [place] Urine Protein Urine Glucose (UA) Urine Ketones Urine Blood Urine Nitrite Ur Leukocyte Esterase Urine WBC (Auto) Urine RBC (Auto) 05/27/19 05/27/19 04:41 09:28 WBC RBC Hgb Hct MCV MCH MCHC RDW Plt Count Seg Neutrophils % Lymphocytes % Monocytes % Eosinophils % Basophils % Absolute Neutrophils Absolute Lymphocytes Absolute Monocytes Absolute Eosinophils Absolute Basophils Sodium 124.6 L Potassium 4.5 Chloride 90 L Carbon Dioxide 19 L Anion Gap 16 BUN 68 H Creatinine 6.67 H Est GFR ( Amer) 7 L Est GFR (Non-Af Amer) 6 L Glucose 318 H Calcium 8.0 L Phosphorus Magnesium Total Bilirubin AST ALT Alkaline Phosphatase Total Protein 6.2 L Albumin PTH Intact Urine Color Urine Appearance Urine pH Ur Specific [place] Urine Protein Urine Glucose (UA) Urine Ketones Urine Blood Urine Nitrite Ur Leukocyte Esterase Urine WBC (Auto) Urine RBC (Auto) 05/25/19 05/25/19 05/25/19 11:50 11:50 19:08 Creatine Kinase 63 CK-MB (CK-2) 1.74 1.78 Troponin I 0.023 0.031 NT-Pro-B Natriuret Pep 05/25/19 05/26/19 05/26/19 19:08 01:14 01:14 Creatine Kinase 59 52 CK-MB (CK-2) 1.89 Troponin I 0.026 NT-Pro-B Natriuret Pep 05/26/19 05/26/19 05/27/19 08:32 08:32 09:28 Creatine Kinase 60 CK-MB (CK-2) 2.30 Troponin I 0.026 NT-Pro-B Natriuret Pep 45052 H Impressions: Chest CT 05/25/19 14:08 IMPRESSION: Moderate right pleural effusion. Small left pleural effusion. Mild associated lower lobe atelectasis. IMPRESSION: There is some degree of renal atrophy. No acute finding in the abdomen or pelvis. Abdomen/Pelvis CT 05/25/19 14:22 IMPRESSION: Moderate right pleural effusion. Small left pleural effusion. Mild associated lower lobe atelectasis. IMPRESSION: There is some degree of renal atrophy. No acute finding in the abdomen or pelvis. Chest X-Ray 05/27/19 00:00 IMPRESSION: BILATERAL PLEURAL EFFUSIONS AND PATCHY AIRSPACE DISEASE IN THE LUNG BASES, RIGHT GREATER THAN LEFT. CARDIOMEGALY. OVERALL NO SIGNIFICANT INTERVAL CHANGE. Assessment & Plan - Diagnosis (1) MRIA on stage IV CKD Is this a current diagnosis for this admission?: Yes Plan: Currently she has become oliguric with a renal output between 2 and 300. Her renal numbers have also gotten worse overnight.She does not show any signs of fluid overload and her electrolytes are relatively stable.Electrolytes are relatively stable. Her breathing is worse which in my opinion is secondary to her worsening pleural effusion and right consolidation.No acute indications for initiation of renal replacements today but will keep a close eye over the next day or 2.Discussed this with hospitalist.Had a long conversation with the patient who understands the current situation. (2) Hyperglycemia due to type 2 diabetes mellitus Is this a current diagnosis for this admission?: Yes (3) Hypertension Qualifiers: Hypertension type: essential hypertension Qualified Code(s): I10 - Essential (primary) hypertension Is this a current diagnosis for this admission?: Yes Plan: Controlled. (4) Hyponatremia Is this a current diagnosis for this admission?: Yes Plan: Sodium today is 124 and yesterday was 125. Continue on fluid restriction. Continue normal saline with gentle hydration. Discussed with hospitalist. (5) Right lung pneumonia Is this a current diagnosis for this admission?: Yes Plan: On levofloxacin. So far sputum and blood cultures are negative. Legionella antigen is pending.She is got moderate pleural effusion on the right side as of x-ray from yesterday. Requested an x-ray this morning and discussed with the hospitalist. If any worse would indicate a thoracentesis. (6) Renal osteodystrophy Is this a current diagnosis for this admission?: Yes Plan: Adjust calcitriol.
[2019-05-27] MEDS: FAMOTIDINE 20 MG TABLET PO SCH (22:35)
[2019-05-28] MEDS: NORMAL SALINE 1000 ML 1,000 ML IV PRN (04:40)
[2019-05-28 06:18] LABS: ABSOLUTE BASOPHILS # (AUTO) 0.1 10^3/uL (0.0-0.2); ABSOLUTE EOSINOPHILS # (AUTO) 0.1 10^3/uL (0.0-0.6); ABSOLUTE LYMPHOCYTES (AUTO) 1.5 10^3/uL (0.5-4.7); ABSOLUTE MONOCYTES (AUTO) 0.9 10^3/uL (0.1-1.4); ABSOLUTE NEUT (AUTO) 6.5 10^3/uL (1.7-8.2); BASOPHILS % (AUTO) 1.4 % (0-2); EOSINOPHILS % (AUTO) 0.8 % (0-6); HEMATOCRIT 30.2 % (36.0-47.0); HEMOGLOBIN 10.1 g/dL (12.0-15.5); LYMPHOCYTES % (AUTO) 16.4 % (13-45); MEAN CORPUSCULAR HEMOGLOBIN 27.2 pg (27.0-33.4); MEAN CORPUSCULAR HGB CONC 33.5 g/dL (32.0-36.0); MEAN CORPUSCULAR VOLUME 81 fl (80-97); MONOCYTES % (AUTO) 9.7 % (3-13); PLATELET COUNT 476 10^3/uL (150-450); RED BLOOD COUNT 3.72 10^6/uL (3.72-5.28); RED CELL DISTRIBUTION WIDTH 14.2 % (11.5-14.0); SEGMENTED NEUTROPHILS % (AUTO) 71.7 % (42-78); TOTAL CELLS COUNTED % (AUTO) 100 %
[2019-05-28 06:27] LABS: ANION GAP 17 (5-19); BLOOD UREA NITROGEN 76 mg/dL (7-20); CALCIUM 8.2 mg/dL (8.4-10.2); CARBON DIOXIDE 18 mmol/L (22-30); CHLORIDE 92 mmol/L (98-107); GLUCOSE 201 mg/dL (75-110); INTERNATIONAL RATION (INR) 1.21; POTASSIUM 4.9 mmol/L (3.6-5.0); PROTHROMBIN TIME 15.4 SEC (11.4-15.4); SODIUM 126.7 mmol/L (137-145)
[2019-05-28 06:28] LABS: PARTIAL THROMBOPLASTIN TIME 36.8 SEC (23.5-35.8)
[2019-05-28] MEDS: HEPARIN SOD (PORCINE) 5,000 UNIT/ML 1 ML SYRINGE SUBCUT SCH ×3 (06:30→22:28)
[2019-05-28 07:40] LABS: HEPATITIS A AB IGM Negative (Negative); HEPATITIS B CORE AB IGM Negative (Negative); HEPATITS B SURFACE ANTIGEN Negative (Negative)
[2019-05-28] MEDS: INSULIN LISPRO 100 UNIT/ML 3 ML VIAL SUBCUT SCH ×7 (09:33→22:29)
[2019-05-28] MEDS: CALCITRIOL 0.25 MCG CAPSULE PO SCH (09:33)
[2019-05-28] MEDS: NIFEDIPINE 30 MG TAB.ER.24 PO SCH ×2 (09:33→22:26)
[2019-05-28] MEDS: INSULIN GLARGINE,HUM.REC.ANLOG 1,000 UNIT/10 ML VIAL SUBCUT SCH (09:35)
--- NOTE | 2019-05-28 10:03 | PDOC PROGRESS REPORT ---
Subjective Progress Note for:: 05/28/19 Subjective:: MEGAN CARVALHO is a 78 year old patient with past medical history of CKD stage IV with a base creatinine of around 2.5 in the background of hypertension, type 2 diabetes mellitus, hyperlipidemia, presents with chief complaint of shortness of breath, right-sided neck jaw and chest pain. She says she has been having a cough with minimal expectoration for the last couple of weeks. Has also noticed some shaking chills and also was found to be febrile in the ER. Approximately a week ago, patient started to have abdominal pain and diarrhea for which she visited urgent care and she was given clarithromycin and Flagyl. And has associated nausea and vomiting. Her blood work shows leukocytosis of 16,000, hyponatremia with sodium of 127, hyperglycemia with blood glucose of 416, BUN 54 and creatinine 5.15. Her chest x-ray reported as right basilar airspace disease with moderate pleural effusion. Currently when she is seen she is sitting in bed in no distress. She has no appetite. Currently no nausea or vomiting. No complaints of any chest pains or shortness of breath while she is resting. Labs and medications were reviewed with the patient. 05/27/2019. No acute events overnight. Patient is stating that she is feeling much better than yesterday, still complaining of low appetite, and generalized weakness, denies any fever, chills, nausea, vomiting, diarrhea, constipation or any urinary symptoms. 05/28/2019. Patient complaining of abdominal pain and bloating, has not passed flatus and has not had a bowel movement since admission, complaining of shortness of breath, denies any fever, chills, nausea, chest pain, diarrhea or any urinary symptoms. Patient is now nonoliguric. Reason For Visit: RIGHT LUNG PNEUMONIA,MIRA ON CKD Physical Exam Vital Signs: Temp Pulse Resp BP Pulse Ox 97.8 F 89 24 H 117/51 L 93 05/28/19 08:05 05/28/19 08:05 05/28/19 08:05 05/28/19 08:05 05/28/19 08:05 Intake & Output 05/27/19 05/28/19 05/29/19 06:59 06:59 06:59 Intake Total 1557 2525 Output Total 265 335 Balance 1292 2190 Weight 116.1 kg 118.3 kg General appearance: PRESENT: mild distress Head exam: PRESENT: atraumatic, normocephalic Respiratory exam: PRESENT: decreased breath sounds - Right lower lobe.. ABSENT: rales, rhonchi, wheezes Cardiovascular exam: PRESENT: RRR. ABSENT: diastolic murmur, rubs, systolic murmur GI/Abdominal exam: PRESENT: distended, guarding, hypoactive bowel sounds, soft. ABSENT: mass, organolmegaly, rebound, tenderness Extremities exam: PRESENT: full ROM. ABSENT: calf tenderness, clubbing, pedal edema Neurological exam: PRESENT: alert, awake, oriented to person, oriented to place, oriented to time, oriented to situation, CN II-XII grossly intact. ABSENT: motor sensory deficit Results Laboratory Results: 05/28/19 05:35 05/28/19 05:35 05/27/19 05/28/19 05/28/19 09:28 05:35 05:35 WBC 9.0 RBC 3.72 Hgb 10.1 L Hct 30.2 L MCV 81 MCH 27.2 MCHC 33.5 RDW 14.2 H Plt Count 476 H Seg Neutrophils % 71.7 Lymphocytes % 16.4 Monocytes % 9.7 Eosinophils % 0.8 Basophils % 1.4 Absolute Neutrophils 6.5 Absolute Lymphocytes 1.5 Absolute Monocytes 0.9 Absolute Eosinophils 0.1 Absolute Basophils 0.1 Sodium 124.6 L 126.7 L Potassium 4.5 4.9 Chloride 90 L 92 L Carbon Dioxide 19 L 18 L Anion Gap 16 17 BUN 68 H 76 H Creatinine 6.67 H 6.83 H Est GFR ( Amer) 7 L 7 L Est GFR (Non-Af Amer) 6 L 6 L Glucose 318 H 201 H Calcium 8.0 L 8.2 L Magnesium 2.0 05/25/19 05/25/19 05/25/19 11:50 11:50 19:08 Creatine Kinase 63 CK-MB (CK-2) 1.74 1.78 Troponin I 0.023 0.031 NT-Pro-B Natriuret Pep 05/25/19 05/26/19 05/26/19 19:08 01:14 01:14 Creatine Kinase 59 52 CK-MB (CK-2) 1.89 Troponin I 0.026 NT-Pro-B Natriuret Pep 05/26/19 05/26/19 05/27/19 08:32 08:32 09:28 Creatine Kinase 60 CK-MB (CK-2) 2.30 Troponin I 0.026 NT-Pro-B Natriuret Pep 45384 H Impressions: Chest CT 05/25/19 14:08 IMPRESSION: Moderate right pleural effusion. Small left pleural effusion. Mild associated lower lobe atelectasis. IMPRESSION: There is some degree of renal atrophy. No acute finding in the abdomen or pelvis. Abdomen/Pelvis CT 05/25/19 14:22 IMPRESSION: Moderate right pleural effusion. Small left pleural effusion. Mild associated lower lobe atelectasis. IMPRESSION: There is some degree of renal atrophy. No acute finding in the abdomen or pelvis. Chest X-Ray 05/27/19 00:00 IMPRESSION: BILATERAL PLEURAL EFFUSIONS AND PATCHY AIRSPACE DISEASE IN THE LUNG BASES, RIGHT GREATER THAN LEFT. CARDIOMEGALY. OVERALL NO SIGNIFICANT INTERVAL CHANGE. Assessment and Plan - Diagnosis (1) Acute and chronic respiratory failure with hypoxia Is this a current diagnosis for this admission?: Yes Plan: No significant improvement. Still dependent on BiPAP and supplemental oxygen. Due to underlying pneumonia and pleural effusion. 05/28/2019. SBP 138876, T-max 97.8, pulse 80s, RR 2430, SPO2 93% 5 L NC. WBC 9.0, hemoglobin 10.1, platelets 476, sodium 126.7, potassium 4.9, bicarb 18, BUN 76, creatinine 6.83, BGL 201. 05/27/2019. SBP 760003, T-max 98.8, pulse 80s RR 1830, SPO2 9094 %FiO2 32% 5 L. WBC 10.7, hemoglobin 9.9, platelets 429, sodium 125.8, potassium 4.8, bicarb 19, BUN 64, creatinine 6.6, BGL 265 Antibiotics day 3 Levofloxacin day 32/5. Continue empiric IV antibiotics, nebs, supplemental oxygen, PRN BiPAP. Follow-up sputum and blood culture. Pending thoracentesis for right-sided pleural effusion. (2) Right lung pneumonia Is this a current diagnosis for this admission?: Yes Plan: Community-acquired pneumonia versus parapneumonic effusion. As per #1. (3) MIRA on stage IV CKD Is this a current diagnosis for this admission?: Yes Plan: Worsening. Oliguric. Prerenal. Likely worsened due to recent dehydration caused by diarrhea. 05/28/2019. SBP 616848, T-max 97.8, pulse 80s, RR 2430, SPO2 93% 5 L NC. I/O 2525/335 balance 2190. WBC 9.0, hemoglobin 10.1, platelets 476, sodium 126.7, potassium 4.9, bicarb 18, BUN 76, creatinine 6.83, BGL 201. 05/27/2019. SBP 238299, T-max 98.8, pulse 80s RR 1830, SPO2 9094 %FiO2 32% 5 L. WBC 10.7, hemoglobin 9.9, platelets 429, sodium 125.8, potassium 4.8, bicarb 19, BUN 64, creatinine 6.6, BGL 265 Strict in and out, hold fluids, after volume status and electrolytes replace as needed, avoid nephrotoxic agents. Nephrology following. Recommendations noted. (4) Dehydration Is this a current diagnosis for this admission?: Yes Plan: Due to recent diarrhea. Patient is becoming oliguric. Hold fluids. 05/27/2019. Fluid intake 2500. Monitor electrolytes and volume status. (5) Diarrhea Qualifiers: Diarrhea type: unspecified type Qualified Code(s): R19.7 - Diarrhea, unspecified Is this a current diagnosis for this admission?: Yes Plan: Resolved. Denies any recent antibiotic abuse. Continue empiric IV antibiotics, monitor electrolytes and replace as needed. C. difficile toxin, stool leukocyte, stool parasite, Gram stain and culture. (6) Hypertension Qualifiers: Hypertension type: essential hypertension Qualified Code(s): I10 - Essential (primary) hypertension Is this a current diagnosis for this admission?: Yes Plan: Normotensive. Continue home meds, IV hydralazine PRN. Adjust meds as needed. Patient may benefit from JUDY once renal function is back to baseline. (7) Hyponatremia Is this a current diagnosis for this admission?: Yes Plan: Hypovolemic hyponatremia. Likely due to recent GI losses caused by diarrhea. Hold normal saline due to oliguria. Monitor for seizures. BMP tomorrow. (8) Morbid obesity with BMI of 45.0-49.9, adult Is this a current diagnosis for this admission?: Yes Plan: Diet and lifestyle modification encouraged. (9) Renal osteodystrophy Is this a current diagnosis for this admission?: Yes Plan: Continue calcitriol. 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 A1c > 10%. Not a candidate for metformin and sulfonylurea due to underlying CKD. Diabetic diet, sliding scale insulin, long-acting insulin, pre-meal insulin, Accu-Chek, hypoglycemia protocol. Adjust dosage as needed. Outpatient PCP follow-up. (11) Anemia in CKD (chronic kidney disease) Qualifiers: Chronic kidney disease stage: stage 4 (severe) Qualified Code(s): N18.4 - Chronic kidney disease, stage 4 (severe); D63.1 - Anemia in chronic kidney disease Is this a current diagnosis for this admission?: Yes Plan: Normocytic. Denies any external source of bleeding. Most likely due to CKD. Monitor H&H. Patient may benefit from Procrit administration. Will defer to nephrology. Will obtain iron panel.
--- NOTE | 2019-05-28 10:27 | RADIOLOGY REPORT (SQ) ---
EXAM DESCRIPTION: KUB/ABDOMEN (SINGLE VIEW) COMPLETED DATE/TIME: 05/28/2019 9:09 am REASON FOR STUDY: abdominal distension COMPARISON: CT chest abdomen pelvis 05/25/2019 NUMBER OF VIEWS: One view. TECHNIQUE: Supine radiographic image of the abdomen acquired. LIMITATIONS: None. FINDINGS: BOWEL GAS PATTERN: Normal bowel gas pattern. No dilated loops. Moderate stool in the colo n CALCIFICATIONS: No suspicious calcifications. SOFT TISSUES: No gross mass or suggestion of organomegaly. HARDWARE: None in the abdomen. BONES: No acute fracture. No worrisome bone lesions. OTHER: There is blunting of the right lateral costophrenic sulcus from small right pleural effusion. Mild bibasilar lung consolidation atelectasis versus pneumonia. IMPRESSION: Nonobstructive bowel gas pattern. Persistent small right pleural effusion and bibasilar airspace disease atelectasis versus pneumonia TECHNICAL DOCUMENTATION: JOB ID: [id number] [email or web address]- All Rights Reserved Reading location - IP/workstation name: [email or web address]
[2019-05-28 14:18] LABS: HEPATITIS B CORE AB TOT Negative (Negative); HEPATITIS B SURFACE AB QUAL Non Reactive (.); HEPATITIS C VIRUS ANTIBODY <0.1 s/co ratio (0.0-0.9)
--- NOTE | 2019-05-28 14:46 | RADIOLOGY REPORT (SQ) ---
EXAM DESCRIPTION: U/S THORACENTESIS WITH IMAGING COMPLETED DATE/TIME: 05/28/2019 2:34 pm REASON FOR STUDY: Pleural Effusion COMPARISON: Chest films 05/26/2019, 05/27/2019 CT chest 05/25/2019 LIMITATIONS: None. PROCEDURE: Procedure, risks, benefit, and alternative explained to patient who then gave written con sent. The posterior right chest wall was marked using ultrasound guidance. A time-out was called fo r correct marking verification. Chest prepped and draped using sterile technique. Local anesthesia a chieved using 6 ml of 1% lidocaine injection. A 6fr Safe-T- Centesis set was introduced into the rig ht pleural space. Fluid was aspirated. The catheter was removed and the entry site was covered with sterile bandage. No immediate complications noted. Specimens of fluid were sent for testing. Post procedure chest x-ray dictated separately demonstrate s no pneumothorax. Images acquired during the procedure were stored on PACS. FINDINGS: ENTRY SITE: posterior right chest. FLUID VOLUME: 800 mL clear yellow fluid FLUID ANALYSIS: Yes, sent for testing OTHER: No additional findings IMPRESSION: SUCCESSFUL RIGHT THORACENTESIS USING ULTRASOUND GUIDANCE. COMMENT: Patient medication list reviewed: Yes- Quality ID# [id number]:Eligible professional attests to doc umenting in the medical record they obtained, updated, or reviewed the patient's current medications. TECHNICAL DOCUMENTATION: JOB ID: [id number] [employer]- All Rights Reserved Reading location - IP/workstation name: [email or web address]
--- NOTE | 2019-05-28 14:48 | RADIOLOGY REPORT (SQ) ---
EXAM DESCRIPTION: CHEST SINGLE VIEW COMPLETED DATE/TIME: 05/28/2019 2:39 pm REASON FOR STUDY: thoracentesis COMPARISON: CT CHEST 05/25/2019 CHEST FILMS 05/25/2019, 05/26/2019, 05/27/2019 EXAM PARAMETERS: NUMBER OF VIEWS: One view. TECHNIQUE: Single frontal radiographic view of the chest acquired. RADIATION DOSE: NA LIMITATIONS: None. FINDINGS: LUNGS AND PLEURA: Post right-sided thoracentesis with removal of 800 mL of fluid from the right chest. No pneumothorax. Minimal right basilar atelectasis. Trace left pleural fluid and minimal left basilar atelectasis persists. MEDIASTINUM AND HILAR STRUCTURES: No masses. Contour normal. HEART AND VASCULAR STRUCTURES: Stable cardiomegaly BONES: No acute findings. HARDWARE: None in the chest. OTHER: No other significant finding. IMPRESSION: No pneumothorax post right-sided thoracentesis. Minimal right basilar atelectasis persi sts. TECHNICAL DOCUMENTATION: JOB ID: [id number] [employer]- All Rights Reserved Reading location - IP/workstation name: [email or web address]
[2019-05-28 15:20] LABS: FLUID SOURCE LUNG; FLUID TYPE PLEURAL
[2019-05-28 15:24] LABS: FLUID APPEARANCE CLEAR; FLUID COLOR YELLOW; FLUID VISCOSITY LIQUID
[2019-05-28] MEDS ORDERED: BISACODYL 10 MG SUPP.RECT PR ONE (16:00)
--- NOTE | 2019-05-28 16:34 | PDOC PROGRESS REPORT ---
Subjective Progress Note for:: 05/28/19 Reason For Visit: Patient seen today.She is currently not on a BiPAP. She is feeling some better. She denies any history of chest pain but has shortness of breath when she exerts urine. Her output is not exactly improving. Labs and medications were reviewed. Physical Exam Vital Signs: Temp Pulse Resp BP Pulse Ox 97.6 F 89 20 131/58 H 97 05/28/19 15:42 05/28/19 15:42 05/28/19 15:42 05/28/19 15:42 05/28/19 15:42 Intake & Output 05/27/19 05/28/19 05/29/19 06:59 06:59 06:59 Intake Total 1557 2525 225 Output Total 265 335 Balance 1292 2190 225 Weight 116.1 kg 118.3 kg General appearance: PRESENT: no acute distress Respiratory exam: PRESENT: clear to auscultation ofe, decreased breath sounds. ABSENT: crackles Cardiovascular exam: PRESENT: +S1, +S2 GI/Abdominal exam: PRESENT: normal bowel sounds, soft. ABSENT: organomegaly, tenderness Extremities exam: ABSENT: pedal edema Neurological exam: PRESENT: alert, awake, oriented to person, oriented to place Psychiatric exam: PRESENT: appropriate affect Results Laboratory Results: 05/28/19 05:35 05/28/19 05:35 05/28/19 05/28/19 05/28/19 05:35 05:35 14:06 WBC 9.0 RBC 3.72 Hgb 10.1 L Hct 30.2 L MCV 81 MCH 27.2 MCHC 33.5 RDW 14.2 H Plt Count 476 H Seg Neutrophils % 71.7 Lymphocytes % 16.4 Monocytes % 9.7 Eosinophils % 0.8 Basophils % 1.4 Absolute Neutrophils 6.5 Absolute Lymphocytes 1.5 Absolute Monocytes 0.9 Absolute Eosinophils 0.1 Absolute Basophils 0.1 Sodium 126.7 L Potassium 4.9 Chloride 92 L Carbon Dioxide 18 L Anion Gap 17 BUN 76 H Creatinine 6.83 H Est GFR ( Amer) 7 L Est GFR (Non-Af Amer) 6 L Glucose 201 H Calcium 8.2 L Magnesium 2.0 Fluid Type PLEURAL Fluid Source LUNG Fluid Color YELLOW Fluid Appearance CLEAR Fluid Viscosity LIQUID Fluid WBC 753 Fluid RBC 1776 05/26/19 17:57 Catheterized Urine Urine Culture - Final 2,000 col/ml 05/25/19 05/25/19 05/25/19 11:50 11:50 19:08 Creatine Kinase 63 CK-MB (CK-2) 1.74 1.78 Troponin I 0.023 0.031 NT-Pro-B Natriuret Pep 05/25/19 05/26/19 05/26/19 19:08 01:14 01:14 Creatine Kinase 59 52 CK-MB (CK-2) 1.89 Troponin I 0.026 NT-Pro-B Natriuret Pep 05/26/19 05/26/19 05/27/19 08:32 08:32 09:28 Creatine Kinase 60 CK-MB (CK-2) 2.30 Troponin I 0.026 NT-Pro-B Natriuret Pep 55911 H Impressions: Chest CT 05/25/19 14:08 IMPRESSION: Moderate right pleural effusion. Small left pleural effusion. Mild associated lower lobe atelectasis. IMPRESSION: There is some degree of renal atrophy. No acute finding in the abdomen or pelvis. Abdomen/Pelvis CT 05/25/19 14:22 IMPRESSION: Moderate right pleural effusion. Small left pleural effusion. Mild associated lower lobe atelectasis. IMPRESSION: There is some degree of renal atrophy. No acute finding in the abdomen or pelvis. KUB X-Ray 05/28/19 00:00 IMPRESSION: Nonobstructive bowel gas pattern. Persistent small right pleural effusion and bibasilar airspace disease atelectasis versus pneumonia Thoracentesis Ultrasound 05/28/19 08:37 IMPRESSION: SUCCESSFUL RIGHT THORACENTESIS USING ULTRASOUND GUIDANCE. Assessment & Plan - Diagnosis (1) MIRA on stage IV CKD Is this a current diagnosis for this admission?: Yes Plan: Currently she has become non oliguric with a renal output between 3 and 400. Her renal numbers have also gotten worse overnight.She does not show any signs of fluid overload and her electrolytes are relatively stable.Electrolytes are relatively stable. Her breathing is worse which in my opinion is secondary to her worsening pleural effusion and right consolidation.No acute indications for initiation of renal replacements today but will keep a close eye over the next day or 2.Discussed this with hospitalist.However given her slow deterioration I discussed with her about may be having to undergo dialysis tomorrow if she continues on this trend and she is willing. Therefore in anticipation of that I am going to ask Dr. Barrett to get me a temporary femoral dialysis catheter. I explained the procedure of dialysis at great length to the patient including complications which includes infection hypotension and rare cases of cardiac arrest and patient willing to proceed. (2) Hyperglycemia due to type 2 diabetes mellitus Is this a current diagnosis for this admission?: Yes Plan: Advised tight control. (3) Hypertension Qualifiers: Hypertension type: essential hypertension Qualified Code(s): I10 - Essential (primary) hypertension Is this a current diagnosis for this admission?: Yes Plan: Controlled. (4) Hyponatremia Is this a current diagnosis for this admission?: Yes Plan: Sodium today is 126 and yesterday was 124. Continue on fluid restriction. Continue normal saline with gentle hydration. Discussed with hospitalist. (5) Right lung pneumonia Is this a current diagnosis for this admission?: Yes Plan: On levofloxacin. (6) Renal osteodystrophy Is this a current diagnosis for this admission?: Yes Plan: Adjust calcitriol.
--- NOTE | 2019-05-28 17:06 | RADIOLOGY REPORT (SQ) ---
EXAM DESCRIPTION: CHEST SINGLE VIEW COMPLETED DATE/TIME: 05/28/2019 4:36 pm REASON FOR STUDY: post thoracentesis COMPARISON: AP chest 05/28/2018, 05/27/2019 CT chest 05/25/2019 EXAM PARAMETERS: NUMBER OF VIEWS: One view. TECHNIQUE: Single frontal radiographic view of the chest acquired. RADIATION DOSE: NA LIMITATIONS: Portable AP chest FINDINGS: LUNGS AND PLEURA: No pneumothorax 2 hours post right-sided thoracentesis. No gross right- sided acute infiltrates. No pleural effusion. Minimal left basilar atelectasis is present. No left pleural effusion or pneumothorax. MEDIASTINUM AND HILAR STRUCTURES: No masses. Contour normal. HEART AND VASCULAR STRUCTURES: Stable cardiomegaly BONES: No acute findings. HARDWARE: None in the chest. OTHER: No other significant finding. IMPRESSION: No pneumothorax 2 hours post right thoracentesis TECHNICAL DOCUMENTATION: JOB ID: [id number] [employer]- All Rights Reserved Reading location - IP/workstation name: [email or web address]
--- NOTE | 2019-05-28 21:54 | XCELERA REPORT ---
[address] [address] Transthoracic Echocardiogram Report Name: MEGAN CARVALHO Age: 78 yrs Gender: Female : 1940 Patient Status: Inpatient Patient Location: [facility]^A Study Date: 05/26/2019 02:00 PM Height: 62 in Weight: 253 lb BSA: 2.1 m2 Procedure: A two-dimensional transthoracic echocardiogram with color flow and Doppler was performed. The study was technically difficult with many images being suboptimal in quality. Reason For Study: chf History: CHF. Ordering Physician: TADEO FLOWERS Performed By: Tiffanie Garcia Interpretation Summary The left ventricle is normal in size. There is normal left ventricular wall thickness. The left ventricular ejection fraction is within normal limits. LV EF is 65% Doppler measurements suggest impaired left ventricular relaxation, which is associated with grade I/IV or mild diastolic dysfunction The left ventricular wall motion is normal. There is no thrombus. Not a study to assess for ASD , VSD ,or PFO. The right ventricle is not well visualized secondary to technical limitations The right atrium is normal. Right atrium not well visualized secondary to technical limitations The left atrial size is normal. There is mild mitral annular calcification. There is no evidence of mitral valve prolapse. There is no vegetation seen on the mitral valve. There is no mitral valve stenosis. There is a trace to mild amount of mitral regurgitation There is no aortic valvular vegetation. There is no aortic valve stenosis There is no LVOT obstruction. No aortic regurgitation is present. There is no tricuspid stenosis. There is a trace to mild amount of tricuspid regurgitation No significant pulmonary hypertension.RVSP is 33 mm of Hg , with RA mmean of 10. There is no pulmonic valvular stenosis. There is no pulmonic valvular regurgitation. The aortic root is normal size. The inferior vena cava was not visualized There is no pericardial effusion. MMode/2D Measurements & Calculations RVDd: 3.8 cm LVIDd: 6.0 cm FS: 42.6 % Ao root diam: 3.0 cm IVSd: 0.82 cm LVIDs: 3.4 cm EDV(Teich): LVPWd: 0.83 cm 179.3 ml Ao root area: ESV(Teich): 48.7 ml6.9 cm2 EF(Teich): 72.8 % EDV(MOD-sp4): SV(MOD-sp4): 80.7 ml 50.0 ml ESV(MOD-sp4): 30.8 ml EF(MOD-sp4): 61.9 % Doppler Measurements & Calculations MV E max nay: MV dec slope: Ao V2 max: LV V1 max P.8 cm/sec 160.7 cm/sec 5.5 mmHg MV A max nay: 608.8 cm/sec2 Ao max PG: LV V1 max: 131.0 cm/sec MV dec time: 0.20 sec10.3 mmHg 116.9 cm/sec MV E/A: 0.91 LV dP/dt: 1021 mmHg/s PA V2 max: TR max nay: 87.0 cm/sec 228.8 cm/sec PA max P.0 mmHg TR max P.1 mmHg Left Ventricle The left ventricle is normal in size. There is normal left ventricular wall thickness. The left ventricular ejection fraction is within normal limits. LV EF is 65%. Doppler measurements suggest impaired left ventricular relaxation, which is associated with grade I/IV or mild diastolic dysfunction. The left ventricular wall motion is normal. There is no thrombus. Not a study to assess for ASD , VSD ,or PFO. Right Ventricle The right ventricle is not well visualized secondary to technical limitations. Atria The right atrium is normal. Right atrium not well visualized secondary to technical limitations. The left atrial size is normal. Mitral Valve There is mild mitral annular calcification. There is no evidence of mitral valve prolapse. There is no vegetation seen on the mitral valve. There is no mitral valve stenosis. There is a trace to mild amount of mitral regurgitation. Aortic Valve There is no aortic valvular vegetation. There is no aortic valve stenosis. There is no LVOT obstruction. No aortic regurgitation is present. Tricuspid Valve There is no tricuspid stenosis. There is a trace to mild amount of tricuspid regurgitation. No significant pulmonary hypertension.RVSP is 33 mm of Hg , with RA mmean of 10. Pulmonic Valve There is no pulmonic valvular stenosis. There is no pulmonic valvular regurgitation. Great Vessels The aortic root is normal size. The inferior vena cava was not visualized. Effusions There is no pericardial effusion. : TADEO FLOWERS > Mohan, Lisa
[2019-05-28] MEDS: FAMOTIDINE 20 MG TABLET PO SCH (22:26)
[2019-05-29] MEDS: NORMAL SALINE 1000 ML 1,000 ML IV PRN ×2 (04:00→17:32)
[2019-05-29 04:50] LABS: HEMATOCRIT 30.5 % (36.0-47.0); HEMOGLOBIN 10.2 g/dL (12.0-15.5); MEAN CORPUSCULAR HEMOGLOBIN 27.1 pg (27.0-33.4); MEAN CORPUSCULAR HGB CONC 33.4 g/dL (32.0-36.0); MEAN CORPUSCULAR VOLUME 81 fl (80-97); PLATELET COUNT 499 10^3/uL (150-450); RED BLOOD COUNT 3.76 10^6/uL (3.72-5.28); RED CELL DISTRIBUTION WIDTH 14.5 % (11.5-14.0); WHITE BLOOD COUNT 8.1 10^3/uL (4.0-10.5)
[2019-05-29 05:24] LABS: ANION GAP 16 (5-19); BLOOD UREA NITROGEN 83 mg/dL (7-20); CALCIUM 8.4 mg/dL (8.4-10.2); CARBON DIOXIDE 19 mmol/L (22-30); CHLORIDE 94 mmol/L (98-107); GLUCOSE 203 mg/dL (75-110); POTASSIUM 4.9 mmol/L (3.6-5.0); SODIUM 128.8 mmol/L (137-145)
[2019-05-29] MEDS: HEPARIN SOD (PORCINE) 5,000 UNIT/ML 1 ML SYRINGE SUBCUT SCH ×3 (06:01→22:26)
--- NOTE | 2019-05-29 07:41 | Operative Report ---
Operative Report DATE OF SURGERY: 05/29/19 PREOPERATIVE DIAGNOSIS: Renal failure requiring hemodialysis. POSTOPERATIVE DIAGNOSIS: Renal failure requiring hemodialysis. OPERATION: 1. Ultrasound evaluation of the right femoral vein. 2. Insertion of temporary hemodialysis catheter via real-time ultrasound access in the right femoral vein. SURGEON: DEIDRA GARCIA GORE CUTTER: None. ANESTHESIA: Local TISSUE REMOVED OR ALTERED: Not applicable. COMPLICATIONS: None. ESTIMATED BLOOD LOSS: 2 mL. INTRAOPERATIVE FINDINGS: Of a satisfactory right femoral vein to support temporary hemodialysis catheter. Easy egress of blood and ingress of heparinized solution to all 3 ports. PROCEDURE: After obtaining informed consent, the patient was positioned supine at bedside. The right groin and adjacent areas were prepared with chlorhexidine and draped out with sterile linen. After the universal timeout the procedure commenced. A steriley sheathed ultrasound probe was used to evaluate the [right femoral vein. Local anesthesia was infiltrated adjacent to the probe. Access into the right femoral was accomplished using a micropuncture needle followed, by micropuncture wire and then with a micropuncture catheter. This was followed by introduction of a 0.035 guidewire, the skin opening was enlarged slightly, serially larger dilators were now placed followed by introduction of a triaysis catheter. All of these transitions were smooth. Each lumen was aspirated of blood and irrigated with heparinized solution. The catheter was now sutured to the skin using 3-0 nylon. A Bio A patch was now applied, followed by sterile dressings. Caps were placed on the end of the each of the lumens. The procedure concluded. Copies dictated operative report to Dr. Deidra Barrett MD.
[2019-05-29] MEDS ORDERED: BISACODYL 5 MG TABEC PO PRN (08:15)
[2019-05-29] MEDS: INSULIN LISPRO 100 UNIT/ML 3 ML VIAL SUBCUT SCH ×7 (08:28→22:25)
[2019-05-29] MEDS: INSULIN GLARGINE,HUM.REC.ANLOG 1,000 UNIT/10 ML VIAL SUBCUT SCH (08:46)
[2019-05-29] MEDS: CALCITRIOL 0.25 MCG CAPSULE PO SCH (09:19)
[2019-05-29] MEDS: LEVOFLOXACIN 500 MG/D5W RTU 500 MG/100 ML RTUPB IV SCH (09:19)
[2019-05-29] MEDS: NIFEDIPINE 30 MG TAB.ER.24 PO SCH ×2 (09:19→22:15)
--- NOTE | 2019-05-29 09:57 | RADIOLOGY REPORT (SQ) ---
EXAM DESCRIPTION: CHEST SINGLE VIEW COMPLETED DATE/TIME: 05/29/2019 9:36 am REASON FOR STUDY: s/p thoracentesis COMPARISON: 05/28/2019. EXAM PARAMETERS: NUMBER OF VIEWS: One view. TECHNIQUE: Single frontal radiographic view of the chest acquired. RADIATION DOSE: NA LIMITATIONS: None. FINDINGS: LUNGS AND PLEURA: Patchy basilar densities and small pleural effusions. No pneumothorax. MEDIASTINUM AND HILAR STRUCTURES: No masses. Contour normal. HEART AND VASCULAR STRUCTURES: Stable cardiomegaly. BONES: No acute findings. HARDWARE: None in the chest. OTHER: No other significant finding. IMPRESSION: STABLE APPEARANCE. NO PNEUMOTHORAX. TECHNICAL DOCUMENTATION: JOB ID: [id number] [employer]- All Rights Reserved Reading location - IP/workstation name: [email or web address]
--- NOTE | 2019-05-29 10:35 | PDOC PROGRESS REPORT ---
Subjective Progress Note for:: 05/29/19 Subjective:: MEGAN CARVALHO is a 78 year old patient with past medical history of CKD stage IV with a base creatinine of around 2.5 in the background of hypertension, type 2 diabetes mellitus, hyperlipidemia, presents with chief complaint of shortness of breath, right-sided neck jaw and chest pain. She says she has been having a cough with minimal expectoration for the last couple of weeks. Has also noticed some shaking chills and also was found to be febrile in the ER. Approximately a week ago, patient started to have abdominal pain and diarrhea for which she visited urgent care and she was given clarithromycin and Flagyl. And has associated nausea and vomiting. Her blood work shows leukocytosis of 16,000, hyponatremia with sodium of 127, hyperglycemia with blood glucose of 416, BUN 54 and creatinine 5.15. Her chest x-ray reported as right basilar airspace disease with moderate pleural effusion. Currently when she is seen she is sitting in bed in no distress. She has no appetite. Currently no nausea or vomiting. No complaints of any chest pains or shortness of breath while she is resting. Labs and medications were reviewed with the patient. 05/27/2019. No acute events overnight. Patient is stating that she is feeling much better than yesterday, still complaining of low appetite, and generalized weakness, denies any fever, chills, nausea, vomiting, diarrhea, constipation or any urinary symptoms. 05/28/2019. Patient complaining of abdominal pain and bloating, has not passed flatus and has not had a bowel movement since admission, complaining of shortness of breath, denies any fever, chills, nausea, chest pain, diarrhea or any urinary symptoms. Patient is now nonoliguric. 05/29/2019. No acute events overnight, status post paracentesis yesterday, abdominal discomfort has improved, has had one bowel movement yesterday, denies any fever, chills, nausea, vomiting, diarrhea, constipation or any urinary symptoms. HD Cath in place, patient will receive hemodialysis today. Sodium 128, potassium 4.9, bicarb 19, BUN 83, creatinine 6.91. Reason For Visit: RIGHT LUNG PNEUMONIA,MIRA ON CKD Physical Exam Vital Signs: Temp Pulse Resp BP Pulse Ox 98.1 F 91 20 147/56 H 94 05/29/19 08:24 05/29/19 08:24 05/29/19 08:24 05/29/19 08:24 05/29/19 08:24 Intake & Output 05/28/19 05/29/19 05/30/19 06:59 06:59 06:59 Intake Total 2525 1345 Output Total 335 600 Balance 2190 745 Weight 118.3 kg 116.6 kg General appearance: PRESENT: no acute distress, morbidly obese, well-developed, well-nourished Head exam: PRESENT: atraumatic, normocephalic Neck exam: ABSENT: carotid bruit, JVD, lymphadenopathy, thyromegaly Respiratory exam: PRESENT: clear to auscultation ofe. ABSENT: rales, rhonchi, wheezes Cardiovascular exam: PRESENT: RRR. ABSENT: diastolic murmur, rubs, systolic murmur GI/Abdominal exam: PRESENT: distended, tenderness - difuse Extremities exam: PRESENT: full ROM. ABSENT: calf tenderness, clubbing, pedal edema Neurological exam: PRESENT: alert, awake, oriented to person, oriented to place, oriented to time, oriented to situation, CN II-XII grossly intact. ABSENT: motor sensory deficit Results Laboratory Results: 05/29/19 04:29 05/29/19 04:29 05/28/19 05/29/19 05/29/19 14:06 04:29 04:29 WBC 8.1 RBC 3.76 Hgb 10.2 L Hct 30.5 L MCV 81 MCH 27.1 MCHC 33.4 RDW 14.5 H Plt Count 499 H Sodium 128.8 L Potassium 4.9 Chloride 94 L Carbon Dioxide 19 L Anion Gap 16 BUN 83 H Creatinine 6.91 H Est GFR ( Amer) 7 L Est GFR (Non-Af Amer) 6 L Glucose 203 H Calcium 8.4 Fluid Type PLEURAL Fluid Source LUNG Fluid Color YELLOW Fluid Appearance CLEAR Fluid Viscosity LIQUID Fluid WBC 753 Fluid RBC 1776 05/27/19 10:35 Catheterized Urine Legionella Urinary Antigen - Final 05/26/19 17:57 Catheterized Urine Urine Culture - Final 2,000 col/ml 05/25/19 05/25/19 05/25/19 11:50 11:50 19:08 Creatine Kinase 63 CK-MB (CK-2) 1.74 1.78 Troponin I 0.023 0.031 NT-Pro-B Natriuret Pep 05/25/19 05/26/19 05/26/19 19:08 01:14 01:14 Creatine Kinase 59 52 CK-MB (CK-2) 1.89 Troponin I 0.026 NT-Pro-B Natriuret Pep 05/26/19 05/26/19 05/27/19 08:32 08:32 09:28 Creatine Kinase 60 CK-MB (CK-2) 2.30 Troponin I 0.026 NT-Pro-B Natriuret Pep 92496 H Impressions: Chest CT 05/25/19 14:08 IMPRESSION: Moderate right pleural effusion. Small left pleural effusion. Mild associated lower lobe atelectasis. IMPRESSION: There is some degree of renal atrophy. No acute finding in the abdomen or pelvis. Abdomen/Pelvis CT 05/25/19 14:22 IMPRESSION: Moderate right pleural effusion. Small left pleural effusion. Mild associated lower lobe atelectasis. IMPRESSION: There is some degree of renal atrophy. No acute finding in the abdomen or pelvis. KUB X-Ray 05/28/19 00:00 IMPRESSION: Nonobstructive bowel gas pattern. Persistent small right pleural effusion and bibasilar airspace disease a telectasis versus pneumonia Thoracentesis Ultrasound 05/28/19 08:37 IMPRESSION: SUCCESSFUL RIGHT THORACENTESIS USING ULTRASOUND GUIDANCE. Chest X-Ray 05/29/19 00:00 IMPRESSION: STABLE APPEARANCE. NO PNEUMOTHORAX. Assessment and Plan - Diagnosis (1) Acute and chronic respiratory failure with hypoxia Is this a current diagnosis for this admission?: Yes Plan: Mild improvement. Still dependent on BiPAP and supplemental oxygen. Due to underlying pneumonia and pleural effusion. 05/28/2019 is status post right-sided thoracentesis. 850 mL removed. WBC 753. Pending LDH, protein, culture and Gram stain. 05/29/2019. SBP 555576, T-max 98.1, pulse 80s, RR 1420, SPO2 94% 5 L NC.Sodium 128, potassium 4.9, bicarb 19, BUN 83, creatinine 6.91. 05/28/2019. SBP 589391, T-max 97.8, pulse 80s, RR 2430, SPO2 93% 5 L NC. WBC 9.0, hemoglobin 10.1, platelets 476, sodium 126.7, potassium 4.9, bicarb 18, BUN 76, creatinine 6.83, BGL 201. 05/27/2019. SBP 685572, T-max 98.8, pulse 80s RR 1830, SPO2 9094 %FiO2 32% 5 L. WBC 10.7, hemoglobin 9.9, platelets 429, sodium 125.8, potassium 4.8, bicarb 19, BUN 64, creatinine 6.6, BGL 265 Antibiotics day 4 Levofloxacin day 4/5. Continue empiric IV antibiotics, nebs, supplemental oxygen, PRN BiPAP. Follow-up sputum and blood culture. (2) Right lung pneumonia Is this a current diagnosis for this admission?: Yes Plan: Community-acquired pneumonia versus parapneumonic effusion. As per #1. (3) MIRA on stage IV CKD Is this a current diagnosis for this admission?: Yes Plan: Worsening. Oliguric. Prerenal. Hemodialysis today. 05/29/2019. SBP 617053, T-max 98.1, pulse 80s, RR 1420, SPO2 94% 5 L NC. Sodium 128, potassium 4.9, bicarb 19, BUN 83, creatinine 6.91. 05/28/2019. SBP 962148, T-max 97.8, pulse 80s, RR 2430, SPO2 93% 5 L NC. I/O 2525/335 balance 2190. WBC 9.0, hemoglobin 10.1, platelets 476, sodium 126.7, potassium 4.9, bicarb 18, BUN 76, creatinine 6.83, BGL 201. 05/27/2019. SBP 876460, T-max 98.8, pulse 80s RR 1830, SPO2 9094 %FiO2 32% 5 L. WBC 10.7, hemoglobin 9.9, platelets 429, sodium 125.8, potassium 4.8, bicarb 19, BUN 64, creatinine 6.6, BGL 265 Strict in and out, hold fluids, after volume status and electrolytes replace as needed, avoid nephrotoxic agents. Nephrology following. Recommendations noted. (4) Diarrhea Qualifiers: Qualified Code(s): R19.7 - Diarrhea, unspecified Is this a current diagnosis for this admission?: Yes Plan: Resolved. Denies any recent antibiotic abuse. Continue empiric IV antibiotics, monitor electrolytes and replace as needed. C. difficile toxin, stool leukocyte, stool parasite, Gram stain and culture. (5) Hypertension Qualifiers: Qualified Code(s): I10 - Essential (primary) hypertension Is this a current diagnosis for this admission?: Yes Plan: Normotensive. Continue home meds, IV hydralazine PRN. Adjust meds as needed. Patient may benefit from JUDY once renal function is back to baseline. (6) Hyponatremia Is this a current diagnosis for this admission?: Yes Plan: Improving. Hypovolemic hyponatremia. Likely due to recent GI losses caused by diarrhea. Monitor for seizures. BMP tomorrow. (7) Morbid obesity with BMI of 45.0-49.9, adult Is this a current diagnosis for this admission?: Yes Plan: Diet and lifestyle modification encouraged. (8) Renal osteodystrophy Is this a current diagnosis for this admission?: Yes Plan: Continue calcitriol. (9) Diabetes mellitus, type II Qualifiers: Qualified Code(s): E11.65 - Type 2 diabetes mellitus with hyperglycemia; Z79.4 - custodial (current) use of insulin Is this a current diagnosis for this admission?: Yes Plan: Uncontrolled. A1c > 10%. Not a candidate for metformin and sulfonylurea due to underlying CKD. Diabetic diet, sliding scale insulin, long-acting insulin, pre-meal insulin, Accu-Chek, hypoglycemia protocol. Adjust dosage as needed. Outpatient PCP follow-up. (10) Anemia in CKD (chronic kidney disease) Qualifiers: Qualified Code(s): N18.4 - Chronic kidney disease, stage 4 (severe); D63.1 - Anemia in chronic kidney disease Is this a current diagnosis for this admission?: Yes Plan: Normocytic. Denies any external source of bleeding. Most likely due to CKD. Monitor H&H. Patient may benefit from Procrit administration. Will defer to nephrology. Will obtain iron panel.
--- NOTE | 2019-05-29 10:37 | PDOC PROGRESS REPORT ---
Subjective Progress Note for:: 05/29/19 Reason For Visit: Patient was seen today. She is currently on BiPAP. She is obviously having some difficulty in her breathing but no chest pains. She denies any history of fever or chills. Urine output is 600 as compared to 300+ from yesterday. Labs and medications were reviewed with the patient that shows slightly worsening renal functions including acidosis and potassium. Sodium is 128 as 126 yesterday. Discussions were done with the treating nurse and with the hospit alist. She had a thoracentesis of her right lung yesterday of approximately 800 cc. As per discussions done yesterday with her she also has had a femoral temporary dialysis catheter placed by Dr. Barrett. Patient is currently undergoing dialysis and is being seen approximately 1430 she is undergoing dialysis without any issues with a Q B/D of 300/600. Plan to remove about 500 cc of fluid. Dialysis orders were reviewed with the treating dialysis nurse. Physical Exam Vital Signs: Temp Pulse Resp BP Pulse Ox 98.1 F 91 20 147/56 H 94 05/29/19 08:24 05/29/19 08:24 05/29/19 08:24 05/29/19 08:24 05/29/19 08:24 Intake & Output 05/28/19 05/29/19 05/30/19 06:59 06:59 06:59 Intake Total 2525 1345 100 Output Total 335 600 Balance 2190 745 100 Weight 118.3 kg 116.6 kg General appearance: PRESENT: mild distress Respiratory exam: PRESENT: clear to auscultation ofe, crackles, decreased breath sounds Cardiovascular exam: PRESENT: +S1, +S2 GI/Abdominal exam: PRESENT: normal bowel sounds, soft. ABSENT: organomegaly, tenderness Extremities exam: PRESENT: pedal edema Neurological exam: PRESENT: alert, awake, oriented to person, oriented to place Psychiatric exam: PRESENT: appropriate affect Skin exam: ABSENT: cyanosis, erythema, mottled Results Laboratory Results: 05/29/19 04:29 05/29/19 04:29 05/28/19 05/29/19 05/29/19 14:06 04:29 04:29 WBC 8.1 RBC 3.76 Hgb 10.2 L Hct 30.5 L MCV 81 MCH 27.1 MCHC 33.4 RDW 14.5 H Plt Count 499 H Sodium 128.8 L Potassium 4.9 Chloride 94 L Carbon Dioxide 19 L Anion Gap 16 BUN 83 H Creatinine 6.91 H Est GFR ( Amer) 7 L Est GFR (Non-Af Amer) 6 L Glucose 203 H Calcium 8.4 Fluid Type PLEURAL Fluid Source LUNG Fluid Color YELLOW Fluid Appearance CLEAR Fluid Viscosity LIQUID Fluid WBC 753 Fluid RBC 1776 05/27/19 10:35 Catheterized Urine Legionella Urinary Antigen - Final 05/26/19 17:57 Catheterized Urine Urine Culture - Final 2,000 col/ml 05/25/19 05/25/19 05/25/19 11:50 11:50 19:08 Creatine Kinase 63 CK-MB (CK-2) 1.74 1.78 Troponin I 0.023 0.031 NT-Pro-B Natriuret Pep 05/25/19 05/26/19 05/26/19 19:08 01:14 01:14 Creatine Kinase 59 52 CK-MB (CK-2) 1.89 Troponin I 0.026 NT-Pro-B Natriuret Pep 05/26/19 05/26/19 05/27/19 08:32 08:32 09:28 Creatine Kinase 60 CK-MB (CK-2) 2.30 Troponin I 0.026 NT-Pro-B Natriuret Pep 20019 H Impressions: Chest CT 05/25/19 14:08 IMPRESSION: Moderate right pleural effusion. Small left pleural effusion. Mild associated lower lobe atelectasis. IMPRESSION: There is some degree of renal atrophy. No acute finding in the abdomen or pelvis. Abdomen/Pelvis CT 05/25/19 14:22 IMPRESSION: Moderate right pleural effusion. Small left pleural effusion. Mild associated lower lobe atelectasis. IMPRESSION: There is some degree of renal atrophy. No acute finding in the abdomen or pelvis. KUB X-Ray 05/28/19 00:00 IMPRESSION: Nonobstructive bowel gas pattern. Persistent small right pleural effusion and bibasilar airspace disease atelectasis versus pneumonia Thoracentesis Ultrasound 05/28/19 08:37 IMPRESSION: SUCCESSFUL RIGHT THORACENTESIS USING ULTRASOUND GUIDANCE. Chest X-Ray 05/29/19 00:00 IMPRESSION: STABLE APPEARANCE. NO PNEUMOTHORAX. Assessment & Plan - Diagnosis (1) MIRA on stage IV CKD Is this a current diagnosis for this admission?: Yes Plan: Renal numbers slowly deteriorating even though her urine output is slightly better from yesterday. Overall she is also short of breath and his chest x-ray today shows even though some improvement of the pleural effusion on the right side she has got early vascular cephalization suggestive of early congestive heart failure. At this point we should start dialyzing her and I discussed the procedure again including complications and patient willing to proceed. Plan to dialyze and remove approximately 1 to 1.5 L of fluid. Dialysis orders were reviewed and discussed with the treating dialysis nurse.Patient will be seen again on dialysis which she is going to undergo in the afternoon. Patient again seen this afternoon undergoing dialysis. She is stable. Vital signs are stable. Dialysis is being supervised to ensure safe and smooth procedure. Plan to remove approximately 500 cc of fluid. Dialysis orders were reviewed with the treating dialysis nurse. (2) Hypertension Qualifiers: Hypertension type: essential hypertension Qualified Code(s): I10 - Essent ial (primary) hypertension Is this a current diagnosis for this admission?: Yes Plan: Controlled. (3) Hyponatremia Is this a current diagnosis for this admission?: Yes Plan: Current sodium is 128 which is slightly better from yesterday. Keep on the fluid restrictions. (4) Right lung pneumonia Is this a current diagnosis for this admission?: Yes Plan: On levofloxacin. Still cultures negative. (5) Renal osteodystrophy Is this a current diagnosis for this admission?: Yes Plan: On calcitriol.
[2019-05-29 11:07] LABS: IRON(TIBC) 31.2 ug/dL (37-170)
[2019-05-29 11:14] LABS: ABSOLUTE RETICS # 0.101 10^6/uL (0.028-0.122); RETICULOCYTE COUNT (AUTO) 2.69 % (0.66-2.85)
[2019-05-29] MEDS: ONDANSETRON HCL INJ/PF 4 MG/2 ML SDV IV PRN (17:32)
[2019-05-29] MEDS: LORAZEPAM 0.5 MG TABLET PO PRN (22:15)
[2019-05-29] MEDS: FAMOTIDINE 20 MG TABLET PO SCH (22:19)
[2019-05-30] MEDS: ONDANSETRON HCL INJ/PF 4 MG/2 ML SDV IV PRN ×2 (03:01→17:07)
[2019-05-30] MEDS: HEPARIN SOD (PORCINE) 5,000 UNIT/ML 1 ML SYRINGE SUBCUT SCH ×3 (05:43→21:40)
[2019-05-30 05:54] LABS: ABSOLUTE EOSINOPHILS # (AUTO) 0.1 10^3/uL (0.0-0.6); ABSOLUTE LYMPHOCYTES (AUTO) 1.3 10^3/uL (0.5-4.7); ABSOLUTE MONOCYTES (AUTO) 0.7 10^3/uL (0.1-1.4); ABSOLUTE NEUT (AUTO) 3.6 10^3/uL (1.7-8.2); BASOPHILS % (AUTO) 0.3 % (0-2); EOSINOPHILS % (AUTO) 1.4 % (0-6); HEMATOCRIT 29.4 % (36.0-47.0); HEMOGLOBIN 9.9 g/dL (12.0-15.5); LYMPHOCYTES % (AUTO) 22.6 % (13-45); MEAN CORPUSCULAR HEMOGLOBIN 27.5 pg (27.0-33.4); MEAN CORPUSCULAR HGB CONC 33.8 g/dL (32.0-36.0); MEAN CORPUSCULAR VOLUME 81 fl (80-97); PLATELET COUNT 429 10^3/uL (150-450); RED BLOOD COUNT 3.61 10^6/uL (3.72-5.28); RED CELL DISTRIBUTION WIDTH 14.6 % (11.5-14.0); SEGMENTED NEUTROPHILS % (AUTO) 63.7 % (42-78); TOTAL CELLS COUNTED % (AUTO) 100 %; WHITE BLOOD COUNT 5.7 10^3/uL (4.0-10.5)
[2019-05-30 06:13] LABS: ALANINE AMINOTRANSFERASE 14 U/L (9-52); ALBUMIN 3.1 g/dL (3.5-5.0); ALKALINE PHOSPHATASE 145 U/L (38-126); ANION GAP 15 (5-19); ASPARTATE AMINO TRANSFERASE 12 U/L (14-36); BILIRUBIN,DIRECT 0.4 mg/dL (0.0-0.4); BILIRUBIN,TOTAL 0.5 mg/dL (0.2-1.3); BLOOD UREA NITROGEN 64 mg/dL (7-20); CALCIUM 8.1 mg/dL (8.4-10.2); CARBON DIOXIDE 20 mmol/L (22-30); CHLORIDE 98 mmol/L (98-107); GLUCOSE 229 mg/dL (75-110); PHOSPHORUS 6.4 mg/dL (2.5-4.5); POTASSIUM 4.8 mmol/L (3.6-5.0); SODIUM 132.5 mmol/L (137-145); TOTAL PROTEIN 6.3 g/dL (6.3-8.2)
[2019-05-30] MEDS ORDERED: DEXTROSE 50%-WATER 25 GM/50 ML DISP.SYRIN IV PRN ×4 (07:49→16:36)
[2019-05-30] MEDS ORDERED: DEXTROSE 40% GEL 15 GM TUBE PO PRN ×4 (07:49→16:36)
[2019-05-30] MEDS ORDERED: GLUCAGON,HUMAN RECOMB 1 MG INJ IM PRN ×2 (07:49→16:36)
[2019-05-30] MEDS ORDERED: INSULIN GLARGINE,HUM.REC.ANLOG 1,000 UNIT/10 ML VIAL SUBCUT SCH ×2 (08:00)
[2019-05-30] MEDS: INSULIN LISPRO 100 UNIT/ML 3 ML VIAL SUBCUT SCH ×7 (09:11→21:32)
[2019-05-30] MEDS: CALCITRIOL 0.25 MCG CAPSULE PO SCH (09:11)
[2019-05-30] MEDS: NIFEDIPINE 30 MG TAB.ER.24 PO SCH ×2 (09:11→21:40)
[2019-05-30] MEDS ORDERED: BISACODYL 5 MG TABEC PO PRN (09:35)
[2019-05-30] MEDS ORDERED: MAGNESIUM HYDROXIDE SUSP 30 ML UDCUP PO PRN (09:35)
[2019-05-30] MEDS: BUSPIRONE HCL 10 MG TABLET PO SCH ×2 (11:54→21:40)
[2019-05-30] MEDS: DOCUSATE SODIUM 100 MG CAPSULE PO SCH ×2 (11:54→17:28)
--- NOTE | 2019-05-30 11:54 | PDOC PROGRESS REPORT ---
Subjective Progress Note for:: 05/30/19 Subjective:: MEGAN CARVALHO is a 78 year old patient with past medical history of CKD stage IV with a base creatinine of around 2.5 in the background of hypertension, type 2 diabetes mellitus, hyperlipidemia, presents with chief complaint of shortness of breath, right-sided neck jaw and chest pain. She says she has been having a cough with minimal expectoration for the last couple of weeks. Has also noticed some shaking chills and also was found to be febrile in the ER. Approximately a week ago, patient started to have abdominal pain and diarrhea for which she visited urgent care and she was given clarithromycin and Flagyl. And has associated nausea and vomiting. Her blood work shows leukocytosis of 16,000, hyponatremia with sodium of 127, hyperglycemia with blood glucose of 416, BUN 54 and creatinine 5.15. Her chest x-ray reported as right basilar airspace disease with moderate pleural effusion. Currently when she is seen she is sitting in bed in no distress. She has no appetite. Currently no nausea or vomiting. No complaints of any chest pains or shortness of breath while she is resting. Labs and medications were reviewed with the patient. 05/27/2019. No acute events overnight. Patient is stating that she is feeling much better than yesterday, still complaining of low appetite, and generalized weakness, denies any fever, chills, nausea, vomiting, diarrhea, constipation or any urinary symptoms. 05/28/2019. Patient complaining of abdominal pain and bloating, has not passed flatus and has not had a bowel movement since admission, complaining of shortness of breath, denies any fever, chills, nausea, chest pain, diarrhea or any urinary symptoms. Patient is now nonoliguric. 05/29/2019. No acute events overnight, status post thoracentesis yesterday, abdominal discomfort has improved, has had one bowel movement yesterday, denies any fever, chills, nausea, vomiting, diarrhea, constipation or any urinary symptoms. HD Cath in place, patient will receive hemodialysis today. Sodium 128, potassium 4.9, bicarb 19, BUN 83, creatinine 6.91. 05/30/2019. No acute events overnight. Patient reporting improvement of her heart shortness of breath and abdominal discomfort. Has had one bowel movement the last 24 hours. Denies any nausea, vomiting, diarrhea or any urinary symptoms. Reason For Visit: RIGHT LUNG PNEUMONIA,MIRA ON CKD Physical Exam Vital Signs: Temp Pulse Resp BP Pulse Ox 98.4 F 83 20 120/44 L 95 05/30/19 07:24 05/30/19 07:24 05/30/19 08:35 05/30/19 07:24 05/30/19 08:35 Intake & Output 05/29/19 05/30/19 05/31/19 06:59 06:59 06:59 Intake Total 1345 1561 Output Total 600 1156 Balance 745 405 Weight 116.6 kg 118.7 kg General appearance: PRESENT: no acute distress, obese, well-developed, well- nourished Head exam: PRESENT: atraumatic, normocephalic Respiratory exam: PRESENT: clear to auscultation ofe. ABSENT: rales, rhonchi, wheezes Cardiovascular exam: PRESENT: RRR. ABSENT: diastolic murmur, rubs, systolic murmur Neurological exam: PRESENT: alert, awake, oriented to person, oriented to place, oriented to time, oriented to situation, CN II-XII grossly intact. ABSENT: motor sensory deficit Results Laboratory Results: 05/30/19 05:02 05/30/19 05:02 05/29/19 05/30/19 05/30/19 04:29 05:02 05:02 WBC 5.7 RBC 3.61 L Hgb 9.9 L Hct 29.4 L MCV 81 MCH 27.5 MCHC 33.8 RDW 14.6 H Plt Count 429 Seg Neutrophils % 63.7 Lymphocytes % 22.6 Monocytes % 12.0 Eosinophils % 1.4 Basophils % 0.3 Absolute Neutrophils 3.6 Absolute Lymphocytes 1.3 Absolute Monocytes 0.7 Absolute Eosinophils 0.1 Absolute Basophils 0.0 Sodium 132.5 L Potassium 4.8 Chloride 98 Carbon Dioxide 20 L Anion Gap 15 BUN 64 H Creatinine 4.85 H Est GFR ( Amer) 11 L Est GFR (Non-Af Amer) 9 L Glucose 229 H Calcium 8.1 L Phosphorus 6.4 H Magnesium 2.0 Iron 31.2 L TIBC 241 L % Saturation 13 Ferritin 54.70 Total Bilirubin 0.5 AST 12 L ALT 14 Alkaline Phosphatase 145 H Total Protein 6.3 Albumin 3.1 L Vitamin B12 970.0 H Folate 14.50 05/26/19 17:57 Catheterized Urine Urine Culture - Final 2,000 col/ml 05/27/19 10:35 Catheterized Urine Legionella Urinary Antigen - Final 05/25/19 05/25/19 05/25/19 11:50 11:50 19:08 Creatine Kinase 63 CK-MB (CK-2) 1.74 1.78 Troponin I 0.023 0.031 NT-Pro-B Natriuret Pep 05/25/19 05/26/19 05/26/19 19:08 01:14 01:14 Creatine Kinase 59 52 CK-MB (CK-2) 1.89 Troponin I 0.026 NT-Pro-B Natriuret Pep 05/26/19 05/26/19 05/27/19 08:32 08:32 09:28 Creatine Kinase 60 CK-MB (CK-2) 2.30 Troponin I 0.026 NT-Pro-B Natriuret Pep 14516 H Impressions: Chest CT 05/25/19 14:08 IMPRESSION: Moderate right pleural effusion. Small left pleural effusion. Mild associated lower lobe atelectasis. IMPRESSION: There is some degree of renal atrophy. No acute finding in the abdomen or pelvis. Abdomen/Pelvis CT 05/25/19 14:22 IMPRESSION: Moderate right pleural effusion. Small left pleural effusion. Mild associated lower lobe atelectasis. IMPRESSION: There is some degree of renal atrophy. No acute finding in the abdomen or pelvis. KUB X-Ray 05/28/19 00:00 IMPRESSION: Nonobstructive bowel gas pattern. Persistent small right pleural effusion and bibasilar airspace disease atelectasis versus pneumonia Thoracentesis Ultrasound 05/28/19 08:37 IMPRESSION: SUCCESSFUL RIGHT THORACENTESIS USING ULTRASOUND GUIDANCE. Chest X-Ray 05/29/19 00:00 IMPRESSION: STABLE APPEARANCE. NO PNEUMOTHORAX. Assessment and Plan - Diagnosis (1) Acute and chronic respiratory failure with hypoxia Is this a current diagnosis for this admission?: Yes Plan: Mild improvement. Still dependent on BiPAP and supplemental oxygen. Due to underlying pneumonia and pleural effusion. 05/30/2019. Status post hemodialysis. 500 cc removed. 05/30/2019: SBP 070628, T-max 98.4, pulse 80s, RR 2025, SPO2 95%, FiO2 32%. Sodium 132.5, potassium 4.8, BUN 64, creatinine 4.8, BGL 229. 05/28/2019 is status post right-sided thoracentesis. 850 mL removed. WBC 753. Pending LDH, protein, culture and Gram stain. 05/29/2019. SBP 433677, T-max 98.1, pulse 80s, RR 1420, SPO2 94% 5 L NC. Sodium 128, potassium 4.9, bicarb 19, BUN 83, creatinine 6.91. 05/28/2019. SBP 418054, T-max 97.8, pulse 80s, RR 2430, SPO2 93% 5 L NC. WBC 9.0, hemoglobin 10.1, platelets 476, sodium 126.7, potassium 4.9, bicarb 18, BUN 76, creatinine 6.83, BGL 201. 05/27/2019. SBP 053970, T-max 98.8, pulse 80s RR 1830, SPO2 9094 %FiO2 32% 5 L. WBC 10.7, hemoglobin 9.9, platelets 429, sodium 125.8, potassium 4.8, bicarb 19, BUN 64, creatinine 6.6, BGL 265 Antibiotics day 5 Levofloxacin day 5/7. Continue empiric IV antibiotics, nebs, supplemental oxygen, PRN BiPAP. Follow-up sputum and blood culture. (2) Right lung pneumonia Is this a current diagnosis for this admission?: Yes Plan: Community-acquired pneumonia versus parapneumonic effusion. As per #1. (3) MIRA on stage IV CKD Is this a current diagnosis for this admission?: Yes Plan: Stable. Mild improvement of oliguria. Prerenal. Hemodialysis on 05/29/2019. 500 cc removed. 05/30/2019: SBP 893494, T-max 98.4, pulse 80s, RR 2025, SPO2 95%, FiO2 32%. Sodium 132.5, potassium 4.8, BUN 64, creatinine 4.8, BGL 229. 05/29/2019. SBP 271238, T-max 98.1, pulse 80s, RR 1420, SPO2 94% 5 L NC. Sodium 128, potassium 4.9, bicarb 19, BUN 83, creatinine 6.91. 05/28/2019. SBP 705511, T-max 97.8, pulse 80s, RR 2430, SPO2 93% 5 L NC. I/O 2525/335 balance 2190. WBC 9.0, hemoglobin 10.1, platelets 476, sodium 126.7, potassium 4.9, bicarb 18, BUN 76, creatinine 6.83, BGL 201. 05/27/2019. SBP 487335, T-max 98.8, pulse 80s RR 1830, SPO2 9094 %FiO2 32% 5 L. WBC 10.7, hemoglobin 9.9, platelets 429, sodium 125.8, potassium 4.8, bicarb 19, BUN 64, creatinine 6.6, BGL 265 Strict in and out, hold fluids, monitor volume status and electrolytes replace as needed, avoid nephrotoxic agents. Nephrology following. Recommendations noted. (4) Diarrhea Qualifiers: Diarrhea type: unspecified type Qualified Code(s): R19.7 - Diarrhea, unspecified Is this a current diagnosis for this admission?: Yes Plan: Resolved. Denies any recent antibiotic abuse. Continue empiric IV antibiotics, monitor electrolytes and replace as needed. C. difficile toxin, stool leukocyte, stool parasite, Gram stain and culture. (5) Hypertension Qualifiers: Hypertension type: essential hypertension Qualified Code(s): I10 - Essential (primary) hypertension Is this a current diagnosis for this admission?: Yes Plan: Normotensive. Continue home meds, IV hydralazine PRN. Adjust meds as needed. Patient may benefit from JUDY once renal function is back to baseline. (6) Hyponatremia Is this a current diagnosis for this admission?: Yes Plan: Improving. Hypovolemic hyponatremia. Likely due to recent GI losses caused by diarrhea. 05/30/2019: Sodium 132.5, potassium 4.8, BUN 64, creatinine 4.8, BGL 229. Monitor for seizures. BMP tomorrow. (7) Morbid obesity with BMI of 45.0-49.9, adult Is this a current diagnosis for this admission?: Yes Plan: Diet and lifestyle modification encouraged. (8) Renal osteodystrophy Is this a current diagnosis for this admission?: Yes Plan: Continue calcitriol. (9) Diabetes mellitus, type II Qualifiers: Diabetes mellitus chcf insulin use: with chcf use Chelsi arvizu complication status: with hyperglycemia Qualified Code(s): E11.65 - Type 2 diabetes mellitus with hyperglycemia; Z79.4 - half-way (current) use of insulin Is this a current diagnosis for this admission?: Yes Plan: Uncontrolled. A1c > 10%. Not a candidate for metformin and sulfonylurea due to underlying CKD. Diabetic diet, sliding scale insulin, long-acting insulin, pre-meal insulin, Accu-Chek, hypoglycemia protocol. Adjust dosage as needed. Outpatient PCP follow-up. (10) Anemia in CKD (chronic kidney disease) Qualifiers: Chronic kidney disease stage: stage 4 (severe) Qualified Code(s): N18.4 - Chronic kidney disease, stage 4 (severe); D63.1 - Anemia in chronic kidney disease Is this a current diagnosis for this admission?: Yes Plan: Normocytic. Denies any external source of bleeding. Most likely due to CKD. Monitor H&H. Patient may benefit from Procrit administration. Will defer to nephrology. Urine panel suggestive of anemia of chronic disease. Ferritin within normal limits.
[2019-05-30] MEDS: NORMAL SALINE 1000 ML 1,000 ML IV PRN (17:07)
[2019-05-30] MEDS ORDERED: ASPIRIN 325 MG TABLET PO ONE (17:29)
[2019-05-30] MEDS ORDERED: NITROGLYCERIN 0.4 MG/TAB 25 TAB/BOTTLE ONE (17:36)
[2019-05-30 18:15] LABS: CREATINE KINASE MB 0.75 ng/mL (<4.55); TROPONIN I 0.018 ng/mL
[2019-05-30] MEDS: FAMOTIDINE 20 MG TABLET PO SCH (21:40)
--- NOTE | 2019-05-31 00:11 | EKG REPORT ---
SEVERITY:- ABNORMAL ECG - SINUS RHYTHM PROBABLE LEFT ATRIAL ABNORMALITY RBBB AND LAFB : Confirmed by: Shon Carrasco 31-May-2019 00:11:07
[2019-05-31] MEDS: HEPARIN SOD (PORCINE) 5,000 UNIT/ML 1 ML SYRINGE SUBCUT SCH ×3 (05:25→22:27)
[2019-05-31 07:00] LABS: ABSOLUTE EOSINOPHILS # (AUTO) 0.2 10^3/uL (0.0-0.6); ABSOLUTE LYMPHOCYTES (AUTO) 1.6 10^3/uL (0.5-4.7); ABSOLUTE MONOCYTES (AUTO) 0.8 10^3/uL (0.1-1.4); ABSOLUTE NEUT (AUTO) 2.6 10^3/uL (1.7-8.2); BASOPHILS % (AUTO) 0.4 % (0-2); EOSINOPHILS % (AUTO) 3.2 % (0-6); HEMATOCRIT 29.9 % (36.0-47.0); LYMPHOCYTES % (AUTO) 30.4 % (13-45); MEAN CORPUSCULAR HEMOGLOBIN 26.9 pg (27.0-33.4); MEAN CORPUSCULAR HGB CONC 33.4 g/dL (32.0-36.0); MEAN CORPUSCULAR VOLUME 81 fl (80-97); MONOCYTES % (AUTO) 14.9 % (3-13); PLATELET COUNT 427 10^3/uL (150-450); RED CELL DISTRIBUTION WIDTH 14.4 % (11.5-14.0); SEGMENTED NEUTROPHILS % (AUTO) 51.1 % (42-78); TOTAL CELLS COUNTED % (AUTO) 100 %; WHITE BLOOD COUNT 5.2 10^3/uL (4.0-10.5)
[2019-05-31 07:18] LABS: ALANINE AMINOTRANSFERASE 20 U/L (9-52); ALBUMIN 3.2 g/dL (3.5-5.0); ALKALINE PHOSPHATASE 134 U/L (38-126); ANION GAP 12 (5-19); ASPARTATE AMINO TRANSFERASE 14 U/L (14-36); BILIRUBIN,DIRECT 0.3 mg/dL (0.0-0.4); BILIRUBIN,TOTAL 0.4 mg/dL (0.2-1.3); BLOOD UREA NITROGEN 67 mg/dL (7-20); CALCIUM 8.6 mg/dL (8.4-10.2); CARBON DIOXIDE 23 mmol/L (22-30); CHLORIDE 101 mmol/L (98-107); GLUCOSE 85 mg/dL (75-110); POTASSIUM 4.5 mmol/L (3.6-5.0); SODIUM 135.5 mmol/L (137-145); TOTAL PROTEIN 6.3 g/dL (6.3-8.2)
[2019-05-31] MEDS ORDERED: DEXTROSE 40% GEL 15 GM TUBE PO PRN ×2 (07:30)
[2019-05-31] MEDS ORDERED: GLUCAGON,HUMAN RECOMB 1 MG INJ IM PRN (07:30)
[2019-05-31] MEDS ORDERED: DEXTROSE 50%-WATER 25 GM/50 ML DISP.SYRIN IV PRN ×2 (07:30)
[2019-05-31] MEDS ORDERED: INSULIN LISPRO 100 UNIT/ML 3 ML VIAL SUBCUT SCH (08:00)
[2019-05-31] MEDS: INSULIN LISPRO 100 UNIT/ML 3 ML VIAL SUBCUT SCH ×6 (08:35→17:00)
--- NOTE | 2019-05-31 09:21 | PDOC PROGRESS REPORT ---
Subjective Progress Note for:: 05/31/19 Subjective:: MEGAN CARVALHO is a 78 year old patient with past medical history of CKD stage IV with a base creatinine of around 2.5 in the background of hypertension, type 2 diabetes mellitus, hyperlipidemia, presents with chief complaint of shortness of breath, right-sided neck jaw and chest pain. She says she has been having a cough with minimal expectoration for the last couple of weeks. Has also noticed some shaking chills and also was found to be febrile in the ER. Approximately a week ago, patient started to have abdominal pain and diarrhea for which she visited urgent care and she was given clarithromycin and Flagyl. And has associated nausea and vomiting. Her blood work shows leukocytosis of 16,000, hyponatremia with sodium of 127, hyperglycemia with blood glucose of 416, BUN 54 and creatinine 5.15. Her chest x-ray reported as right basilar airspace disease with moderate pleural effusion. Currently when she is seen she is sitting in bed in no distress. She has no appetite. Currently no nausea or vomiting. No complaints of any chest pains or shortness of breath while she is resting. Labs and medications were reviewed with the patient. 05/27/2019. No acute events overnight. Patient is stating that she is feeling much better than yesterday, still complaining of low appetite, and generalized weakness, denies any fever, chills, nausea, vomiting, diarrhea, constipation or any urinary symptoms. 05/28/2019. Patient complaining of abdominal pain and bloating, has not passed flatus and has not had a bowel movement since admission, complaining of shortness of breath, denies any fever, chills, nausea, chest pain, diarrhea or any urinary symptoms. Patient is now nonoliguric. 05/29/2019. No acute events overnight, status post thoracentesis yesterday, abdominal discomfort has improved, has had one bowel movement yesterday, denies any fever, chills, nausea, vomiting, diarrhea, constipation or any urinary symptoms. HD Cath in place, patient will receive hemodialysis today. Sodium 128, potassium 4.9, bicarb 19, BUN 83, creatinine 6.91. 05/30/2019. No acute events overnight. Patient reporting improvement of her heart shortness of breath and abdominal discomfort. Has had one bowel movement the last 24 hours. Denies any nausea, vomiting, diarrhea or any urinary symptoms. 05/31/2019. No acute events overnight, reporting mild improvement of her symptoms, still dependent on supplemental oxygen and BiPAP overnight. Had one bowel movement yesterday, denies any fever, chills, nausea, vomiting or any urinary symptoms. SBP 222563, T-max 97.4, pulse 80s, RR 1827, SPO2 98% 5 L NC FiO2 32%. Sodium 135.5, potassium 4.5, bicarb 23, creatinine 4.72, BGL 85. Urine output 450. Reason For Visit: RIGHT LUNG PNEUMONIA,MIRA ON CKD Physical Exam Vital Signs: Temp Pulse Resp BP Pulse Ox 97.4 F 82 18 144/53 H 98 05/31/19 03:40 05/31/19 07:00 05/31/19 04:01 05/31/19 03:40 05/31/19 04:01 Intake & Output 05/30/19 05/31/19 06/01/19 06:59 06:59 06:59 Intake Total 2561 1220 Output Total 1156 450 Balance 1405 770 Weight 118.7 kg 117.5 kg General appearance: PRESENT: mild distress, morbidly obese Head exam: PRESENT: atraumatic, normocephalic Neck exam: ABSENT: carotid bruit, JVD, lymphadenopathy, thyromegaly Respiratory exam: PRESENT: decreased breath sounds. ABSENT: rales, rhonchi, wheezes Cardiovascular exam: PRESENT: RRR. ABSENT: diastolic murmur, rubs, systolic murmur GI/Abdominal exam: PRESENT: normal bowel sounds, soft. ABSENT: distended, guarding, mass, organolmegaly, rebound, tenderness Neurological exam: PRESENT: alert, awake, oriented to person, oriented to place, oriented to time, oriented to situation, CN II-XII grossly intact. ABSENT: motor sensory deficit Results Laboratory Results: 05/31/19 05:50 05/31/19 05:50 05/31/19 05/31/19 05:50 05:50 WBC 5.2 RBC 3.70 L Hgb 10.0 L Hct 29.9 L MCV 81 MCH 26.9 L MCHC 33.4 RDW 14.4 H Plt Count 427 Seg Neutrophils % 51.1 Lymphocytes % 30.4 Monocytes % 14.9 H Eosinophils % 3.2 Basophils % 0.4 Absolute Neutrophils 2.6 Absolute Lymphocytes 1.6 Absolute Monocytes 0.8 Absolute Eosinophils 0.2 Absolute Basophils 0.0 Sodium 135.5 L Potassium 4.5 Chloride 101 Carbon Dioxide 23 Anion Gap 12 BUN 67 H Creatinine 4.72 H Est GFR ( Amer) 11 L Est GFR (Non-Af Amer) 9 L Glucose 85 Calcium 8.6 Total Bilirubin 0.4 AST 14 ALT 20 Alkaline Phosphatase 134 H Total Protein 6.3 Albumin 3.2 L 05/28/19 14:06 Chest - Right Side Gram Stain - Final 05/25/19 15:55 Blood Blood Culture - Final NO GROWTH IN 5 DAYS 05/25/19 15:37 Blood Blood Culture - Final NO GROWTH IN 5 DAYS 05/25/19 05/25/19 05/25/19 11:50 11:50 19:08 Creatine Kinase 63 CK-MB (CK-2) 1.74 1.78 Troponin I 0.023 0.031 NT-Pro-B Natriuret Pep 05/25/19 05/26/19 05/26/19 19:08 01:14 01:14 Creatine Kinase 59 52 CK-MB (CK-2) 1.89 Troponin I 0.026 NT-Pro-B Natriuret Pep 05/26/19 05/26/19 05/27/19 08:32 08:32 09:28 Creatine Kinase 60 CK-MB (CK-2) 2.30 Troponin I 0.026 NT-Pro-B Natriuret Pep 13158 H 05/30/19 17:36 Creatine Kinase CK-MB (CK-2) 0.75 Troponin I 0.018 NT-Pro-B Natriuret Pep Impressions: Chest CT 05/25/19 14:08 IMPRESSION: Moderate right pleural effusion. Small left pleural effusion. Mild associated lower lobe atelectasis. IMPRESSION: There is some degree of renal atrophy. No acute finding in the abdomen or pelvis. Abdomen/Pelvis CT 05/25/19 14:22 IMPRESSION: Moderate right pleural effusion. Small left pleural effusion. Mild associated lower lobe atelectasis. IMPRESSION: There is some degree of renal atrophy. No acute finding in the abdomen or pelvis. KUB X-Ray 05/28/19 00:00 IMPRESSION: Nonobstructive bowel gas pattern. Persistent small right pleural effusion and bibasilar airspace disease atelectasis versus pneumonia Thoracentesis Ultrasound 05/28/19 08:37 IMPRESSION: SUCCESSFUL RIGHT THORACENTESIS USING ULTRASOUND GUIDANCE. Chest X-Ray 05/29/19 00:00 IMPRESSION: STABLE APPEARANCE. NO PNEUMOTHORAX. Assessment and Plan - Diagnosis (1) Acute and chronic respiratory failure with hypoxia Is this a current diagnosis for this admission?: Yes Plan: Mild improvement. Still dependent on BiPAP and supplemental oxygen. Due to underlying pneumonia and pleural effusion. 05/31/2019. SBP 281228, T-max 97.4, pulse 80s, RR 1827, SPO2 98% 5 L NC FiO2 32%. Urine output 450. 05/30/2019. Status post hemodialysis. 500 cc removed. 05/30/2019: SBP 343328, T-max 98.4, pulse 80s, RR 2025, SPO2 95%, FiO2 32%. Sodium 132.5, potassium 4.8, BUN 64, creatinine 4.8, BGL 229. 05/28/2019 is status post right-sided thoracentesis. 850 mL removed. WBC 753. Pending LDH, protein, culture and Gram stain. 05/29/2019. SBP 143277, T-max 98.1, pulse 80s, RR 1420, SPO2 94% 5 L NC. Sodium 128, potassium 4.9, bicarb 19, BUN 83, creatinine 6.91. 05/28/2019. SBP 053360, T-max 97.8, pulse 80s, RR 2430, SPO2 93% 5 L NC. WBC 9.0, hemoglobin 10.1, platelets 476, sodium 126.7, potassium 4.9, bicarb 18, BUN 76, creatinine 6.83, BGL 201. 05/27/2019. SBP 289771, T-max 98.8, pulse 80s RR 1830, SPO2 9094 %FiO2 32% 5 L. WBC 10.7, hemoglobin 9.9, platelets 429, sodium 125.8, potassium 4.8, bicarb 19, BUN 64, creatinine 6.6, BGL 265 Antibiotics day 6 Levofloxacin day 6/7. Continue empiric IV antibiotics, nebs, supplemental oxygen, PRN BiPAP. Follow-up sputum and blood culture. (2) Right lung pneumonia Is this a current diagnosis for this admission?: Yes Plan: Community-acquired pneumonia versus parapneumonic effusion. As per #1. (3) MIRA on stage IV CKD Is this a current diagnosis for this admission?: Yes Plan: Stable. Mild improvement of oliguria urine output 450 Prerenal. Hemodialysis on 05/29/2019. 500 cc removed. 05/31/2019. SBP 893833, T-max 97.4, pulse 80s, RR 1827, SPO2 98% 5 L NC FiO2 32%. Sodium 135.5, potassium 4.5, bicarb 23, creatinine 4.72, BGL 85. Urine output 450. 05/30/2019: SBP 203294, T-max 98.4, pulse 80s, RR 2025, SPO2 95%, FiO2 32%. Sodium 132.5, potassium 4.8, BUN 64, creatinine 4.8, BGL 229. 05/29/2019. SBP 967660, T-max 98.1, pulse 80s, RR 1420, SPO2 94% 5 L NC. Sodium 128, potassium 4.9, bicarb 19, BUN 83, creatinine 6.91. 05/28/2019. SBP 708674, T-max 97.8, pulse 80s, RR 2430, SPO2 93% 5 L NC. I/O 2525/335 balance 2190. WBC 9.0, hemoglobin 10.1, platelets 476, sodium 126.7, potassium 4.9, bicarb 18, BUN 76, creatinine 6.83, BGL 201. 05/27/2019. SBP 189873, T-max 98.8, pulse 80s RR 1830, SPO2 9094 %FiO2 32% 5 L. WBC 10.7, hemoglobin 9.9, platelets 429, sodium 125.8, potassium 4.8, bicarb 19, BUN 64, creatinine 6.6, BGL 265 Strict in and out, hold fluids, monitor volume status and electrolytes replace as needed, avoid nephrotoxic agents. Nephrology following. Recommendations noted. (4) Diarrhea Qualifiers: Diarrhea type: unspecified type Qualified Code(s): R19.7 - Diarrhea, unspecified Is this a current diagnosis for this admission?: Yes Plan: Resolved. Denies any recent antibiotic abuse. Continue empiric IV antibiotics, monitor electrolytes and replace as needed. C. difficile toxin, stool leukocyte, stool parasite, Gram stain and culture. (5) Hypertension Qualifiers: Hypertension type: essential hypertension Qualified Code(s): I10 - Essential (primary) hypertension Is this a current diagnosis for this admission?: Yes Plan: Normotensive. Continue home meds, IV hydralazine PRN. Adjust meds as needed. Patient may benefit from JUDY once renal function is back to baseline. (6) Hyponatremia Is this a current diagnosis for this admission?: Yes Plan: Resovled. Hypovolemic hyponatremia. Likely due to recent GI losses caused by diarrhea. 05/31/2019. Sodium 135.5, potassium 4.5, bicarb 23, creatinine 4.72, BGL 85. Urine output 450. 05/30/2019. Sodium 132.5, potassium 4.8, BUN 64, creatinine 4.8, BGL 229. Monitor for seizures. BMP tomorrow. (7) Morbid obesity with BMI of 45.0-49.9, adult Is this a current diagnosis for this admission?: Yes Plan: Diet and lifestyle modification encouraged. (8) Renal osteodystrophy Is this a current diagnosis for this admission?: Yes Plan: Continue calcitriol. (9) Diabetes mellitus, type II Qualifiers: Diabetes mellitus m[facility] insulin use: with senior technologist use Diabetes mellitus complication status: with hyperglycemia Qualified Code(s): E11.65 - Type 2 diabetes mellitus with hyperglycemia; Z79.4 - care home (current) use of insulin Is this a current diagnosis for this admission?: Yes Plan: Insulin requirement going down since worsening renal function. Fasting blood glucose level 85. Uncontrolled. A1c > 10%. Not a candidate for metformin and sulfonylurea due to underlying CKD. Diabetic diet, sliding scale insulin, long-acting insulin, pre-meal insulin, Accu-Chek, hypoglycemia protocol. Adjust dosage as needed. Outpatient PCP follow-up. (10) Anemia in CKD (chronic kidney disease) Qualifiers: Chronic kidney disease stage: stage 4 (severe) Qualified Code(s): N18.4 - Chronic kidney disease, stage 4 (severe); D63.1 - Anemia in chronic kidney disease Is this a current diagnosis for this admission?: Yes Plan: Normocytic. Denies any external source of bleeding. Most likely due to CKD. Monitor H&H. Patient may benefit from Procrit administration. Will defer to nephrology. Urine panel suggestive of anemia of chronic disease. Ferritin within normal li mits.
[2019-05-31] MEDS: LEVOFLOXACIN 500 MG/D5W RTU 500 MG/100 ML RTUPB IV SCH (09:24)
[2019-05-31] MEDS: BUSPIRONE HCL 10 MG TABLET PO SCH ×2 (09:25→22:27)
[2019-05-31] MEDS: ASPIRIN 81 MG TABLET, CHEWABLE PO SCH (09:25)
[2019-05-31] MEDS: DOCUSATE SODIUM 100 MG CAPSULE PO SCH ×2 (09:25→17:32)
[2019-05-31] MEDS: INSULIN GLARGINE,HUM.REC.ANLOG 1,000 UNIT/10 ML VIAL SUBCUT SCH (09:25)
[2019-05-31] MEDS: NIFEDIPINE 30 MG TAB.ER.24 PO SCH ×2 (09:25→22:27)
[2019-05-31] MEDS: CALCITRIOL 0.25 MCG CAPSULE PO SCH (09:26)
[2019-05-31] MEDS: FAMOTIDINE 20 MG TABLET PO SCH (22:27)
[2019-06-01 04:24] LABS: HEMATOCRIT 31.2 % (36.0-47.0); HEMOGLOBIN 10.4 g/dL (12.0-15.5); MEAN CORPUSCULAR HEMOGLOBIN 27.1 pg (27.0-33.4); MEAN CORPUSCULAR HGB CONC 33.3 g/dL (32.0-36.0); MEAN CORPUSCULAR VOLUME 81 fl (80-97); PLATELET COUNT 403 10^3/uL (150-450); RED BLOOD COUNT 3.84 10^6/uL (3.72-5.28); RED CELL DISTRIBUTION WIDTH 14.4 % (11.5-14.0); WHITE BLOOD COUNT 4.3 10^3/uL (4.0-10.5)
[2019-06-01 04:43] LABS: ANION GAP 11 (5-19); BLOOD UREA NITROGEN 69 mg/dL (7-20); CALCIUM 8.8 mg/dL (8.4-10.2); CARBON DIOXIDE 22 mmol/L (22-30); CHLORIDE 104 mmol/L (98-107); GLUCOSE 131 mg/dL (75-110); POTASSIUM 4.6 mmol/L (3.6-5.0); SODIUM 137.3 mmol/L (137-145)
[2019-06-01] MEDS ORDERED: IBUPROFEN 800 MG TABLET PO ONE (05:00)
[2019-06-01] MEDS ORDERED: EPOETIN ALFA INJ 20000 UNIT/1 ML VIAL (RENAL) IV PRN (05:00)
[2019-06-01] MEDS: HEPARIN SOD (PORCINE) 5,000 UNIT/ML 1 ML SYRINGE SUBCUT SCH ×3 (05:30→21:53)
[2019-06-01] MEDS ORDERED: EPOETIN ALFA-EPBX 10,000 UNIT/ML VIAL (RENAL) IV PRN (07:34)
[2019-06-01] MEDS: INSULIN LISPRO 100 UNIT/ML 3 ML VIAL SUBCUT SCH ×5 (08:13→21:45)
--- NOTE | 2019-06-01 10:15 | PDOC PROGRESS REPORT ---
Subjective Progress Note for:: 06/01/19 Subjective:: MEGAN CARVALHO is a 78 year old patient with past medical history of CKD stage IV with a base creatinine of around 2.5 in the background of hypertension, type 2 diabetes mellitus, hyperlipidemia, presents with chief complaint of shortness of breath, right-sided neck jaw and chest pain. She says she has been having a cough with minimal expectoration for the last couple of weeks. Has also noticed some shaking chills and also was found to be febrile in the ER. Approximately a week ago, patient started to have abdominal pain and diarrhea for which she visited urgent care and she was given clarithromycin and Flagyl. And has associated nausea and vomiting. Her blood work shows leukocytosis of 16,000, hyponatremia with sodium of 127, hyperglycemia with blood glucose of 416, BUN 54 and creatinine 5.15. Her chest x-ray reported as right basilar airspace disease with moderate pleural effusion. Currently when she is seen she is sitting in bed in no distress. She has no appetite. Currently no nausea or vomiting. No complaints of any chest pains or shortness of breath while she is resting. Labs and medications were reviewed with the patient. 05/27/2019. No acute events overnight. Patient is stating that she is feeling much better than yesterday, still complaining of low appetite, and generalized weakness, denies any fever, chills, nausea, vomiting, diarrhea, constipation or any urinary symptoms. 05/28/2019. Patient complaining of abdominal pain and bloating, has not passed flatus and has not had a bowel movement since admission, complaining of shortness of breath, denies any fever, chills, nausea, chest pain, diarrhea or any urinary symptoms. Patient is now nonoliguric. 05/29/2019. No acute events overnight, status post thoracentesis yesterday, abdominal discomfort has improved, has had one bowel movement yesterday, denies any fever, chills, nausea, vomiting, diarrhea, constipation or any urinary symptoms. HD Cath in place, patient will receive hemodialysis today. Sodium 128, potassium 4.9, bicarb 19, BUN 83, creatinine 6.91. 05/30/2019. No acute events overnight. Patient reporting improvement of her heart shortness of breath and abdominal discomfort. Has had one bowel movement the last 24 hours. Denies any nausea, vomiting, diarrhea or any urinary symptoms. 05/31/2019. No acute events overnight, reporting mild improvement of her symptoms, still dependent on supplemental oxygen and BiPAP overnight. Had one bowel movement yesterday, denies any fever, chills, nausea, vomiting or any urinary symptoms. SBP 239407, T-max 97.4, pulse 80s, RR 1827, SPO2 98% 5 L NC FiO2 32%. Sodium 135.5, potassium 4.5, bicarb 23, creatinine 4.72, BGL 85. Urine output 450. 06/01/2019. No acute events overnight, reporting persistent shortness of breath, dependent on oxygen and BiPAP. Denies any fever, chills, nausea, vomiting, diarrhea, constipation or any urinary symptoms. Sodium 137, potassium 4.6, bicarb 22, BUN 69, creatinine 4.1 SBP 874824, T-max 97.9, pulse 80s, RR 2030, SPO2 96% 5 L NC. Reason For Visit: RIGHT LUNG PNEUMONIA,MIRA ON CKD Physical Exam Vital Signs: Temp Pulse Resp BP Pulse Ox 97.9 F 81 26 H 145/45 H 96 06/01/19 07:17 06/01/19 07:17 06/01/19 07:17 06/01/19 07:17 06/01/19 07:35 Intake & Output 05/31/19 06/01/19 06/02/19 06:59 06:59 06:59 Intake Total 1220 320 Output Total 450 750 Balance 770 -430 Weight 117.5 kg 117 kg General appearance: PRESENT: no acute distress, obese, well-developed, well- nourished Head exam: PRESENT: atraumatic, normocephalic Neck exam: ABSENT: carotid bruit, JVD, lymphadenopathy, thyromegaly Respiratory exam: PRESENT: decreased breath sounds. ABSENT: rales, rhonchi, wheezes Cardiovascular exam: PRESENT: RRR. ABSENT: diastolic murmur, rubs, systolic murmur Extremities exam: PRESENT: full ROM. ABSENT: calf tenderness, clubbing, pedal edema Neurological exam: PRESENT: alert, awake, oriented to person, oriented to place, oriented to time, oriented to situation, CN II-XII grossly intact. ABSENT: motor sensory deficit Results Laboratory Results: 06/01/19 04:05 06/01/19 04:05 05/28/19 05/28/19 05/28/19 14:06 14:06 14:06 WBC RBC Hgb Hct MCV MCH MCHC RDW Plt Count Sodium Potassium Chloride Carbon Dioxide Anion Gap BUN Creatinine Est GFR ( Amer) Est GFR (Non-Af Amer) Glucose Calcium Fluid Glucose 229 Fluid Total Protein Fluid LDH 85 Fluid Amylase 13 05/28/19 06/01/19 06/01/19 14:06 04:05 04:05 WBC 4.3 RBC 3.84 Hgb 10.4 L Hct 31.2 L MCV 81 MCH 27.1 MCHC 33.3 RDW 14.4 H Plt Count 403 Sodium 137.3 Potassium 4.6 Chloride 104 Carbon Dioxide 22 Anion Gap 11 BUN 69 H Creatinine 4.19 H Est GFR ( Amer) 12 L Est GFR (Non-Af Amer) 10 L Glucose 131 H Calcium 8.8 Fluid Glucose Fluid Total Protein 2.2 Fluid LDH Fluid Amylase 05/28/19 14:06 Chest - Right Side Gram Stain - Final 05/28/19 14:06 Chest - Right Side Body Fluid Culture - Final NO AEROBIC OR ANAEROBIC ORGANISMS RECOVERED 05/25/19 05/25/19 05/25/19 11:50 11:50 19:08 Creatine Kinase 63 CK-MB (CK-2) 1.74 1.78 Troponin I 0.023 0.031 NT-Pro-B Natriuret Pep 05/25/19 05/26/19 05/26/19 19:08 01:14 01:14 Creatine Kinase 59 52 CK-MB (CK-2) 1.89 Troponin I 0.026 NT-Pro-B Natriuret Pep 05/26/19 05/26/19 05/27/19 08:32 08:32 09:28 Creatine Kinase 60 CK-MB (CK-2) 2.30 Troponin I 0.026 NT-Pro-B Natriuret Pep 35540 H 05/30/19 17:36 Creatine Kinase CK-MB (CK-2) 0.75 Troponin I 0.018 NT-Pro-B Natriuret Pep Impressions: Chest CT 05/25/19 14:08 IMPRESSION: Moderate right pleural effusion. Small left pleural effusion. Mild associated lower lobe atelectasis. IMPRESSION: There is some degree of renal atrophy. No acute finding in the abdomen or pelvis. Abdomen/Pelvis CT 05/25/19 14:22 IMPRESSION: Moderate right pleural effusion. Small left pleural effusion. Mild associated lower lobe atelectasis. IMPRESSION: There is some degree of renal atrophy. No acute finding in the abdomen or pelvis. KUB X-Ray 05/28/19 00:00 IMPRESSION: Nonobstructive bowel gas pattern. Persistent small right pleural effusion and bibasilar airspace disease atelectasis versus pneumonia Thoracentesis Ultrasound 05/28/19 08:37 IMPRESSION: SUCCESSFUL RIGHT THORACENTESIS USING ULTRASOUND GUIDANCE. Chest X-Ray 05/29/19 00:00 IMPRESSION: STABLE APPEARANCE. NO PNEUMOTHORAX. Assessment and Plan - Diagnosis (1) Acute and chronic respiratory failure with hypoxia Is this a current diagnosis for this admission?: Yes Plan: Mild improvement. Still dependent on BiPAP and supplemental oxygen. Due to underlying pneumonia and pleural effusion and worsening CKD. 06/01/2019. SBP 017609, T-max 97.9, pulse 80s, RR 2030, SPO2 96% 5 L NC. Urine output 750 05/31/2019. SBP 635917, T-max 97.4, pulse 80s, RR 1827, SPO2 98% 5 L NC FiO2 32%. Urine output 450. 05/30/2019. Status post hemodialysis. 500 cc removed. 05/30/2019: SBP 239075, T-max 98.4, pulse 80s, RR 2025, SPO2 95%, FiO2 32%. Sodium 132.5, potassium 4.8, BUN 64, creatinine 4.8, BGL 229. 05/28/2019 is status post right-sided thoracentesis. 850 mL removed. WBC 753. Pending LDH, protein, culture and Gram stain. 05/29/2019. SBP 772802, T-max 98.1, pulse 80s, RR 1420, SPO2 94% 5 L NC. Sodium 128, potassium 4.9, bicarb 19, BUN 83, creatinine 6.91. 05/28/2019. SBP 398688, T-max 97.8, pulse 80s, RR 2430, SPO2 93% 5 L NC. WBC 9.0, hemoglobin 10.1, platelets 476, sodium 126.7, potassium 4.9, bicarb 18, BUN 76, creatinine 6.83, BGL 201. 05/27/2019. SBP 686588, T-max 98.8, pulse 80s RR 1830, SPO2 9094 %FiO2 32% 5 L. WBC 10.7, hemoglobin 9.9, platelets 429, sodium 125.8, potassium 4.8, bicarb 19, BUN 64, creatinine 6.6, BGL 265 Antibiotics day 7 Levofloxacin day 06/07. DC antibiotics. Continue empiric IV antibiotics, nebs, supplemental oxygen, PRN BiPAP. Cultures negative. (2) Right lung pneumonia Is this a current diagnosis for this admission?: Yes Plan: Community-acquired pneumonia versus parapneumonic effusion. As per #1. (3) MIRA on stage IV CKD Is this a current diagnosis for this admission?: Yes Plan: Stable. Mild improvement of oliguria urine output 750 Prerenal. Hemodialysis on 06/01/2019, 05/29/2019. 05/31/2019. SBP 607374, T-max 97.4, pulse 80s, RR 1827, SPO2 98% 5 L NC FiO2 32%. Sodium 135.5, potassium 4.5, bicarb 23, creatinine 4.72, BGL 85. Urine output 450. 05/30/2019: SBP 463047, T-max 98.4, pulse 80s, RR 2025, SPO2 95%, FiO2 32%. Sodium 132.5, potassium 4.8, BUN 64, creatinine 4.8, BGL 229. 05/29/2019. SBP 681711, T-max 98.1, pulse 80s, RR 1420, SPO2 94% 5 L NC. Sodium 128, potassium 4.9, bicarb 19, BUN 83, creatinine 6.91. 05/28/2019. SBP 839631, T-max 97.8, pulse 80s, RR 2430, SPO2 93% 5 L NC. I/O 2525/335 balance 2190. WBC 9.0, hemoglobin 10.1, platelets 476, sodium 126.7, potassium 4.9, bicarb 18, BUN 76, creatinine 6.83, BGL 201. 05/27/2019. SBP 421295, T-max 98.8, pulse 80s RR 1830, SPO2 9094 %FiO2 32% 5 L. WBC 10.7, hemoglobin 9.9, platelets 429, sodium 125.8, potassium 4.8, bicarb 19, BUN 64, creatinine 6.6, BGL 265 Strict in and out, hold fluids, monitor volume status and electrolytes replace as needed, avoid nephrotoxic agents. Nephrology following. Recommendations noted. (4) Hypertension Qualifiers: Hypertension type: essential hypertension Qualified Code(s): I10 - Essential (primary) hypertension Is this a current diagnosis for this admission?: Yes Plan: Normotensive. Continue home meds, IV hydralazine PRN. Adjust meds as needed. Patient may benefit from JUDY once renal function is back to baseline. 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 Fasting blood glucose level 85. Uncontrolled. A1c > 10%. Not a candidate for metformin and sulfonylurea due to underlying CKD. Diabetic diet, sliding scale insulin, long-acting insulin, pre-meal insulin, Accu-Chek, hypoglycemia protocol. Adjust dosage as needed. Outpatient PCP follow-up. (6) Anemia in CKD (chronic kidney disease) Qualifiers: Chronic kidney disease stage: stage 4 (severe) Qualified Code(s): N18.4 - Chronic kidney disease, stage 4 (severe); D63.1 - Anemia in chronic kidney disease Is this a current diagnosis for this admission?: Yes Plan: Normocytic. Denies any external source of bleeding. Most likely due to CKD. Monitor H&H. Patient may benefit from Procrit administration. Will defer to nephrology. Urine panel suggestive of anemia of chronic disease. Ferritin within normal limits. (7) Hyponatremia Is this a current diagnosis for this admission?: Yes Plan: Resovled. Hypovolemic hyponatremia. Likely due to recent GI losses caused by diarrhea. 05/31/2019. Sodium 135.5, potassium 4.5, bicarb 23, creatinine 4.72, BGL 85. Urine output 450. 05/30/2019. Sodium 132.5, potassium 4.8, BUN 64, creatinine 4.8, BGL 229. Monitor for seizures. BMP tomorrow. (8) Diarrhea Qualifiers: Diarrhea type: unspecified type Qualified Code(s): R19.7 - Diarrhea, un specified Is this a current diagnosis for this admission?: Yes Plan: Resolved. Denies any recent antibiotic abuse. Continue empiric IV antibiotics, monitor electrolytes and replace as needed. C. difficile toxin, stool leukocyte, stool parasite, Gram stain and culture. (9) Morbid obesity with BMI of 45.0-49.9, adult Is this a current diagnosis for this admission?: Yes Plan: Diet and lifestyle modification encouraged. (10) Renal osteodystrophy Is this a current diagnosis for this admission?: Yes Plan: Continue calcitriol.
[2019-06-01] MEDS: NIFEDIPINE 30 MG TAB.ER.24 PO SCH ×2 (10:30→21:53)
[2019-06-01] MEDS: DOCUSATE SODIUM 100 MG CAPSULE PO SCH ×2 (11:05→17:22)
[2019-06-01] MEDS: BUSPIRONE HCL 10 MG TABLET PO SCH ×2 (11:05→21:53)
[2019-06-01] MEDS: ASPIRIN 81 MG TABLET, CHEWABLE PO SCH (11:05)
[2019-06-01] MEDS: INSULIN GLARGINE,HUM.REC.ANLOG 1,000 UNIT/10 ML VIAL SUBCUT SCH (11:05)
[2019-06-01] MEDS: CALCITRIOL 0.25 MCG CAPSULE PO SCH (11:12)
--- NOTE | 2019-06-01 12:30 | PDOC PROGRESS REPORT ---
Subjective Progress Note for:: 06/01/19 Reason For Visit: Patient was seen on dialysis today. She is undergoing dialysis without any issues. She denies any history of chest pain or shortness of breath. Appetite is still not the best. Still feels gassy. Urine output is slightly better than before. Labs and medications were reviewed with the patient. Dialysis orders were reviewed with the treating dialysis nurse. Physical Exam Vital Signs: Temp Pulse Resp BP Pulse Ox 97.8 F 82 22 H 131/41 H 94 06/01/19 11:08 06/01/19 11:08 06/01/19 11:08 06/01/19 11:08 06/01/19 11:08 Intake & Output 05/31/19 06/01/19 06/02/19 06:59 06:59 06:59 Intake Total 1220 320 Output Total 450 750 Balance 770 -430 Weight 117.5 kg 117 kg General appearance: PRESENT: no acute distress Respiratory exam: PRESENT: clear to auscultation ofe, decreased breath sounds. ABSENT: crackles Cardiovascular exam: PRESENT: +S1, +S2 GI/Abdominal exam: PRESENT: normal bowel sounds, soft. ABSENT: organomegaly, tenderness Extremities exam: PRESENT: pedal edema Neurological exam: PRESENT: alert, awake, oriented to person, oriented to place Psychiatric exam: PRESENT: appropriate affect Skin exam: ABSENT: erythema, mottled, rash Results Laboratory Results: 06/01/19 04:05 06/01/19 04:05 05/28/19 05/28/19 05/28/19 14:06 14:06 14:06 WBC RBC Hgb Hct MCV MCH MCHC RDW Plt Count Sodium Potassium Chloride Carbon Dioxide Anion Gap BUN Creatinine Est GFR ( Amer) Est GFR (Non-Af Amer) Glucose Calcium Fluid Glucose 229 Fluid Total Protein Fluid LDH 85 Fluid Amylase 13 05/28/19 06/01/19 06/01/19 14:06 04:05 04:05 WBC 4.3 RBC 3.84 Hgb 10.4 L Hct 31.2 L MCV 81 MCH 27.1 MCHC 33.3 RDW 14.4 H Plt Count 403 Sodium 137.3 Potassium 4.6 Chloride 104 Carbon Dioxide 22 Anion Gap 11 BUN 69 H Creatinine 4.19 H Est GFR ( Amer) 12 L Est GFR (Non-Af Amer) 10 L Glucose 131 H Calcium 8.8 Fluid Glucose Fluid Total Protein 2.2 Fluid LDH Fluid Amylase 05/28/19 14:06 Chest - Right Side Gram Stain - Final 05/28/19 14:06 Chest - Right Side Body Fluid Culture - Final NO AEROBIC OR ANAEROBIC ORGANISMS RECOVERED 05/25/19 05/25/19 05/25/19 11:50 11:50 19:08 Creatine Kinase 63 CK-MB (CK-2) 1.74 1.78 Troponin I 0.023 0.031 NT-Pro-B Natriuret Pep 05/25/19 05/26/19 05/26/19 19:08 01:14 01:14 Creatine Kinase 59 52 CK-MB (CK-2) 1.89 Troponin I 0.026 NT-Pro-B Natriuret Pep 05/26/19 05/26/19 05/27/19 08:32 08:32 09:28 Creatine Kinase 60 CK-MB (CK-2) 2.30 Troponin I 0.026 NT-Pro-B Natriuret Pep 70786 H 05/30/19 17:36 Creatine Kinase CK-MB (CK-2) 0.75 Troponin I 0.018 NT-Pro-B Natriuret Pep Impressions: Chest CT 05/25/19 14:08 IMPRESSION: Moderate right pleural effusion. Small left pleural effusion. Mild associated lower lobe atelectasis. IMPRESSION: There is some degree of renal atrophy. No acute finding in the abdomen or pelvis. Abdomen/Pelvis CT 05/25/19 14:22 IMPRESSION: Moderate right pleural effusion. Small left pleural effusion. Mild associated lower lobe atelectasis. IMPRESSION: There is some degree of renal atrophy. No acute finding in the abdomen or pelvis. KUB X-Ray 05/28/19 00:00 IMPRESSION: Nonobstructive bowel gas pattern. Persistent small right pleural effusion and bibasilar airspace disease atelectasis versus pneumonia Thoracentesis Ultrasound 05/28/19 08:37 IMPRESSION: SUCCESSFUL RIGHT THORACENTESIS USING ULTRASOUND GUIDANCE. Chest X-Ray 05/29/19 00:00 IMPRESSION: STABLE APPEARANCE. NO PNEUMOTHORAX. Assessment & Plan - Diagnosis (1) MIRA on stage IV CKD Is this a current diagnosis for this admission?: Yes Plan: Patient again seen undergoing dialysis. She is stable. However her renal numbers are still not satisfactory. We will plan for this dialysis today and then monitor on her on a regular basis for further dialysis. Vital signs are stable. Dialysis is being supervised to ensure safe and smooth procedure. Plan to remove no fluid. Dialysis orders were reviewed with the treating dialysis nurse. (2) Hypertension Qualifiers: Hypertension type: essential hypertension Qualified Code(s): I10 - Essential (primary) hypertension Is this a current diagnosis for this admission?: Yes Plan: Controlled. (3) Hyponatremia Is this a current diagnosis for this admission?: Yes Plan: Currently resolved. Monitor. (4) Right lung pneumonia Is this a current diagnosis for this admission?: Yes Plan: On levofloxacin. Also had a parapneumonic effusion which underwent thoracentesis.Still cultures negative. (5) Renal osteodystrophy Is this a current diagnosis for this admission?: Yes Plan: On calcitriol.
[2019-06-01] MEDS: PROMETHAZINE HCL INJ 25 MG/1 ML VIAL IV PRN (19:22)
[2019-06-01] MEDS: FAMOTIDINE 20 MG TABLET PO SCH (21:53)
[2019-06-01] MEDS: ONDANSETRON HCL INJ/PF 4 MG/2 ML SDV IV PRN (21:55)
[2019-06-02 04:32] LABS: ALANINE AMINOTRANSFERASE 14 U/L (9-52); ALBUMIN 3.1 g/dL (3.5-5.0); ALKALINE PHOSPHATASE 126 U/L (38-126); ANION GAP 9 (5-19); ASPARTATE AMINO TRANSFERASE 16 U/L (14-36); BILIRUBIN,DIRECT 0.3 mg/dL (0.0-0.4); BILIRUBIN,TOTAL 0.4 mg/dL (0.2-1.3); BLOOD UREA NITROGEN 51 mg/dL (7-20); CALCIUM 8.7 mg/dL (8.4-10.2); CARBON DIOXIDE 26 mmol/L (22-30); CHLORIDE 104 mmol/L (98-107); GLUCOSE 83 mg/dL (75-110); POTASSIUM 4.2 mmol/L (3.6-5.0); SODIUM 139.4 mmol/L (137-145); TOTAL PROTEIN 6.4 g/dL (6.3-8.2)
[2019-06-02] MEDS: HEPARIN SOD (PORCINE) 5,000 UNIT/ML 1 ML SYRINGE SUBCUT SCH ×3 (05:25→22:10)
[2019-06-02] MEDS ORDERED: DEXTROSE 40% GEL 15 GM TUBE PO PRN ×2 (06:46)
[2019-06-02] MEDS ORDERED: GLUCAGON,HUMAN RECOMB 1 MG INJ IM PRN (06:46)
[2019-06-02] MEDS ORDERED: DEXTROSE 50%-WATER 25 GM/50 ML DISP.SYRIN IV PRN ×2 (06:46)
[2019-06-02] MEDS: INSULIN LISPRO 100 UNIT/ML 3 ML VIAL SUBCUT SCH ×4 (07:49→22:10)
[2019-06-02] MEDS: INSULIN GLARGINE,HUM.REC.ANLOG 1,000 UNIT/10 ML VIAL SUBCUT SCH (08:12)
[2019-06-02] MEDS: BUSPIRONE HCL 10 MG TABLET PO SCH ×2 (09:54→22:10)
[2019-06-02] MEDS: ONDANSETRON HCL INJ/PF 4 MG/2 ML SDV IV PRN (09:54)
[2019-06-02] MEDS: DOCUSATE SODIUM 100 MG CAPSULE PO SCH ×2 (09:54→17:14)
[2019-06-02] MEDS: ASPIRIN 81 MG TABLET, CHEWABLE PO SCH (09:54)
[2019-06-02] MEDS: NIFEDIPINE 30 MG TAB.ER.24 PO SCH ×2 (09:54→22:11)
[2019-06-02] MEDS: LEVOFLOXACIN 500 MG/D5W RTU 500 MG/100 ML RTUPB IV SCH (09:54)
[2019-06-02] MEDS: CALCITRIOL 0.25 MCG CAPSULE PO SCH (09:55)
--- NOTE | 2019-06-02 09:55 | PDOC PROGRESS REPORT ---
Subjective Progress Note for:: 06/02/19 Subjective:: MEGAN CARVALHO is a 78 year old patient with past medical history of CKD stage IV with a base creatinine of around 2.5 in the background of hypertension, type 2 diabetes mellitus, hyperlipidemia, presents with chief complaint of shortness of breath, right-sided neck jaw and chest pain. She says she has been having a cough with minimal expectoration for the last couple of weeks. Has also noticed some shaking chills and also was found to be febrile in the ER. Approximately a week ago, patient started to have abdominal pain and diarrhea for which she visited urgent care and she was given clarithromycin and Flagyl. And has associated nausea and vomiting. Her blood work shows leukocytosis of 16,000, hyponatremia with sodium of 127, hyperglycemia with blood glucose of 416, BUN 54 and creatinine 5.15. Her chest x-ray reported as right basilar airspace disease with moderate pleural effusion. Currently when she is seen she is sitting in bed in no distress. She has no appetite. Currently no nausea or vomiting. No complaints of any chest pains or shortness of breath while she is resting. Labs and medications were reviewed with the patient. 05/27/2019. No acute events overnight. Patient is stating that she is feeling much better than yesterday, still complaining of low appetite, and generalized weakness, denies any fever, chills, nausea, vomiting, diarrhea, constipation or any urinary symptoms. 05/28/2019. Patient complaining of abdominal pain and bloating, has not passed flatus and has not had a bowel movement since admission, complaining of shortness of breath, denies any fever, chills, nausea, chest pain, diarrhea or any urinary symptoms. Patient is now nonoliguric. 05/29/2019. No acute events overnight, status post thoracentesis yesterday, abdominal discomfort has improved, has had one bowel movement yesterday, denies any fever, chills, nausea, vomiting, diarrhea, constipation or any urinary symptoms. HD Cath in place, patient will receive hemodialysis today. Sodium 128, potassium 4.9, bicarb 19, BUN 83, creatinine 6.91. 05/30/2019. No acute events overnight. Patient reporting improvement of her heart shortness of breath and abdominal discomfort. Has had one bowel movement the last 24 hours. Denies any nausea, vomiting, diarrhea or any urinary symptoms. 05/31/2019. No acute events overnight, reporting mild improvement of her symptoms, still dependent on supplemental oxygen and BiPAP overnight. Had one bowel movement yesterday, denies any fever, chills, nausea, vomiting or any urinary symptoms. SBP 677953, T-max 97.4, pulse 80s, RR 1827, SPO2 98% 5 L NC FiO2 32%. Sodium 135.5, potassium 4.5, bicarb 23, creatinine 4.72, BGL 85. Urine output 450. 06/01/2019. No acute events overnight, reporting persistent shortness of breath, dependent on oxygen and BiPAP. Denies any fever, chills, nausea, vomiting, diarrhea, constipation or any urinary symptoms. Sodium 137, potassium 4.6, bicarb 22, BUN 69, creatinine 4.1 SBP 889099, T-max 97.9, pulse 80s, RR 2030, SPO2 96% 5 L NC. 06/02/2019. No acute events overnight, patient complaining of nausea and diffuse abdominal discomfort, p.o. tolerant, had a bowel movement yesterday, denies any fever, chills, diarrhea or constipation. SBP 950293, T-max 98.1, pulse 80s, RR 1824, SPO2 96% FiO2 32%. Urine output 750. Reason For Visit: RIGHT LUNG PNEUMONIA,MIRA ON CKD Physical Exam Vital Signs: Temp Pulse Resp BP Pulse Ox 98.1 F 80 18 154/63 H 96 06/02/19 03:54 06/02/19 03:54 06/02/19 08:05 06/02/19 03:54 06/02/19 08:05 Intake & Output 06/01/19 06/02/19 06/03/19 06:59 06:59 06:59 Intake Total 320 564 Output Total 750 750 Balance -430 -186 Weight 117 kg 115 kg General appearance: PRESENT: no acute distress, morbidly obese, obese, well- developed, well-nourished Head exam: PRESENT: atraumatic, normocephalic Neck exam: ABSENT: carotid bruit, JVD, lymphadenopathy, thyromegaly Respiratory exam: PRESENT: clear to auscultation ofe. ABSENT: rales, rhonchi, wheezes Cardiovascular exam: PRESENT: RRR. ABSENT: diastolic murmur, rubs, systolic murmur Pulses: PRESENT: normal dorsalis pedis pul Neurological exam: PRESENT: alert, awake, oriented to person, oriented to place, oriented to time, oriented to situation, CN II-XII grossly intact. ABSENT: motor sensory deficit Results Laboratory Results: 06/01/19 04:05 06/02/19 03:26 06/02/19 03:26 Sodium 139.4 Potassium 4.2 Chloride 104 Carbon Dioxide 26 Anion Gap 9 BUN 51 H Creatinine 3.02 H Est GFR ( Amer) 18 L Est GFR (Non-Af Amer) 15 L Glucose 83 Calcium 8.7 Total Bilirubin 0.4 AST 16 ALT 14 Alkaline Phosphatase 126 Total Protein 6.4 Albumin 3.1 L 05/28/19 14:06 Chest - Right Side Gram Stain - Final 05/28/19 14:06 Chest - Right Side Body Fluid Culture - Final NO AEROBIC OR ANAEROBIC ORGANISMS RECOVERED 05/25/19 05/25/19 05/25/19 11:50 11:50 19:08 Creatine Kinase 63 CK-MB (CK-2) 1.74 1.78 Troponin I 0.023 0.031 NT-Pro-B Natriuret Pep 05/25/19 05/26/19 05/26/19 19:08 01:14 01:14 Creatine Kinase 59 52 CK-MB (CK-2) 1.89 Troponin I 0.026 NT-Pro-B Natriuret Pep 05/26/19 05/26/19 05/27/19 08:32 08:32 09:28 Creatine Kinase 60 CK-MB (CK-2) 2.30 Troponin I 0.026 NT-Pro-B Natriuret Pep 32913 H 05/30/19 17:36 Creatine Kinase CK-MB (CK-2) 0.75 Troponin I 0.018 NT-Pro-B Natriuret Pep Impressions: Chest CT 05/25/19 14:08 IMPRESSION: Moderate right pleural effusion. Small left pleural effusion. Mild associated lower lobe atelectasis. IMPRESSION: There is some degree of renal atrophy. No acute finding in the abdomen or pelvis. Abdomen/Pelvis CT 05/25/19 14:22 IMPRESSION: Moderate right pleural effusion. Small left pleural effusion. Mild associated lower lobe atelectasis. IMPRESSION: There is some degree of renal atrophy. No acute finding in the abdomen or pelvis. KUB X-Ray 05/28/19 00:00 IMPRESSION: Nonobstructive bowel gas pattern. Persistent small right pleural effusion and bibasilar airspace disease atelectasis versus pneumonia Thoracentesis Ultrasound 05/28/19 08:37 IMPRESSION: SUCCESSFUL RIGHT THORACENTESIS USING ULTRASOUND GUIDANCE. Chest X-Ray 05/29/19 00:00 IMPRESSION: STABLE APPEARANCE. NO PNEUMOTHORAX. Assessment and Plan - Diagnosis (1) Acute and chronic respiratory failure with hypoxia Is this a current diagnosis for this admission?: Yes Plan: No significant changes. Still dependent on BiPAP and supplemental oxygen. Due to underlying pneumonia and pleural effusion and worsening CKD. 06/02/2019. SBP 567747, T-max 98.1, pulse 80s, RR 1824, SPO2 96% FiO2 32%. Urine output 750. 06/01/2019. SBP 449582, T-max 97.9, pulse 80s, RR 2030, SPO2 96% 5 L NC. Urine output 750 05/31/2019. SBP 645833, T-max 97.4, pulse 80s, RR 1827, SPO2 98% 5 L NC FiO2 32%. Urine output 450. 05/30/2019. Status post hemodialysis. 500 cc removed. 05/30/2019: SBP 974115, T-max 98.4, pulse 80s, RR 2025, SPO2 95%, FiO2 32%. Sodium 132.5, potassium 4.8, BUN 64, creatinine 4.8, BGL 229. 05/28/2019 is status post right-sided thoracentesis. 850 mL removed. WBC 753. Pending LDH, protein, culture and Gram stain. 05/29/2019. SBP 297997, T-max 98.1, pulse 80s, RR 1420, SPO2 94% 5 L NC. Sodium 128, potassium 4.9, bicarb 19, BUN 83, creatinine 6.91. 05/28/2019. SBP 920043, T-max 97.8, pulse 80s, RR 2430, SPO2 93% 5 L NC. WBC 9.0, hemoglobin 10.1, platelets 476, sodium 126.7, potassium 4.9, bicarb 18, BUN 76, creatinine 6.83, BGL 201. 05/27/2019. SBP 547327, T-max 98.8, pulse 80s RR 1830, SPO2 9094 %FiO2 32% 5 L. WBC 10.7, hemoglobin 9.9, platelets 429, sodium 125.8, potassium 4.8, bicarb 19, BUN 64, creatinine 6.6, BGL 265 Antibiotics day 7 Levofloxacin day 06/07. DC antibiotics. Continue empiric IV antibiotics, nebs, supplemental oxygen, PRN BiPAP. Cultures negative. (2) Right lung pneumonia Is this a current diagnosis for this admission?: Yes Plan: Community-acquired pneumonia versus parapneumonic effusion. As per #1. (3) MIRA on stage IV CKD Is this a current diagnosis for this admission?: Yes Plan: Stable. Mild improvement of oliguria urine output 750 Prerenal. Hemodialysis on 06/01/2019, 05/29/2019. 06/02/2019. SBP 117190, T-max 98.1, pulse 80s, RR 1824, SPO2 96% FiO2 32%. Urine output 750. Sodium 139, potassium 4.2, bicarb 26, creatinine 3.02, BGL 83. 05/31/2019. SBP 559268, T-max 97.4, pulse 80s, RR 1827, SPO2 98% 5 L NC FiO2 32%. Sodium 135.5, potassium 4.5, bicarb 23, creatinine 4.72, BGL 85. Urine output 4 50. 05/30/2019: SBP 400811, T-max 98.4, pulse 80s, RR 2025, SPO2 95%, FiO2 32%. Sodium 132.5, potassium 4.8, BUN 64, creatinine 4.8, BGL 229. 05/29/2019. SBP 411442, T-max 98.1, pulse 80s, RR 1420, SPO2 94% 5 L NC. Sodium 128, potassium 4.9, bicarb 19, BUN 83, creatinine 6.91. 05/28/2019. SBP 688966, T-max 97.8, pulse 80s, RR 2430, SPO2 93% 5 L NC. I/O 2525/335 balance 2190. WBC 9.0, hemoglobin 10.1, platelets 476, sodium 126.7, potassium 4.9, bicarb 18, BUN 76, creatinine 6.83, BGL 201. 05/27/2019. SBP 306871, T-max 98.8, pulse 80s RR 1830, SPO2 9094 %FiO2 32% 5 L. WBC 10.7, hemoglobin 9.9, platelets 429, sodium 125.8, potassium 4.8, bicarb 19, BUN 64, creatinine 6.6, BGL 265 Strict in and out, hold fluids, monitor volume status and electrolytes replace as needed, avoid nephrotoxic agents. Nephrology following. Recommendations noted. (4) Hypertension Qualifiers: Hypertension type: essential hypertension Qualified Code(s): I10 - Essential (primary) hypertension Is this a current diagnosis for this admission?: Yes Plan: Normotensive. Continue home meds, IV hydralazine PRN. Adjust meds as needed. Patient may benefit from JUDY once renal function is back to baseline. (5) Diabetes mellitus, type II Qualifiers: Diabetes mellitus terminologist insulin use: with shelter use Diabetes mellitus complication status: with hyperglycemia Qualified Code(s): E11.65 - Type 2 diabetes mellitus with hyperglycemia; Z79.4 - intermediate (current) use of insulin Is this a current diagnosis for this admission?: Yes Plan: Insulin requirement consistently going down likely to to low intake and wors ening renal function. We will keep adjusting insulin dosage. Uncontrolled. A1c > 10%. Not a candidate for metformin and sulfonylurea due to underlying CKD. Diabetic diet, sliding scale insulin, long-acting insulin, pre-meal insulin, Accu-Chek, hypoglycemia protocol. Adjust dosage as needed. Outpatient PCP follow-up. (6) Anemia in CKD (chronic kidney disease) Qualifiers: Chronic kidney disease stage: stage 4 (severe) Qualified Code(s): N18.4 - Chronic kidney disease, stage 4 (severe); D63.1 - Anemia in chronic kidney disease Is this a current diagnosis for this admission?: Yes Plan: Normocytic. Denies any external source of bleeding. Most likely due to CKD. Monitor H&H. Patient may benefit from Procrit administration. Will defer to nephrology. Urine panel suggestive of anemia of chronic disease. Ferritin within normal limits. (7) Hyponatremia Is this a current diagnosis for this admission?: Yes Plan: Resovled. Hypovolemic hyponatremia. Likely due to recent GI losses caused by diarrhea. 05/31/2019. Sodium 135.5, potassium 4.5, bicarb 23, creatinine 4.72, BGL 85. Urine output 450. 05/30/2019. Sodium 132.5, potassium 4.8, BUN 64, creatinine 4.8, BGL 229. Monitor for seizures. BMP tomorrow. (8) Diarrhea Qualifiers: Diarrhea type: unspecified type Qualified Code(s): R19.7 - Diarrhea, unspecified Is this a current diagnosis for this admission?: Yes Plan: Resolved. Denies any recent antibiotic abuse. Continue empiric IV antibiotics, monitor electrolytes and replace as needed. C. difficile toxin, stool leukocyte, stool parasite, Gram stain and culture. (9) Morbid obesity with BMI of 45.0-49.9, adult Is this a current diagnosis for this admission?: Yes Plan: Diet and lifestyle modification encouraged. (10) Renal osteodystrophy Is this a current diagnosis for this admission?: Yes Plan: Continue calcitriol. (11) Nausea Is this a current diagnosis for this admission?: Yes Plan: Likely due to uremic symptoms. Continue antiemetics. Supportive measures.
[2019-06-02] MEDS: BISACODYL 5 MG TABEC PO SCH (12:35)
--- NOTE | 2019-06-02 19:50 | PDOC PROGRESS REPORT ---
Subjective Progress Note for:: 06/02/19 Subjective:: Patient was seen laying in her bed. At that time she had her BiPAP on because she was sleeping prior to coming in. She currently only has occasional shortness of breath. She claims that it is much improved since coming into the hospital. She denies chest pain, diarrhea and constipation. She does have some nausea but has had no vomiting. Reason For Visit: RIGHT LUNG PNEUMONIA,MIRA ON CKD Physical Exam Vital Signs: Temp Pulse Resp BP Pulse Ox 97.9 F 82 29 H 168/58 H 97 06/02/19 15:27 06/02/19 19:00 06/02/19 15:27 06/02/19 15:27 06/02/19 15:27 Intake & Output 06/01/19 06/02/19 06/03/19 06:59 06:59 06:59 Intake Total 320 564 290 Output Total 750 750 901 Balance -430 186 -611 Weight 117 kg 115 kg General appearance: PRESENT: no acute distress, well-developed, well-nourished, other - -on bipap Mouth exam: PRESENT: moist, neck supple Neck exam: ABSENT: JVD, tracheal deviation Respiratory exam: PRESENT: crackles, rhonchi. ABSENT: accessory muscle use, clear to auscultation ofe, rales, wheezes Cardiovascular exam: PRESENT: +S1, +S2 GI/Abdominal exam: PRESENT: normal bowel sounds, soft. ABSENT: organomegaly, tenderness Extremities exam: ABSENT: pedal edema, +1 edema, +2 edema Psychiatric exam: PRESENT: appropriate affect, normal mood Skin exam: PRESENT: dry, intact, warm Results Laboratory Results: 06/01/19 04:05 06/02/19 03:26 06/02/19 03:26 Sodium 139.4 Potassium 4.2 Chloride 104 Carbon Dioxide 26 Anion Gap 9 BUN 51 H Creatinine 3.02 H Est GFR ( Amer) 18 L Est GFR (Non-Af Amer) 15 L Glucose 83 Calcium 8.7 Total Bilirubin 0.4 AST 16 ALT 14 Alkaline Phosphatase 126 Total Protein 6.4 Albumin 3.1 L 05/25/19 05/25/19 05/25/19 11:50 11:50 19:08 Creatine Kinase 63 CK-MB (CK-2) 1.74 1.78 Troponin I 0.023 0.031 NT-Pro-B Natriuret Pep 05/25/19 05/26/19 05/26/19 19:08 01:14 01:14 Creatine Kinase 59 52 CK-MB (CK-2) 1.89 Troponin I 0.026 NT-Pro-B Natriuret Pep 05/26/19 05/26/19 05/27/19 08:32 08:32 09:28 Creatine Kinase 60 CK-MB (CK-2) 2.30 Troponin I 0.026 NT-Pro-B Natriuret Pep 93943 H 05/30/19 17:36 Creatine Kinase CK-MB (CK-2) 0.75 Troponin I 0.018 NT-Pro-B Natriuret Pep Impressions: Chest CT 05/25/19 14:08 IMPRESSION: Moderate right pleural effusion. Small left pleural effusion. Mild associated lower lobe atelectasis. IMPRESSION: There is some degree of renal atrophy. No acute finding in the abdomen or pelvis. Abdomen/Pelvis CT 05/25/19 14:22 IMPRESSION: Moderate right pleural effusion. Small left pleural effusion. Mild associated lower lobe atelectasis. IMPRESSION: There is some degree of renal atrophy. No acute finding in the abdomen or pelvis. KUB X-Ray 05/28/19 00:00 IMPRESSION: Nonobstructive bowel gas pattern. Persistent small right pleural effusion and bibasilar airspace disease atelectasis versus pneumonia Thoracentesis Ultrasound 05/28/19 08:37 IMPRESSION: SUCCESSFUL RIGHT THORACENTESIS USING ULTRASOUND GUIDANCE. Chest X-Ray 05/29/19 00:00 IMPRESSION: STABLE APPEARANCE. NO PNEUMOTHORAX. Assessment & Plan - Diagnosis (1) MIRA on stage IV CKD Is this a current diagnosis for this admission?: Yes Plan: Looking at labs and urine output as of right now she is almost to baseline her creatinine. Urine output has increased. We will look to hold dialysis tomorrow. Will continue to monitor with labs (2) Diabetes mellitus, type II Qualifiers: Diabetes mellitus correction insulin use: with correction use Diabetes mellitus complication status: with hyperglycemia Qualified Code(s): E11.65 - Type 2 diabetes mellitus with hyperglycemia; Z79.4 - residential (current) use of insulin Is this a current diagnosis for this admission?: Yes Plan: Controlled (3) Hypertension Qualifiers: Hypertension type: essential hypertension Qualified Code(s): I10 - Essential (primary) hypertension Is this a current diagnosis for this admission?: Yes (4) Hyponatremia Is this a current diagnosis for this admission?: Yes Plan: Resolved (5) Right lower lobe pulmonary infiltrate Plan: Currently off of antibiotics, no fevers or chills - Notes Notes: Patient's case was discussed with Dr. Montalvo
[2019-06-02] MEDS: FAMOTIDINE 20 MG TABLET PO SCH (22:10)
[2019-06-03] MEDS: HEPARIN SOD (PORCINE) 5,000 UNIT/ML 1 ML SYRINGE SUBCUT SCH ×3 (05:13→21:57)
[2019-06-03 06:32] LABS: ALANINE AMINOTRANSFERASE 15 U/L (9-52); ALBUMIN 2.8 g/dL (3.5-5.0); ALKALINE PHOSPHATASE 108 U/L (38-126); ANION GAP 8 (5-19); ASPARTATE AMINO TRANSFERASE 15 U/L (14-36); BILIRUBIN,DIRECT 0.3 mg/dL (0.0-0.4); BILIRUBIN,TOTAL 0.4 mg/dL (0.2-1.3); BLOOD UREA NITROGEN 40 mg/dL (7-20); CALCIUM 8.5 mg/dL (8.4-10.2); CARBON DIOXIDE 28 mmol/L (22-30); CHLORIDE 106 mmol/L (98-107); GLUCOSE 92 mg/dL (75-110); POTASSIUM 4.1 mmol/L (3.6-5.0); SODIUM 141.6 mmol/L (137-145); TOTAL PROTEIN 5.9 g/dL (6.3-8.2)
[2019-06-03] MEDS: INSULIN LISPRO 100 UNIT/ML 3 ML VIAL SUBCUT SCH ×4 (08:27→21:53)
[2019-06-03] MEDS: INSULIN GLARGINE,HUM.REC.ANLOG 1,000 UNIT/10 ML VIAL SUBCUT SCH (08:37)
[2019-06-03] MEDS: BISACODYL 5 MG TABEC PO SCH (09:11)
[2019-06-03] MEDS: BUSPIRONE HCL 10 MG TABLET PO SCH ×2 (09:11→21:57)
[2019-06-03] MEDS: ASPIRIN 81 MG TABLET, CHEWABLE PO SCH (09:12)
[2019-06-03] MEDS: NIFEDIPINE 30 MG TAB.ER.24 PO SCH ×2 (09:12→21:56)
[2019-06-03] MEDS: DOCUSATE SODIUM 100 MG CAPSULE PO SCH ×2 (09:12→17:29)
[2019-06-03] MEDS: CALCITRIOL 0.25 MCG CAPSULE PO SCH (09:13)
--- NOTE | 2019-06-03 10:42 | PDOC PROGRESS REPORT ---
Subjective Progress Note for:: 06/03/19 Subjective:: MEGAN CARVALHO is a 78 year old patient with past medical history of CKD stage IV with a base creatinine of around 2.5 in the background of hypertension, type 2 diabetes mellitus, hyperlipidemia, presents with chief complaint of shortness of breath, right-sided neck jaw and chest pain. She says she has been having a cough with minimal expectoration for the last couple of weeks. Has also noticed some shaking chills and also was found to be febrile in the ER. Approximately a week ago, patient started to have abdominal pain and diarrhea for which she visited urgent care and she was given clarithromycin and Flagyl. And has associated nausea and vomiting. Her blood work shows leukocytosis of 16,000, hyponatremia with sodium of 127, hyperglycemia with blood glucose of 416, BUN 54 and creatinine 5.15. Her chest x-ray reported as right basilar airspace disease with moderate pleural effusion. Currently when she is seen she is sitting in bed in no distress. She has no appetite. Currently no nausea or vomiting. No complaints of any chest pains or shortness of breath while she is resting. Labs and medications were reviewed with the patient. 05/27/2019. No acute events overnight. Patient is stating that she is feeling much better than yesterday, still complaining of low appetite, and generalized weakness, denies any fever, chills, nausea, vomiting, diarrhea, constipation or any urinary symptoms. 05/28/2019. Patient complaining of abdominal pain and bloating, has not passed flatus and has not had a bowel movement since admission, complaining of shortness of breath, denies any fever, chills, nausea, chest pain, diarrhea or any urinary symptoms. Patient is now nonoliguric. 05/29/2019. No acute events overnight, status post thoracentesis yesterday, abdominal discomfort has improved, has had one bowel movement yesterday, denies any fever, chills, nausea, vomiting, diarrhea, constipation or any urinary symptoms. HD Cath in place, patient will receive hemodialysis today. Sodium 128, potassium 4.9, bicarb 19, BUN 83, creatinine 6.91. 05/30/2019. No acute events overnight. Patient reporting improvement of her heart shortness of breath and abdominal discomfort. Has had one bowel movement the last 24 hours. Denies any nausea, vomiting, diarrhea or any urinary symptoms. 05/31/2019. No acute events overnight, reporting mild improvement of her symptoms, still dependent on supplemental oxygen and BiPAP overnight. Had one bowel movement yesterday, denies any fever, chills, nausea, vomiting or any urinary symptoms. SBP 559806, T-max 97.4, pulse 80s, RR 1827, SPO2 98% 5 L NC FiO2 32%. Sodium 135.5, potassium 4.5, bicarb 23, creatinine 4.72, BGL 85. Urine output 450. 06/01/2019. No acute events overnight, reporting persistent shortness of breath, dependent on oxygen and BiPAP. Denies any fever, chills, nausea, vomiting, diarrhea, constipation or any urinary symptoms. Sodium 137, potassium 4.6, bicarb 22, BUN 69, creatinine 4.1 SBP 957276, T-max 97.9, pulse 80s, RR 2030, SPO2 96% 5 L NC. 06/02/2019. No acute events overnight, patient complaining of nausea and diffuse abdominal discomfort, p.o. tolerant, had a bowel movement yesterday, denies any fever, chills, diarrhea or constipation. SBP 073724, T-max 98.1, pulse 80s, RR 1824, SPO2 96% FiO2 32%. Urine output 750. 06/03/2019. No acute events overnight, patient has significant improvement of her respiratory symptoms and feeling much better. Urine output has increased substantially, patient has been complaining of constipation for the last 3 to 4 days and will start on bowel regimen, last night she had a bowel movement which looked dark and reason it was checked for C. difficile which was positive. Patient does not have any diarrhea, denies any fever, chills, nausea, vomiting, diarrhea, constipation or any urinary symptoms. SBP 519744, T-max 97.8, pulse 80s, RR 2025, SPO2 98% FiO2 32%. Urine Output 1801. Sodium 141, potassium 4.1, bicarb 28, BUN 40, creatinine 2.42. Pending placement. Reason For Visit: RIGHT LUNG PNEUMONIA,MIRA ON CKD Physical Exam Vital Signs: Temp Pulse Resp BP Pulse Ox 97.8 F 88 20 174/53 H 98 06/03/19 07:23 06/03/19 07:23 06/03/19 07:23 06/03/19 07:23 06/03/19 07:23 Intake & Output 06/02/19 06/03/19 06/04/19 06:59 06:59 06:59 Intake Total 564 440 Output Total 750 1801 Balance -186 -1361 Weight 115 kg 112.8 kg General appearance: PRESENT: no acute distress, obese, well-developed, well- nourished Head exam: PRESENT: atraumatic, normocephalic Respiratory exam: PRESENT: clear to auscultation ofe. ABSENT: rales, rhonchi, wheezes GI/Abdominal exam: PRESENT: normal bowel sounds, soft. ABSENT: distended, guarding, mass, organolmegaly, rebound, tenderness Extremities exam: PRESENT: full ROM. ABSENT: calf tenderness, clubbing, pedal edema Neurological exam: PRESENT: alert, awake, oriented to person, oriented to place, oriented to time, oriented to situation, CN II-XII grossly intact. ABSENT: motor sensory deficit Results Laboratory Results: 06/01/19 04:05 06/03/19 05:31 06/02/19 06/03/19 22:22 05:31 Sodium 141.6 Potassium 4.1 Chloride 106 Carbon Dioxide 28 Anion Gap 8 BUN 40 H Creatinine 2.42 H Est GFR ( Amer) 23 L Est GFR (Non-Af Amer) 19 L Glucose 92 Calcium 8.5 Total Bilirubin 0.4 AST 15 ALT 15 Alkaline Phosphatase 108 Total Protein 5.9 L Albumin 2.8 L Stool Occult Blood NEGATIVE 05/25/19 05/25/19 05/25/19 11:50 11:50 19:08 Creatine Kinase 63 CK-MB (CK-2) 1.74 1.78 Troponin I 0.023 0.031 NT-Pro-B Natriuret Pep 05/25/19 05/26/19 05/26/19 19:08 01:14 01:14 Creatine Kinase 59 52 CK-MB (CK-2) 1.89 Troponin I 0.026 NT-Pro-B Natriuret Pep 05/26/19 05/26/19 05/27/19 08:32 08:32 09:28 Creatine Kinase 60 CK-MB (CK-2) 2.30 Troponin I 0.026 NT-Pro-B Natriuret Pep 52230 H 05/30/19 17:36 Creatine Kinase CK-MB (CK-2) 0.75 Troponin I 0.018 NT-Pro-B Natriuret Pep Impressions: Chest CT 05/25/19 14:08 IMPRESSION: Moderate right pleural effusion. Small left pleural effusion. Mild associated lower lobe atelectasis. IMPRESSION: There is some degree of renal atrophy. No acute finding in the abdomen or pelvis. Abdomen/Pelvis CT 05/25/19 14:22 IMPRESSION: Moderate right pleural effusion. Small left pleural effusion. Mild associated lower lobe atelectasis. IMPRESSION: There is some degree of renal atrophy. No acute finding in the abdomen or pelvis. KUB X-Ray 05/28/19 00:00 IMPRESSION: Nonobstructive bowel gas pattern. Persistent small right pleural effusion and bibasilar airspace disease atelectasis versus pneumonia Thoracentesis Ultrasound 05/28/19 08:37 IMPRESSION: SUCCESSFUL RIGHT THORACENTESIS USING ULTRASOUND GUIDANCE. Chest X-Ray 05/29/19 00:00 IMPRESSION: STABLE APPEARANCE. NO PNEUMOTHORAX. Assessment and Plan - Diagnosis (1) Acute and chronic respiratory failure with hypoxia Is this a current diagnosis for this admission?: Yes Plan: Moderate improvement. Still dependent on BiPAP and supplemental oxygen. Due to underlying pneumonia and pleural effusion and worsening CKD. 06/03/2019. SBP 050000, T-max 97.8, pulse 80s, RR 2025, SPO2 98% FiO2 32%. Urine Output 1801. 06/02/2019. SBP 508121, T-max 98.1, pulse 80s, RR 1824, SPO2 96% FiO2 32%. Urine output 750. 06/01/2019. SBP 476122, T-max 97.9, pulse 80s, RR 2030, SPO2 96% 5 L NC. Urine output 750 05/31/2019. SBP 775226, T-max 97.4, pulse 80s, RR 1827, SPO2 98% 5 L NC FiO2 32%. Urine output 450. 05/30/2019. Status post hemodialysis. 500 cc removed. 05/30/2019: SBP 869538, T-max 98.4, pulse 80s, RR 2025, SPO2 95%, FiO2 32%. Sodium 132.5, potassium 4.8, BUN 64, creatinine 4.8, BGL 229. 05/28/2019 is status post right-sided thoracentesis. 850 mL removed. WBC 753. Pending LDH, protein, culture and Gram stain. 05/29/2019. SBP 347853, T-max 98.1, pulse 80s, RR 1420, SPO2 94% 5 L NC. Sodium 128, potassium 4.9, bicarb 19, BUN 83, creatinine 6.91. 05/28/2019. SBP 100986, T-max 97.8, pulse 80s, RR 2430, SPO2 93% 5 L NC. WBC 9.0, hemoglobin 10.1, platelets 476, sodium 126.7, potassium 4.9, bicarb 18, BUN 76, creatinine 6.83, BGL 201. 05/27/2019. SBP 855244, T-max 98.8, pulse 80s RR 1830, SPO2 9094 %FiO2 32% 5 L. WBC 10.7, hemoglobin 9.9, platelets 429, sodium 125.8, potassium 4.8, bicarb 19, BUN 64, creatinine 6.6, BGL 265 Antibiotics day 7 Levofloxacin day 06/07. DC antibiotics. Continue nebs, supplemental oxygen, PRN BiPAP. Cultures negative. (2) Right lung pneumonia Is this a current diagnosis for this admission?: Yes Plan: Community-acquired pneumonia versus parapneumonic effusion. As per #1. 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 Patient has been complaining of constipation for the last 3 days was started on bowel regiment and had a bowel movement last night which looked dark and for some reason C. difficile was checked which came back positive. Afebrile, denies any diarrhea, WBC WNL, CMP WNL except for elevated creatinine. Not sure if patient is C. difficile carrier or she is actually infected however she is not symptomatic. Since C. difficile is positive we will start on vancomycin p.o. and monitor. (4) MIRA on stage IV CKD Is this a current diagnosis for this admission?: Yes Plan: Significant improvement. Nonoliguric. Creatinine back to baseline. Urine output 1850. Received hemodialysis on 06/01/2019, 05/29/2019. 06/03/2019. SBP 055753, T-max 97.8, pulse 80s, RR 2025, SPO2 98% FiO2 32%. Urine Output 1801. Sodium 141, potassium 4.1, bicarb 28, BUN 40, creatinine 2.42. 06/02/2019. SBP 891407, T-max 98.1, pulse 80s, RR 1824, SPO2 96% FiO2 32%. Urine output 750. Sodium 139, potassium 4.2, bicarb 26, creatinine 3.02, BGL 83. 05/31/2019. SBP 187634, T-max 97.4, pulse 80s, RR 1827, SPO2 98% 5 L NC FiO2 32%. Sodium 135.5, potassium 4.5, bicarb 23, creatinine 4.72, BGL 85. Urine output 450. 05/30/2019: SBP 059651, T-max 98.4, pulse 80s, RR 2025, SPO2 95%, FiO2 32%. Sodium 132.5, potassium 4.8, BUN 64, creatinine 4.8, BGL 229. 05/29/2019. SBP 361360, T-max 98.1, pulse 80s, RR 1420, SPO2 94% 5 L NC. Sodium 128, potassium 4.9, bicarb 19, BUN 83, creatinine 6.91. 05/28/2019. SBP 909552, T-max 97.8, pulse 80s, RR 2430, SPO2 93% 5 L NC. I/O 2525/335 balance 2190. WBC 9.0, hemoglobin 10.1, platelets 476, sodium 126.7, potassium 4.9, bicarb 18, BUN 76, creatinine 6.83, BGL 201. 05/27/2019. SBP 455681, T-max 98.8, pulse 80s RR 1830, SPO2 9094 %FiO2 32% 5 L. WBC 10.7, hemoglobin 9.9, platelets 429, sodium 125.8, potassium 4.8, bicarb 19, BUN 64, creatinine 6.6, BGL 265 Strict in and out, monitor volume status and electrolytes replace as needed, avoid nephrotoxic agents. Nephrology following. Recommendations noted. (5) Hypertension Qualifiers: Hypertension type: essential hypertension Qualified Code(s): I10 - Essential (primary) hypertension Is this a current diagnosis for this admission?: Yes Plan: Not controlled. Continue nicardipine, and propranolol , IV hydralazine PRN. Adjust meds as needed. Patient may benefit from JUDY once renal function is back to baseline. Note added on propranolol. Even though propranolol is not indicated as first choice for BP patient does have significant essential tremor. Will start on propranolol to see if it will improve her essential tremor as well as BP. If not we will add another medication. 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 We will keep adjusting insulin dosage. Uncontrolled. A1c > 10%. Not a candidate for metformin and sulfonylurea due to underlying CKD. Diabetic diet, sliding scale insulin, long-acting insulin, pre-meal insulin, Accu-Chek, hypoglycemia protocol. Adjust dosage as needed. Outpatient PCP follow-up. (7) Anemia in CKD (chronic kidney disease) Qualifiers: Chronic kidney disease stage: stage 4 (severe) Qualified Code(s): N18.4 - Chronic kidney disease, stage 4 (severe); D63.1 - Anemia in chronic kidney disease Is this a current diagnosis for this admission?: Yes Plan: Normocytic. Denies any external source of bleeding. Most likely due to CKD. Monitor H&H. Patient may benefit from Procrit administration. Will defer to nephrology. Urine panel suggestive of anemia of chronic disease. Ferritin within normal limits. (8) Hyponatremia Is this a current diagnosis for this admission?: Yes Plan: Resovled. Hypovolemic hyponatremia. Likely due to recent GI losses caused by diarrhea. 05/31/2019. Sodium 135.5, potassium 4.5, bicarb 23, creatinine 4.72, BGL 85. Urine output 450. 05/30/2019. Sodium 132.5, potassium 4.8, BUN 64, creatinine 4.8, BGL 229. Monitor for seizures. BMP tomorrow. (9) Diarrhea Qualifiers: Diarrhea type: unspecified type Qualified Code(s): R19.7 - Diarrhea, unspecified Is this a current diagnosis for this admission?: Yes Plan: On admission patient had diarrhea which has resolved since then. Denies any recent antibiotic abuse prior to admission. Stool leukocyte, stool parasite, Gram stain and culture negative. (10) Morbid obesity with BMI of 45.0-49.9, adult Is this a current diagnosis for this admission?: Yes Plan: Diet and lifestyle modification encouraged. (11) Renal osteodystrophy Is this a current diagnosis for this admission?: Yes Plan: Continue calcitriol. (12) Nausea Is this a current diagnosis for this admission?: Yes Plan: Proved. P.o. tolerant. Likely due to azotemia. Continue antiemetics. Supportive measures. (13) Essential tremor Is this a current diagnosis for this admission?: Yes Plan: Moderate bilateral upper extremity. She is unable to eat as a result. Negative for cogwheel rigidity. Will start on propranolol, uptitrate as tolerated. Monitor vitals.
[2019-06-03] MEDS ORDERED: PROPRANOLOL HCL 40 MG TABLET PO SCH (12:00)
[2019-06-03] MEDS: VANCOMYCIN HCL INJ 500 MG VIAL PO SCH ×3 (12:07→23:17)
--- NOTE | 2019-06-03 13:41 | PDOC PROGRESS REPORT ---
Subjective Progress Note for:: 06/03/19 Subjective:: Patient was seen laying in her bed. She was off bipap and currently just on oxygen via NC. Looks to be significantly improved from yesterday. It was found that she had C-diff. Urine output has significantly increased to over 1,800mL. Reason For Visit: RIGHT LUNG PNEUMONIA,MIRA ON CKD Physical Exam Vital Signs: Temp Pulse Resp BP Pulse Ox 97.8 F 89 20 162/55 H 98 06/03/19 11:07 06/03/19 11:07 06/03/19 11:07 06/03/19 11:07 06/03/19 11:07 Intake & Output 06/02/19 06/03/19 06/04/19 06:59 06:59 06:59 Intake Total 564 440 300 Output Total 750 1801 400 Balance -186 -1361 -100 Weight 115 kg 112.8 kg General appearance: PRESENT: no acute distress, well-developed, well-nourished Mouth exam: PRESENT: moist, neck supple Neck exam: ABSENT: JVD, tracheal deviation Respiratory exam: PRESENT: crackles. ABSENT: accessory muscle use, clear to auscultation ofe, rales, rhonchi, wheezes Cardiovascular exam: PRESENT: +S1, +S2 GI/Abdominal exam: PRESENT: normal bowel sounds, soft. ABSENT: organomegaly, tenderness Extremities exam: PRESENT: tenderness. ABSENT: +1 edema, +2 edema Musculoskeletal exam: PRESENT: tenderness. ABSENT: normal inspection - -wrapped up Neurological exam: PRESENT: alert, awake, oriented to person, oriented to place, oriented to time, oriented to situation Psychiatric exam: PRESENT: appropriate affect, normal mood Skin exam: PRESENT: dry, intact, warm Results Laboratory Results: 06/01/19 04:05 06/03/19 05:31 06/02/19 06/03/19 22:22 05:31 Sodium 141.6 Potassium 4.1 Chloride 106 Carbon Dioxide 28 Anion Gap 8 BUN 40 H Creatinine 2.42 H Est GFR ( Amer) 23 L Est GFR (Non-Af Amer) 19 L Glucose 92 Calcium 8.5 Total Bilirubin 0.4 AST 15 ALT 15 Alkaline Phosphatase 108 Total Protein 5.9 L Albumin 2.8 L Stool Occult Blood NEGATIVE 05/25/19 05/25/19 05/25/19 11:50 11:50 19:08 Creatine Kinase 63 CK-MB (CK-2) 1.74 1.78 Troponin I 0.023 0.031 NT-Pro-B Natriuret Pep 05/25/19 05/26/19 05/26/19 19:08 01:14 01:14 Creatine Kinase 59 52 CK-MB (CK-2) 1.89 Troponin I 0.026 NT-Pro-B Natriuret Pep 05/26/19 05/26/19 05/27/19 08:32 08:32 09:28 Creatine Kinase 60 CK-MB (CK-2) 2.30 Troponin I 0.026 NT-Pro-B Natriuret Pep 54675 H 05/30/19 17:36 Creatine Kinase CK-MB (CK-2) 0.75 Troponin I 0.018 NT-Pro-B Natriuret Pep Impressions: Chest CT 05/25/19 14:08 IMPRESSION: Moderate right pleural effusion. Small left pleural effusion. Mild associated lower lobe atelectasis. IMPRESSION: There is some degree of renal atrophy. No acute finding in the abd omen or pelvis. Abdomen/Pelvis CT 05/25/19 14:22 IMPRESSION: Moderate right pleural effusion. Small left pleural effusion. Mild associated lower lobe atelectasis. IMPRESSION: There is some degree of renal atrophy. No acute finding in the abdomen or pelvis. KUB X-Ray 05/28/19 00:00 IMPRESSION: Nonobstructive bowel gas pattern. Persistent small right pleural effusion and bibasilar airspace disease atelectasis versus pneumonia Thoracentesis Ultrasound 05/28/19 08:37 IMPRESSION: SUCCESSFUL RIGHT THORACENTESIS USING ULTRASOUND GUIDANCE. Chest X-Ray 05/29/19 00:00 IMPRESSION: STABLE APPEARANCE. NO PNEUMOTHORAX. Assessment & Plan - Diagnosis (1) MIRA on stage IV CKD Is this a current diagnosis for this admission?: Yes Plan: at baseline, will look to keep her off dialysis and monitor her. 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 Is this a current diagnosis for this admission?: Yes Plan: Controlled lately (3) Hypertension Qualifiers: Hypertension type: essential hypertension Qualified Code(s): I10 - Essential (primary) hypertension Is this a current diagnosis for this admission?: Yes (4) Hyponatremia Is this a current diagnosis for this admission?: Yes Plan: Resolved (5) Right lower lobe pulmonary infiltrate Plan: Currently off of antibiotics, no fevers or chills (6) Anemia in CKD (chronic kidney disease) Qualifiers: Chronic kidney disease stage: stage 4 (severe) Qualified Code(s): N18.4 - Chronic kidney disease, stage 4 (severe); D63.1 - Anemia in chronic kidney dise ase Is this a current diagnosis for this admission?: Yes Plan: currently no indication for procrit with a hemoglobin above 10. - Notes Notes: Patients case was reviewed with Dr. Montalvo.
[2019-06-03] MEDS: FAMOTIDINE 20 MG TABLET PO SCH (21:57)
[2019-06-03] MEDS: PROPRANOLOL HCL 40 MG TABLET PO SCH (21:57)
[2019-06-03] MEDS: HYDRALAZINE HCL INJ/PF 20 MG/1 ML SDV IV PRN (23:21)
[2019-06-04] MEDS: VANCOMYCIN HCL INJ 500 MG VIAL PO SCH ×3 (06:03→17:13)
[2019-06-04] MEDS: HEPARIN SOD (PORCINE) 5,000 UNIT/ML 1 ML SYRINGE SUBCUT SCH ×3 (06:04→22:47)
[2019-06-04 07:28] LABS: ANION GAP 6 (5-19); BLOOD UREA NITROGEN 35 mg/dL (7-20); CALCIUM 8.5 mg/dL (8.4-10.2); CARBON DIOXIDE 27 mmol/L (22-30); CHLORIDE 108 mmol/L (98-107); GLUCOSE 122 mg/dL (75-110); POTASSIUM 4.2 mmol/L (3.6-5.0); SODIUM 140.7 mmol/L (137-145)
[2019-06-04] MEDS: INSULIN LISPRO 100 UNIT/ML 3 ML VIAL SUBCUT SCH ×4 (08:38→22:47)
[2019-06-04] MEDS: NIFEDIPINE 30 MG TAB.ER.24 PO SCH (09:10)
[2019-06-04] MEDS: BUSPIRONE HCL 10 MG TABLET PO SCH ×2 (09:10→22:49)
[2019-06-04] MEDS: TIZANIDINE HCL 4 MG TABLET PO SCH ×3 (09:10→22:47)
[2019-06-04] MEDS: PANTOPRAZOLE SODIUM 40 MG TABLET.DR PO SCH (09:10)
[2019-06-04] MEDS: ASPIRIN 81 MG TABLET, CHEWABLE PO SCH (09:10)
[2019-06-04] MEDS: PROPRANOLOL HCL 40 MG TABLET PO SCH ×2 (09:10→22:46)
[2019-06-04] MEDS: CALCITRIOL 0.25 MCG CAPSULE PO SCH (09:13)
--- NOTE | 2019-06-04 10:02 | PDOC PROGRESS REPORT ---
Subjective Progress Note for:: 06/04/19 Subjective:: Seen the patient today. She complains of feeling tired. She ate her breakfast about 75%. She said her stools are soft and tarry. She is C. difficile positive and is currently on oral vancomycin. Her breathing is much better although she still requires oxygen by nasal cannula. She made about 1150 mL of urine output for the last 24 hours. Hemodialysis was held yesterday and so far she is doing well. Reason For Visit: RIGHT LUNG PNEUMONIA,MIRA ON CKD Physical Exam Vital Signs: Temp Pulse Resp BP Pulse Ox 97.8 F 74 24 H 160/56 H 98 06/04/19 07:11 06/04/19 07:11 06/04/19 07:11 06/04/19 07:11 06/04/19 07:11 Intake & Output 06/03/19 06/04/19 06/05/19 06:59 06:59 06:59 Intake Total 440 522 Output Total 1801 1150 Balance -1361 -628 Weight 112.8 kg 112.7 kg Exam: General appearance: PRESENT: no acute distress, cooperative, well-developed, well-nourished Head exam: PRESENT: atraumatic, normocephalic Eye exam: PRESENT: conjunctiva slightly pale, PERRLA. ABSENT: scleral icterus Neck exam: ABSENT: JVD Respiratory exam: PRESENT: Diminished breath sounds. ABSENT: crackles, rales, rhonchi, unlabored, wheezes Cardiovascular exam: PRESENT: Regular rate rhythm -+S1, +S2. ABSENT: diastolic murmur, systolic murmur GI/Abdominal exam: PRESENT: normal bowel sounds, soft. ABSENT: guarding, mass, tenderness Extremities exam: Trace bilateral lower extremity pitting edema; bilateral leg ulcers Neurological exam: PRESENT: Somnolent but arousable, oriented to person, place and time. Skin exam: PRESENT: dry, warm, Cardiovascular exam: PRESENT: +S1, +S2 GI/Abdominal exam: PRESENT: normal bowel sounds, soft. ABSENT: organomegaly, tenderness Results Laboratory Results: 06/01/19 04:05 06/04/19 07:07 06/04/19 07:07 Sodium 140.7 Potassium 4.2 Chloride 108 H Carbon Dioxide 27 Anion Gap 6 BUN 35 H Creatinine 2.05 H Est GFR ( Amer) 28 L Est GFR (Non-Af Amer) 23 L Glucose 122 H Calcium 8.5 05/25/19 05/25/19 05/25/19 11:50 11:50 19:08 Creatine Kinase 63 CK-MB (CK-2) 1.74 1.78 Troponin I 0.023 0.031 NT-Pro-B Natriuret Pep 05/25/19 05/26/19 05/26/19 19:08 01:14 01:14 Creatine Kinase 59 52 CK-MB (CK-2) 1.89 Troponin I 0.026 NT-Pro-B Natriuret Pep 05/26/19 05/26/19 05/27/19 08:32 08:32 09:28 Creatine Kinase 60 CK-MB (CK-2) 2.30 Troponin I 0.026 NT-Pro-B Natriuret Pep 32768 H 05/30/19 17:36 Creatine Kinase CK-MB (CK-2) 0.75 Troponin I 0.018 NT-Pro-B Natriuret Pep Impressions: Chest CT 05/25/19 14:08 IMPRESSION: Moderate right pleural effusion. Small left pleural effusion. Mild associated lower lobe atelectasis. IMPRESSION: There is some degree of renal atrophy. No acute finding in the abdomen or pelvis. Abdomen/Pelvis CT 05/25/19 14:22 IMPRESSION: Moderate right pleural effusion. Small left pleural effusion. Mild associated lower lobe atelectasis. IMPRESSION: There is some degree of renal atrophy. No acute finding in the abdomen or pelvis. KUB X-Ray 05/28/19 00:00 IMPRESSION: Nonobstructive bowel gas pattern. Persistent small right pleural effusion and bibasilar airspace disease atelectasis versus pneumonia Thoracentesis Ultrasound 05/28/19 08:37 IMPRESSION: SUCCESSFUL RIGHT THORACENTESIS USING ULTRASOUND GUIDANCE. Chest X-Ray 05/29/19 00:00 IMPRESSION: STABLE APPEARANCE. NO PNEUMOTHORAX. Assessment & Plan - Diagnosis (1) MIRA on stage IV CKD Is this a current diagnosis for this admission?: Yes Plan: Currently the patient is nonoliguric. Kidney function continues to improve. Continue to monitor kidney function and most likely will continue to hold dialysis at this point. (2) C. difficile diarrhea Is this a current diagnosis for this admission?: Yes Plan: On oral vancomycin. (3) Anemia in CKD (chronic kidney disease) Qualifiers: Chronic kidney disease stage: stage 4 (severe) Qualified Code(s): N18.4 - Chronic kidney disease, stage 4 (severe); D63.1 - Anemia in chronic kidney d isease Is this a current diagnosis for this admission?: Yes (4) Right lung pneumonia Is this a current diagnosis for this admission?: Yes Plan: Was treated with a course of Levaquin. (5) Hypertension Qualifiers: Hypertension type: essential hypertension Qualified Code(s): I10 - Essential (primary) hypertension Is this a current diagnosis for this admission?: Yes (6) Hyponatremia Is this a current diagnosis for this admission?: Yes Plan: Resolved. Discontinue fluid restriction for now. - Time Time with patient: 15-25 minutes
--- NOTE | 2019-06-04 10:51 | PDOC PROGRESS REPORT ---
Subjective Progress Note for:: 06/04/19 Subjective:: MEGAN CARVALHO is a 78 year old patient with past medical history of CKD stage IV with a base creatinine of around 2.5 in the background of hypertension, type 2 diabetes mellitus, hyperlipidemia, presents with chief complaint of shortness of breath, right-sided neck jaw and chest pain. She says she has been having a cough with minimal expectoration for the last couple of weeks. Has also noticed some shaking chills and also was found to be febrile in the ER. Approximately a week ago, patient started to have abdominal pain and diarrhea for which she visited urgent care and she was given clarithromycin and Flagyl. And has associated nausea and vomiting. Her blood work shows leukocytosis of 16,000, hyponatremia with sodium of 127, hyperglycemia with blood glucose of 416, BUN 54 and creatinine 5.15. Her chest x-ray reported as right basilar airspace disease with moderate pleural effusion. Currently when she is seen she is sitting in bed in no distress. She has no appetite. Currently no nausea or vomiting. No complaints of any chest pains or shortness of breath while she is resting. Labs and medications were reviewed with the patient. 05/27/2019. No acute events overnight. Patient is stating that she is feeling much better than yesterday, still complaining of low appetite, and generalized weakness, denies any fever, chills, nausea, vomiting, diarrhea, constipation or any urinary symptoms. 05/28/2019. Patient complaining of abdominal pain and bloating, has not passed flatus and has not had a bowel movement since admission, complaining of shortness of breath, denies any fever, chills, nausea, chest pain, diarrhea or any urinary symptoms. Patient is now nonoliguric. 05/29/2019. No acute events overnight, status post thoracentesis yesterday, abdominal discomfort has improved, has had one bowel movement yesterday, denies any fever, chills, nausea, vomiting, diarrhea, constipation or any urinary symptoms. HD Cath in place, patient will receive hemodialysis today. Sodium 128, potassium 4.9, bicarb 19, BUN 83, creatinine 6.91. 05/30/2019. No acute events overnight. Patient reporting improvement of her heart shortness of breath and abdominal discomfort. Has had one bowel movement the last 24 hours. Denies any nausea, vomiting, diarrhea or any urinary symptoms. 05/31/2019. No acute events overnight, reporting mild improvement of her symptoms, still dependent on supplemental oxygen and BiPAP overnight. Had one bowel movement yesterday, denies any fever, chills, nausea, vomiting or any urinary symptoms. SBP 063421, T-max 97.4, pulse 80s, RR 1827, SPO2 98% 5 L NC FiO2 32%. Sodium 135.5, potassium 4.5, bicarb 23, creatinine 4.72, BGL 85. Urine output 450. 06/01/2019. No acute events overnight, reporting persistent shortness of breath, dependent on oxygen and BiPAP. Denies any fever, chills, nausea, vomiting, diarrhea, constipation or any urinary symptoms. Sodium 137, potassium 4.6, bicarb 22, BUN 69, creatinine 4.1 SBP 624006, T-max 97.9, pulse 80s, RR 2030, SPO2 96% 5 L NC. 06/02/2019. No acute events overnight, patient complaining of nausea and diffuse abdominal discomfort, p.o. tolerant, had a bowel movement yesterday, denies any fever, chills, diarrhea or constipation. SBP 273291, T-max 98.1, pulse 80s, RR 1824, SPO2 96% FiO2 32%. Urine output 750. 06/03/2019. No acute events overnight, patient has significant improvement of her respiratory symptoms and feeling much better. Urine output has increased substantially, patient has been complaining of constipation for the last 3 to 4 days and will start on bowel regimen, last night she had a bowel movement which looked dark and reason it was checked for C. difficile which was positive. Patient does not have any diarrhea, denies any fever, chills, nausea, vomiting, diarrhea, constipation or any urinary symptoms. SBP 475315, T-max 97.8, pulse 80s, RR 2025, SPO2 98% FiO2 32%. Urine Output 1801. Sodium 141, potassium 4.1, bicarb 28, BUN 40, creatinine 2.42. Pending placement. 06/04/2019. No acute events overnight, patient complaining of bronchospasm and the fact that she has not been able to ambulate much since being in the hospital. Patient is very anxious to start her rehab as soon as possible. Patient is pending placement. Denies any fever, chills, nausea, vomiting, diarrhea. Had one bowel movement last night. SBP 631894, T-max 97.8, pulse 70s, RR 1925, SPO2 98% 5 L FiO2 40% NC. Sodium 140, potassium 4.2, bicarb 27, BUN 35, creatinine 2.05. Reason For Visit: RIGHT LUNG PNEUMONIA,MIRA ON CKD Physical Exam Vital Signs: Temp Pulse Resp BP Pulse Ox 97.8 F 74 24 H 160/56 H 98 06/04/19 07:11 06/04/19 07:11 06/04/19 07:11 06/04/19 07:11 06/04/19 07:11 Intake & Output 06/03/19 06/04/19 06/05/19 06:59 06:59 06:59 Intake Total 440 522 Output Total 1801 1150 Balance -1361 -628 Weight 112.8 kg 112.7 kg General appearance: PRESENT: morbidly obese Head exam: PRESENT: atraumatic, normocephalic Respiratory exam: PRESENT: clear to auscultation ofe. ABSENT: rales, rhonchi, wheezes Cardiovascular exam: PRESENT: RRR. ABSENT: diastolic murmur, rubs, systolic murmur GI/Abdominal exam: PRESENT: normal bowel sounds, soft. ABSENT: distended, guarding, mass, organolmegaly, rebound, tenderness Extremities exam: PRESENT: full ROM. ABSENT: calf tenderness, clubbing, pedal edema Neurological exam: PRESENT: alert, awake, oriented to person, oriented to place, oriented to time, oriented to situation, CN II-XII grossly intact. ABSENT: motor sensory deficit Results Laboratory Results: 06/01/19 04:05 06/04/19 07:07 06/04/19 07:07 Sodium 140.7 Potassium 4.2 Chloride 108 H Carbon Dioxide 27 Anion Gap 6 BUN 35 H Creatinine 2.05 H Est GFR ( Amer) 28 L Est GFR (Non-Af Amer) 23 L Glucose 122 H Calcium 8.5 05/25/19 05/25/19 05/25/19 11:50 11:50 19:08 Creatine Kinase 63 CK-MB (CK-2) 1.74 1.78 Troponin I 0.023 0.031 NT-Pro-B Natriuret Pep 06/24/19 06/25/19 06/25/19 19:08 01:14 01:14 Creatine Kinase 59 52 CK-MB (CK-2) 1.89 Troponin I 0.026 NT-Pro-B Natriuret Pep 05/26/19 05/26/19 05/27/19 08:32 08:32 09:28 Creatine Kinase 60 CK-MB (CK-2) 2.30 Troponin I 0.026 NT-Pro-B Natriuret Pep 93812 H 05/30/19 17:36 Creatine Kinase CK-MB (CK-2) 0.75 Troponin I 0.018 NT-Pro-B Natriuret Pep Impressions: Chest CT 05/25/19 14:08 IMPRESSION: Moderate right pleural effusion. Small left pleural effusion. Mild associated lower lobe atelectasis. IMPRESSION: There is some degree of renal atrophy. No acute finding in the abdomen or pelvis. Abdomen/Pelvis CT 05/25/19 14:22 IMPRESSION: Moderate right pleural effusion. Small left pleural effusion. Mild associated lower lobe atelectasis. IMPRESSION: There is some degree of renal atrophy. No acute finding in the abdomen or pelvis. KUB X-Ray 05/28/19 00:00 IMPRESSION: Nonobstructive bowel gas pattern. Persistent small right pleural effusion and bibasilar airspace disease atelectasis versus pneumonia Thoracentesis Ultrasound 05/28/19 08:37 IMPRESSION: SUCCESSFUL RIGHT THORACENTESIS USING ULTRASOUND GUIDANCE. Chest X-Ray 05/29/19 00:00 IMPRESSION: STABLE APPEARANCE. NO PNEUMOTHORAX. Assessment and Plan - Diagnosis (1) Acute and chronic respiratory failure with hypoxia Is this a current diagnosis for this admission?: Yes Plan: Moderate improvement. Still dependent on BiPAP and supplemental oxygen. Due to underlying pneumonia and pleural effusion and worsening CKD. 06/04/2019. SBP 742239, T-max 97.8, pulse 70s, RR 1925, SPO2 98% 5 L FiO2 40% NC. 06/03/2019. SBP 246383, T-max 97.8, pulse 80s, RR 2025, SPO2 98% FiO2 32%. Urine Output 1801. 06/02/2019. SBP 120442, T-max 98.1, pulse 80s, RR 1824, SPO2 96% FiO2 32%. Urine output 750. 06/01/2019. SBP 436246, T-max 97.9, pulse 80s, RR 2030, SPO2 96% 5 L NC. Urine output 750 05/31/2019. SBP 582443, T-max 97.4, pulse 80s, RR 1827, SPO2 98% 5 L NC FiO2 32%. Urine output 450. 05/30/2019. Status post hemodialysis. 500 cc removed. 05/30/2019: SBP 741294, T-max 98.4, pulse 80s, RR 2025, SPO2 95%, FiO2 32%. Sodium 132.5, potassium 4.8, BUN 64, creatinine 4.8, BGL 229. 05/28/2019 is status post right-sided thoracentesis. 850 mL removed. WBC 753. Pending LDH, protein, culture and Gram stain. 05/29/2019. SBP 766792, T-max 98.1, pulse 80s, RR 1420, SPO2 94% 5 L NC. Sodium 128, potassium 4.9, bicarb 19, BUN 83, creatinine 6.91. 05/28/2019. SBP 516705, T-max 97.8, pulse 80s, RR 2430, SPO2 93% 5 L NC. WBC 9.0, hemoglobin 10.1, platelets 476, sodium 126.7, potassium 4.9, bicarb 18, BUN 76, creatinine 6.83, BGL 201. 05/27/2019. SBP 049507, T-max 98.8, pulse 80s RR 1830, SPO2 9094 %FiO2 32% 5 L. WBC 10.7, hemoglobin 9.9, platelets 429, sodium 125.8, potassium 4.8, bicarb 19, BUN 64, creatinine 6.6, BGL 265 Received 7 days of IV antibiotics. Levofloxacin day 06/07. Antibiotics DC'd on 06/02/2019. Continue nebs, supplemental oxygen, PRN BiPAP. Cultures negative. (2) Right lung pneumonia Is this a current diagnosis for this admission?: Yes Plan: Community-acquired pneumonia versus parapneumonic effusion. As per #1. 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 Patient has been complaining of constipation for the last 3 days was started on bowel regiment and had a bowel movement last night which looked dark and for some reason C. difficile was checked which came back positive. Afebrile, denies any diarrhea, WBC WNL, CMP WNL except for elevated creatinine. Not sure if patient is C. difficile carrier or she is actually infected however she is not symptomatic. Since C. difficile is positive we will start on vancomycin p.o. and monitor. Denies any diarrhea. Day 3 of vancomycin p.o. (4) MIRA on stage IV CKD Is this a current diagnosis for this admission?: Yes Plan: Significant improvement. Nonoliguric. Creatinine back to baseline. Urine output 1150. Received hemodialysis on 06/01/2019, 05/29/2019. 06/04/2019. SBP 281791, T-max 97.8, pulse 70s, RR 1925, SPO2 98% 5 L FiO2 40% NC. Sodium 140, potassium 4.2, bicarb 27, BUN 35, creatinine 2.05. 06/03/2019. SBP 035904, T-max 97.8, pulse 80s, RR 2025, SPO2 98% FiO2 32%. Urine Output 1801. Sodium 141, potassium 4.1, bicarb 28, BUN 40, creatinine 2.42. 06/02/2019. SBP 945639, T-max 98.1, pulse 80s, RR 1824, SPO2 96% FiO2 32%. Urine output 750. Sodium 139, potassium 4.2, bicarb 26, creatinine 3.02, BGL 83. 05/31/2019. SBP 310101, T-max 97.4, pulse 80s, RR 1827, SPO2 98% 5 L NC FiO2 32%. Sodium 135.5, potassium 4.5, bicarb 23, creatinine 4.72, BGL 85. Urine output 450. 05/30/2019: SBP 872827, T-max 98.4, pulse 80s, RR 2025, SPO2 95%, FiO2 32%. Sodium 132.5, potassium 4.8, BUN 64, creatinine 4.8, BGL 229. 05/29/2019. SBP 808766, T-max 98.1, pulse 80s, RR 1420, SPO2 94% 5 L NC. Sodium 128, potassium 4.9, bicarb 19, BUN 83, creatinine 6.91. 05/28/2019. SBP 613450, T-max 97.8, pulse 80s, RR 2430, SPO2 93% 5 L NC. I/O 2525/335 balance 2190. WBC 9.0, hemoglobin 10.1, platelets 476, sodium 126.7, potassium 4.9, bicarb 18, BUN 76, creatinine 6.83, BGL 201. 05/27/2019. SBP 030045, T-max 98.8, pulse 80s RR 1830, SPO2 9094 %FiO2 32% 5 L. WBC 10.7, hemoglobin 9.9, platelets 429, sodium 125.8, potassium 4.8, bicarb 19, BUN 64, creatinine 6.6, BGL 265 Strict in and out, monitor volume status and electrolytes replace as needed, avoid nephrotoxic agents. Nephrology following. Recommendations noted. (5) Hypertension Qualifiers: Hypertension type: essential hypertension Qualified Code(s): I10 - Essential (primary) hypertension Is this a current diagnosis for this admission?: Yes Plan: Not controlled. Switch nicardipine with amlodipine. Amlodipine 5 mg p.o. daily, could be increased as needed. Increase propranolol to 120 twice daily. IV hydralazine PRN. Adjust meds as needed. Patient may benefit from JUDY once renal function is back to baseline. Note added on propranolol. Even though propranolol is not indicated as first choice for BP patient does have significant essential tremor. Will start on propranolol to see if it will improve her essential tremor as well as BP. If not we will add another medication. (6) Diabetes mellitus, type II Qualifiers: Diabetes mellitus fdc insulin use: with director long term care use Diabetes mellitus complication status: with hyperglycemia Qualified Code(s): E11.65 - Type 2 diabetes mellitus with hyperglycemia; Z79.4 - half-way (current) use of insulin Is this a current diagnosis for this admission?: Yes Plan: Insulin requirement consistently going down likely to to low intake and worsening renal function. We will keep adjusting insulin dosage. Uncontrolled. A1c > 10%. Not a candidate for metformin and sulfonylurea due to underlying CKD. Diabetic diet, sliding scale insulin, long-acting insulin, pre-meal insulin, Accu-Chek, hypoglycemia protocol. Adjust dosage as needed. Outpatient PCP follow-up. (7) Anemia in CKD (chronic kidney disease) Qualifiers: Chronic kidney disease stage: stage 4 (severe) Qualified Code(s): N18.4 - Chronic kidney disease, stage 4 (severe); D63.1 - Anemia in chronic kidney disease Is this a current diagnosis for this admission?: Yes Plan: Normocytic. Denies any external source of bleeding. Most likely due to CKD. Monitor H&H. No Procrit needed at this time as per nephrology. Urine panel suggestive of anemia of chronic disease. Ferritin within normal limits. (8) Hyponatremia Is this a current diagnosis for this admission?: Yes Plan: Resovled. Hypovolemic hyponatremia. Likely due to recent GI losses caused by diarrhea. 05/31/2019. Sodium 135.5, potassium 4.5, bicarb 23, creatinine 4.72, BGL 85. Urine output 450. 05/30/2019. Sodium 132.5, potassium 4.8, BUN 64, creatinine 4.8, BGL 229. Monitor for seizures. BMP tomorrow. (9) Diarrhea Qualifiers: Diarrhea type: unspecified type Qualified Code(s): R19.7 - Diarrhea, unspecified Is this a current diagnosis for this admission?: Yes Plan: On admission patient had diarrhea which has resolved since then. Denies any recent antibiotic abuse prior to admission. Stool leukocyte, stool parasite, Gram stain and culture negative. (10) Morbid obesity with BMI of 45.0-49.9, adult Is this a current diagnosis for this admission?: Yes Plan: Diet and lifestyle modification encouraged. (11) Renal osteodystrophy Is this a current diagnosis for this admission?: Yes Plan: Continue calcitriol. (12) Nausea Is this a current diagnosis for this admission?: Yes Plan: Improved. P.o. tolerant. Likely due to azotemia. Continue antiemetics. Supportive measures. (13) Essential tremor Is this a current diagnosis for this admission?: Yes Plan: Significant improvement since being started on propranolol p.o. She had moderate bilateral upper extremity. She is unable to eat as a result. Negative for cogwheel rigidity. Continue propranolol p.o. Uptitrate as tolerated guided by vitals.
[2019-06-04] MEDS: DOCUSATE SODIUM 100 MG CAPSULE PO SCH ×2 (12:54→17:13)
[2019-06-04] MEDS: AMLODIPINE BESYLATE 5 MG TABLET PO SCH (13:18)
[2019-06-04] MEDS: HYDRALAZINE HCL INJ/PF 20 MG/1 ML SDV IV PRN (13:18)
[2019-06-04] MEDS: INSULIN GLARGINE,HUM.REC.ANLOG 1,000 UNIT/10 ML VIAL SUBCUT SCH (13:21)
[2019-06-04] MEDS ORDERED: INSULIN GLARGINE,HUM.REC.ANLOG 1,000 UNIT/10 ML VIAL SUBCUT ONE (13:30)
[2019-06-05] MEDS: VANCOMYCIN HCL INJ 500 MG VIAL PO SCH ×5 (00:15→23:38)
[2019-06-05] MEDS: HYDRALAZINE HCL INJ/PF 20 MG/1 ML SDV IV PRN ×2 (01:00→17:14)
[2019-06-05] MEDS: HEPARIN SOD (PORCINE) 5,000 UNIT/ML 1 ML SYRINGE SUBCUT SCH ×3 (05:24→22:21)
[2019-06-05] MEDS: PANTOPRAZOLE SODIUM 40 MG TABLET.DR PO SCH (05:25)
[2019-06-05] MEDS: TIZANIDINE HCL 4 MG TABLET PO SCH ×3 (05:25→22:20)
[2019-06-05 05:37] LABS: ABSOLUTE EOSINOPHILS # (AUTO) 0.3 10^3/uL (0.0-0.6); ABSOLUTE LYMPHOCYTES (AUTO) 1.6 10^3/uL (0.5-4.7); ABSOLUTE MONOCYTES (AUTO) 0.6 10^3/uL (0.1-1.4); ABSOLUTE NEUT (AUTO) 2.2 10^3/uL (1.7-8.2); BASOPHILS % (AUTO) 0.4 % (0-2); EOSINOPHILS % (AUTO) 5.7 % (0-6); HEMATOCRIT 35.9 % (36.0-47.0); HEMOGLOBIN 11.7 g/dL (12.0-15.5); LYMPHOCYTES % (AUTO) 33.8 % (13-45); MEAN CORPUSCULAR HEMOGLOBIN 26.8 pg (27.0-33.4); MEAN CORPUSCULAR HGB CONC 32.7 g/dL (32.0-36.0); MEAN CORPUSCULAR VOLUME 82 fl (80-97); MONOCYTES % (AUTO) 12.5 % (3-13); PLATELET COUNT 281 10^3/uL (150-450); RED BLOOD COUNT 4.39 10^6/uL (3.72-5.28); RED CELL DISTRIBUTION WIDTH 14.2 % (11.5-14.0); SEGMENTED NEUTROPHILS % (AUTO) 47.6 % (42-78); TOTAL CELLS COUNTED % (AUTO) 100 %; WHITE BLOOD COUNT 4.6 10^3/uL (4.0-10.5)
[2019-06-05 05:55] LABS: ANION GAP 6 (5-19); BLOOD UREA NITROGEN 31 mg/dL (7-20); CALCIUM 8.1 mg/dL (8.4-10.2); CARBON DIOXIDE 27 mmol/L (22-30); CHLORIDE 107 mmol/L (98-107); GLUCOSE 117 mg/dL (75-110); POTASSIUM 4.3 mmol/L (3.6-5.0); SODIUM 140.4 mmol/L (137-145)
[2019-06-05] MEDS: INSULIN LISPRO 100 UNIT/ML 3 ML VIAL SUBCUT SCH ×4 (08:39→22:20)
[2019-06-05] MEDS: INSULIN GLARGINE,HUM.REC.ANLOG 1,000 UNIT/10 ML VIAL SUBCUT SCH (08:39)
[2019-06-05] MEDS: CALCITRIOL 0.25 MCG CAPSULE PO SCH (09:46)
[2019-06-05] MEDS: AMLODIPINE BESYLATE 5 MG TABLET PO SCH (09:46)
[2019-06-05] MEDS: PROPRANOLOL HCL 40 MG TABLET PO SCH ×2 (09:46→22:20)
[2019-06-05] MEDS: ASPIRIN 81 MG TABLET, CHEWABLE PO SCH (09:46)
[2019-06-05] MEDS: DOCUSATE SODIUM 100 MG CAPSULE PO SCH ×2 (09:48→18:16)
[2019-06-05] MEDS: BUSPIRONE HCL 10 MG TABLET PO SCH ×2 (09:48→22:20)
--- NOTE | 2019-06-05 11:22 | PDOC PROGRESS REPORT ---
Subjective Progress Note for:: 06/05/19 Subjective:: Spoke with patient and she is feeling better. She continues to be on oxygen. Denies any chest pain or shortness of breath. Her Tinoco was taken out yesterday and she has been voiding. Reason For Visit: RIGHT LUNG PNEUMONIA,MIRA ON CKD Physical Exam Vital Signs: Temp Pulse Resp BP Pulse Ox 97.8 F 66 22 H 156/68 H 97 06/05/19 08:00 06/05/19 08:00 06/05/19 08:00 06/05/19 08:00 06/05/19 08:00 Intake & Output 06/04/19 06/05/19 06/06/19 06:59 06:59 06:59 Intake Total 522 666 Output Total 1150 600 Balance -628 66 Weight 248 lb 7.375 oz 246 lb 11.156 oz General appearance: PRESENT: no acute distress Head exam: PRESENT: atraumatic, normocephalic Eye exam: PRESENT: EOMI. ABSENT: scleral icterus Mouth exam: PRESENT: moist, tongue midline Respiratory exam: PRESENT: symmetrical, other - Slightly decreased breath sounds bilaterally in both bases Cardiovascular exam: PRESENT: +S1, +S2 GI/Abdominal exam: PRESENT: normal bowel sounds, soft Neurological exam: PRESENT: CN II-XII grossly intact Results Laboratory Results: 06/05/19 04:17 06/05/19 04:17 06/05/19 06/05/19 04:17 04:17 WBC 4.6 RBC 4.39 Hgb 11.7 L Hct 35.9 L MCV 82 MCH 26.8 L MCHC 32.7 RDW 14.2 H Plt Count 281 Seg Neutrophils % 47.6 Lymphocytes % 33.8 Monocytes % 12.5 Eosinophils % 5.7 Basophils % 0.4 Absolute Neutrophils 2.2 Absolute Lymphocytes 1.6 Absolute Monocytes 0.6 Absolute Eosinophils 0.3 Absolute Basophils 0.0 Sodium 140.4 Potassium 4.3 Chloride 107 Carbon Dioxide 27 Anion Gap 6 BUN 31 H Creatinine 1.91 H Est GFR ( Amer) 31 L Est GFR (Non-Af Amer) 25 L Glucose 117 H Calcium 8.1 L 06/02/19 22:22 Stool - Stool - Final 06/02/19 22:22 Stool - Stool Stool Culture - Final NO SALMONELLA, SHIGELLA, CAMPYLOBACTER, OR E.COLI 0157 RECOVERED. NEGATIVE FOR SHIGA TOXINS 1&2. 05/25/19 05/25/19 05/25/19 11:50 11:50 19:08 Creatine Kinase 63 CK-MB (CK-2) 1.74 1.78 Troponin I 0.023 0.031 NT-Pro-B Natriuret Pep 05/25/19 05/26/19 05/26/19 19:08 01:14 01:14 Creatine Kinase 59 52 CK-MB (CK-2) 1.89 Troponin I 0.026 NT-Pro-B Natriuret Pep 05/26/19 05/26/19 05/27/19 08:32 08:32 09:28 Creatine Kinase 60 CK-MB (CK-2) 2.30 Troponin I 0.026 NT-Pro-B Natriuret Pep 03094 H 05/30/19 17:36 Creatine Kinase CK-MB (CK-2) 0.75 Troponin I 0.018 NT-Pro-B Natriuret Pep Impressions: Chest CT 05/25/19 14:08 IMPRESSION: Moderate right pleural effusion. Small left pleural effusion. Mild associated lower lobe atelectasis. IMPRESSION: There is some degree of renal atrophy. No acute finding in the abdomen or pelvis. Abdomen/Pelvis CT 05/25/19 14:22 IMPRESSION: Moderate right pleural effusion. Small left pleural effusion. Mild associated lower lobe atelectasis. IMPRESSION: There is some degree of renal atrophy. No acute finding in the abdomen or pelvis. KUB X-Ray 05/28/19 00:00 IMPRESSION: Nonobstructive bowel gas pattern. Persistent small right pleural effusion and bibasilar airspace disease atelectasis versus pneumonia Thoracentesis Ultrasound 05/28/19 08:37 IMPRESSION: SUCCESSFUL RIGHT THORACENTESIS USING ULTRASOUND GUIDANCE. Chest X-Ray 05/29/19 00:00 IMPRESSION: STABLE APPEARANCE. NO PNEUMOTHORAX. Assessment and Plan - Diagnosis (1) MIRA on stage IV CKD Is this a current diagnosis for this admission?: Yes (2) Acute and chronic respiratory failure with hypoxia Is this a current diagnosis for this admission?: Yes (3) C. difficile diarrhea Is this a current diagnosis for this admission?: Yes (4) Dehydration Is this a current diagnosis for this admission?: Yes (5) Diabetes mellitus, type II Qualifiers: Diabetes mellitus group home insulin use: with group home use Diabetes mellitus complication status: with hyperglycemia Qualified Code(s): E11.65 - Type 2 diabetes mellitus with hyperglycemia; Z79.4 - manager intermediate (current) use of insulin Is this a current diagnosis for this admission?: Yes (6) Right lung pneumonia Is this a current diagnosis for this admission?: Yes - Plan Summary Plan Summary: Acute respiratory failure-continue with supplemental oxygen. Likely secondary to pneumonia and questionable pleural effusion. Right-sided pneumonia-completed IV antibiotics and seems to be have cleared- continue with bronchial hygiene C. difficile-continue with oral vancomycin, day 4 Acute on chronic kidney disease-had to receive hemodialysis emergently twice and currently not on dialysis. Nephrology is consulted and I appreciate their assistance. Continue to avoid nephrotoxic agents [id number] greater than 10. Continue with sliding scale and Lantus 12 units
[2019-06-05] MEDS: NITROGLYCERIN 0.4 MG/TAB 25 TAB/BOTTLE SL PRN (11:52)
--- NOTE | 2019-06-05 12:07 | PDOC PROGRESS REPORT ---
Subjective Progress Note for:: 06/05/19 Subjective:: When I entered the room and asked the patient how she is doing she told me "miserable in bitchy". She is complaining about the bed causing back pain. She tells me that she cannot control her stool in her urine and does not know when she is going to go. Her blood pressure is still elevated. Always talking to her she tells me that she is having some chest discomfort described as heaviness but not really pain. So I immediately tell the nurse because she has a n itroglycerin sublingual on board to get give it to her and to inform the hospitalist about this new onset chest discomfort for further management by the hospitalist. Reason For Visit: RIGHT LUNG PNEUMONIA,MIRA ON CKD Physical Exam Vital Signs: Temp Pulse Resp BP Pulse Ox 97.8 F 66 22 H 156/68 H 97 06/05/19 08:00 06/05/19 08:00 06/05/19 08:00 06/05/19 08:00 06/05/19 08:00 Intake & Output 06/04/19 06/05/19 06/06/19 06:59 06:59 06:59 Intake Total 522 666 Output Total 1150 600 Balance -628 66 Weight 112.7 kg 111.9 kg Exam: General appearance: PRESENT: no acute distress, cooperative, well-developed, well-nourished Head exam: PRESENT: atraumatic, normocephalic Eye exam: PRESENT: conjunctiva pale, PERRLA. ABSENT: scleral icterus Neck exam: ABSENT: JVD Respiratory exam: PRESENT: Diminished breath sounds. ABSENT: crackles, rales, rhonchi, unlabored, wheezes Cardiovascular exam: PRESENT: Regular rate rhythm -+S1, +S2. ABSENT: diastolic murmur, systolic murmur GI/Abdominal exam: PRESENT: normal bowel sounds, soft. ABSENT: guarding, mass, tenderness Extremities exam: Trace lower extremity edema Neurological exam: PRESENT: alert, awake, oriented to person, place and time. Skin exam: PRESENT: dry, warm, Cardiovascular exam: PRESENT: +S1, +S2 GI/Abdominal exam: PRESENT: normal bowel sounds, soft. ABSENT: organomegaly, tenderness Results Laboratory Results: 06/05/19 04:17 06/05/19 04:17 06/05/19 06/05/19 04:17 04:17 WBC 4.6 RBC 4.39 Hgb 11.7 L Hct 35.9 L MCV 82 MCH 26.8 L MCHC 32.7 RDW 14.2 H Plt Count 281 Seg Neutrophils % 47.6 Lymphocytes % 33.8 Monocytes % 12.5 Eosinophils % 5.7 Basophils % 0.4 Absolute Neutrophils 2.2 Absolute Lymphocytes 1.6 Absolute Monocytes 0.6 Absolute Eosinophils 0.3 Absolute Basophils 0.0 Sodium 140.4 Potassium 4.3 Chloride 107 Carbon Dioxide 27 Anion Gap 6 BUN 31 H Creatinine 1.91 H Est GFR ( Amer) 31 L Est GFR (Non-Af Amer) 25 L Glucose 117 H Calcium 8.1 L 06/02/19 22:22 Stool - Stool - Final 06/02/19 22:22 Stool - Stool Stool Culture - Final NO SALMONELLA, SHIGELLA, CAMPYLOBACTER, OR E.COLI 0157 RECOVERED. NEGATIVE FOR SHIGA TOXINS 1&2. 05/25/19 05/25/19 05/25/19 11:50 11:50 19:08 Creatine Kinase 63 CK-MB (CK-2) 1.74 1.78 Troponin I 0.023 0.031 NT-Pro-B Natriuret Pep 05/25/19 05/26/19 05/26/19 19:08 01:14 01:14 Creatine Kinase 59 52 CK-MB (CK-2) 1.89 Troponin I 0.026 NT-Pro-B Natriuret Pep 05/26/19 05/26/19 05/27/19 08:32 08:32 09:28 Creatine Kinase 60 CK-MB (CK-2) 2.30 Troponin I 0.026 NT-Pro-B Natriuret Pep [id number] H 05/30/19 17:36 Creatine Kinase CK-MB (CK-2) 0.75 Troponin I 0.018 NT-Pro-B Natriuret Pep Impressions: Chest CT 05/25/19 14:08 IMPRESSION: Moderate right pleural effusion. Small left pleural effusion. Mild associated lower lobe atelectasis. IMPRESSION: There is some degree of renal atrophy. No acute finding in the abdomen or pelvis. Abdomen/Pelvis CT 05/25/19 14:22 IMPRESSION: Moderate right pleural effusion. Small left pleural effusion. Mild associated lower lobe atelectasis. IMPRESSION: There is some degree of renal atrophy. No acute finding in the abdomen or pelvis. KUB X-Ray 05/28/19 00:00 IMPRESSION: Nonobstructive bowel gas pattern. Persistent small right pleural effusion and bibasilar airspace disease atelectasis versus pneumonia Thoracentesis Ultrasound 05/28/19 08:37 IMPRESSION: SUCCESSFUL RIGHT THORACENTESIS USING ULTRASOUND GUIDANCE. Chest X-Ray 05/29/19 00:00 IMPRESSION: STABLE APPEARANCE. NO PNEUMOTHORAX. Assessment & Plan - Diagnosis (1) MIRA on stage IV CKD Is this a current diagnosis for this admission?: Yes Plan: Currently the patient is nonoliguric. Kidney function continues to improve. Continue to monitor kidney function and most likely will continue to hold dialysis at this point. Since the patient's kidney function is improving continuously every day I do not think the patient will need any further renal replacement therapy moving forward. (2) C. difficile diarrhea Is this a current diagnosis for this admission?: Yes Plan: On oral vancomycin. (3) Anemia in CKD (chronic kidney disease) Qualifiers: Chronic kidney disease stage: stage 4 (severe) Qualified Code(s): N18.4 - Chronic kidney disease, stage 4 (severe); D63.1 - Anemia in chronic kidney disease Is this a current diagnosis for this admission?: Yes (4) Right lung pneumonia Is this a current diagnosis for this admission?: Yes Plan: Was treated with a course of Levaquin. (5) Hypertension Qualifiers: Hypertension type: essential hypertension Qualified Code(s): I10 - Essential (primary) hypertension Is this a current diagnosis for this admission?: Yes Plan: Her nifedipine was switched to amlodipine by the hospitalist service. Given the dose of the nifedipine I think the patient needs to be on amlodipine 10 mg daily. (6) Hyponatremia Is this a current diagnosis for this admission?: Yes Plan: Resolved. Discontinue fluid restriction for now. (7) Chest pain Is this a current diagnosis for this admission?: Yes Plan: Advised the nurse to give the patient nitroglycerin sublingual right now and to inform the hospitalist service for further management. - Time Time with patient: 15-25 minutes
[2019-06-05] MEDS ORDERED: AMLODIPINE BESYLATE 5 MG TABLET PO ONE (13:00)
--- NOTE | 2019-06-05 13:59 | EKG REPORT ---
SEVERITY:- ABNORMAL ECG - SINUS RHYTHM RBBB AND LAFB : Confirmed by: Shon Carrasco 05-Jun-2019 13:59:16
[2019-06-05] MEDS: OXYCODONE HCL IR 5 MG TABLET PO PRN (17:00)
[2019-06-05] MEDS: ONDANSETRON HCL INJ/PF 4 MG/2 ML SDV IV PRN (19:44)
[2019-06-06] MEDS: TIZANIDINE HCL 4 MG TABLET PO SCH ×3 (05:04→21:31)
[2019-06-06] MEDS: PANTOPRAZOLE SODIUM 40 MG TABLET.DR PO SCH (05:04)
[2019-06-06] MEDS: HEPARIN SOD (PORCINE) 5,000 UNIT/ML 1 ML SYRINGE SUBCUT SCH ×3 (05:05→21:32)
[2019-06-06] MEDS: VANCOMYCIN HCL INJ 500 MG VIAL PO SCH ×4 (05:08→23:52)
[2019-06-06] MEDS: INSULIN LISPRO 100 UNIT/ML 3 ML VIAL SUBCUT SCH ×4 (09:25→21:32)
[2019-06-06] MEDS: PROPRANOLOL HCL 40 MG TABLET PO SCH ×2 (09:26→21:31)
[2019-06-06] MEDS: ASPIRIN 81 MG TABLET, CHEWABLE PO SCH (09:26)
[2019-06-06] MEDS: LISINOPRIL 5 MG TABLET PO SCH (09:27)
[2019-06-06] MEDS: CALCITRIOL 0.25 MCG CAPSULE PO SCH (09:27)
[2019-06-06] MEDS: AMLODIPINE BESYLATE 5 MG TABLET PO SCH (09:28)
[2019-06-06] MEDS: INSULIN GLARGINE,HUM.REC.ANLOG 1,000 UNIT/10 ML VIAL SUBCUT SCH (09:28)
[2019-06-06] MEDS: BUSPIRONE HCL 10 MG TABLET PO SCH ×2 (09:28→21:31)
[2019-06-06] MEDS: DOCUSATE SODIUM 100 MG CAPSULE PO SCH ×2 (10:01→19:07)
--- NOTE | 2019-06-06 12:13 | PDOC PROGRESS REPORT ---
Subjective Progress Note for:: 06/06/19 Subjective:: Spoke with patient this morning. She did have an episode of chest pain yesterday and had received nitro. Spoke to her more about her chest pain and she states that it was on the left side of her chest radiating to the right side. States that it lasted not much more than 30 seconds and had resolved on its own. She did get 1 dose of nitro but she is unable to tell me if that is what resulted her not. States that she still has some discomfort in her chest but really not pain. Her nurse in the room with me Reason For Visit: RIGHT LUNG PNEUMONIA,MIRA ON CKD Physical Exam Vital Signs: Temp Pulse Resp BP Pulse Ox 97.2 F 74 20 168/47 H 96 06/06/19 07:42 06/06/19 07:42 06/06/19 07:42 06/06/19 07:42 06/06/19 07:42 Intake & Output 06/05/19 06/06/19 06/07/19 06:59 06:59 06:59 Intake Total 666 921 Output Total 600 Balance 66 921 Weight 246 lb 11.156 oz 248 lb 10.903 oz General appearance: PRESENT: no acute distress Head exam: PRESENT: atraumatic, normocephalic Eye exam: PRESENT: EOMI. ABSENT: scleral icterus Ear exam: PRESENT: normal external ear exam Mouth exam: PRESENT: moist, tongue midline Respiratory exam: PRESENT: clear to auscultation ofe, symmetrical Cardiovascular exam: PRESENT: +S1, +S2 GI/Abdominal exam: PRESENT: normal bowel sounds, soft. ABSENT: tenderness Extremities exam: ABSENT: pedal edema Neurological exam: PRESENT: alert, awake, oriented to person, oriented to place, CN II-XII grossly intact Skin exam: PRESENT: dry, warm Results Laboratory Results: 06/05/19 04:17 06/05/19 04:17 06/02/19 22:22 Stool - Stool - Final 06/02/19 22:22 Stool - Stool Stool Culture - Final NO SALMONELLA, SHIGELLA, CAMPYLOBACTER, OR E.COLI 0157 RECOVERED. NEGATIVE FOR SHIGA TOXINS 1&2. 05/25/19 05/25/19 05/25/19 11:50 11:50 19:08 Creatine Kinase 63 CK-MB (CK-2) 1.74 1.78 Troponin I 0.023 0.031 NT-Pro-B Natriuret Pep 05/25/19 05/26/19 05/26/19 19:08 01:14 01:14 Creatine Kinase 59 52 CK-MB (CK-2) 1.89 Troponin I 0.026 NT-Pro-B Natriuret Pep 05/26/19 05/26/19 05/27/19 08:32 08:32 09:28 Creatine Kinase 60 CK-MB (CK-2) 2.30 Troponin I 0.026 NT-Pro-B Natriuret Pep 75671 H 05/30/19 06/05/19 17:36 12:20 Creatine Kinase CK-MB (CK-2) 0.75 Troponin I 0.018 0.015 NT-Pro-B Natriuret Pep Impressions: Chest CT 05/25/19 14:08 IMPRESSION: Moderate right pleural effusion. Small left pleural effusion. Mild associated lower lobe atelectasis. IMPRESSION: There is some degree of renal atrophy. No acute finding in the abdomen or pelvis. Abdomen/Pelvis CT 05/25/19 14:22 IMPRESSION: Moderate right pleural effusion. Small left pleural effusion. Mild associated lower lobe atelectasis. IMPRESSION: There is some degree of renal atrophy. No acute finding in the abdomen or pelvis. KUB X-Ray 05/28/19 00:00 IMPRESSION: Nonobstructive bowel gas pattern. Persistent small right pleural effusion and bibasilar airspace disease atelectasis versus pneumonia Thoracentesis Ultrasound 05/28/19 08:37 IMPRESSION: SUCCESSFUL RIGHT THORACENTESIS USING ULTRASOUND GUIDANCE. Chest X-Ray 05/29/19 00:00 IMPRESSION: STABLE APPEARANCE. NO PNEUMOTHORAX. Assessment and Plan - Diagnosis (1) MIRA on stage IV CKD Is this a current diagnosis for this admission?: Yes (2) Acute and chronic respiratory failure with hypoxia Is this a current diagnosis for this admission?: Yes (3) C. difficile diarrhea Is this a current diagnosis for this admission?: Yes (4) Dehydration Is this a current diagnosis for this admission?: Yes (5) Diabetes mellitus, type II Qualifiers: Diabetes mellitus terminal carman insulin use: with assisted use Diabetes mellitus complication status: with hyperglycemia Qualified Code(s): E11.65 - Type 2 diabetes mellitus with hyperglycemia; Z79.4 - terminal carman (current) use of insulin Is this a current diagnosis for this admission?: Yes (6) Right lung pneumonia Is this a current diagnosis for this admission?: Yes - Plan Summary Plan Summary: Acute respiratory failure-seems to be doing okay-continue with supplemental oxygen. Likely secondary to pneumonia and questionable pleural effusion. Right-sided pneumonia-she did have an episode of left-sided chest pain yesterday and had nitro for it. She no longer has that pain anymore. Could have been due to her pneumonia that still resolving. She completed IV antibiotics -continue with bronchial hygiene Hypertension-blood pressure seems to be stable higher than normal. Systolic blood pressure greater than 160 at times. Yesterday did restart her lisinopril since her creatinine function is much better now. I also increased her Norvasc to 10 mg. I see that she has Lasix on her home medications so I will restart that today and 20 mg daily. C. difficile-continue with oral vancomycin, day 5 Acute on chronic kidney disease-had to receive hemodialysis emergently twice and currently not on dialysis. Nephrology is consulted and I appreciate their lizzy tance. Continue to avoid nephrotoxic agents [id number] greater than 10. Continue with sliding scale and Lantus 12 units Disposition-she is pending placement to her rehab facility which may not happen until Saturday.
[2019-06-06] MEDS: FUROSEMIDE 20 MG TABLET PO SCH (12:36)
[2019-06-06] MEDS: ONDANSETRON HCL INJ/PF 4 MG/2 ML SDV IV PRN (17:56)
[2019-06-07] MEDS: OXYCODONE HCL IR 5 MG TABLET PO PRN (03:23)
[2019-06-07] MEDS: HYDRALAZINE HCL INJ/PF 20 MG/1 ML SDV IV PRN (05:14)
[2019-06-07] MEDS: PANTOPRAZOLE SODIUM 40 MG TABLET.DR PO SCH (05:15)
[2019-06-07] MEDS: VANCOMYCIN HCL INJ 500 MG VIAL PO SCH ×4 (05:15→23:20)
[2019-06-07] MEDS: HEPARIN SOD (PORCINE) 5,000 UNIT/ML 1 ML SYRINGE SUBCUT SCH ×3 (05:16→21:53)
[2019-06-07] MEDS: TIZANIDINE HCL 4 MG TABLET PO SCH ×3 (05:16→21:52)
[2019-06-07 06:27] LABS: ABSOLUTE EOSINOPHILS # (AUTO) 0.3 10^3/uL (0.0-0.6); ABSOLUTE LYMPHOCYTES (AUTO) 1.7 10^3/uL (0.5-4.7); ABSOLUTE MONOCYTES (AUTO) 0.6 10^3/uL (0.1-1.4); ABSOLUTE NEUT (AUTO) 2.3 10^3/uL (1.7-8.2); BASOPHILS % (AUTO) 0.7 % (0-2); HEMOGLOBIN 10.8 g/dL (12.0-15.5); LYMPHOCYTES % (AUTO) 35.1 % (13-45); MEAN CORPUSCULAR HEMOGLOBIN 26.7 pg (27.0-33.4); MEAN CORPUSCULAR HGB CONC 32.8 g/dL (32.0-36.0); MEAN CORPUSCULAR VOLUME 81 fl (80-97); MONOCYTES % (AUTO) 12.1 % (3-13); PLATELET COUNT 243 10^3/uL (150-450); RED BLOOD COUNT 4.07 10^6/uL (3.72-5.28); RED CELL DISTRIBUTION WIDTH 14.2 % (11.5-14.0); SEGMENTED NEUTROPHILS % (AUTO) 46.1 % (42-78); TOTAL CELLS COUNTED % (AUTO) 100 %; WHITE BLOOD COUNT 4.9 10^3/uL (4.0-10.5)
[2019-06-07 07:04] LABS: ANION GAP 8 (5-19); BLOOD UREA NITROGEN 24 mg/dL (7-20); CALCIUM 8.5 mg/dL (8.4-10.2); CARBON DIOXIDE 27 mmol/L (22-30); CHLORIDE 105 mmol/L (98-107); GLUCOSE 114 mg/dL (75-110); POTASSIUM 3.7 mmol/L (3.6-5.0); SODIUM 139.5 mmol/L (137-145)
[2019-06-07] MEDS: INSULIN LISPRO 100 UNIT/ML 3 ML VIAL SUBCUT SCH ×4 (08:01→21:52)
[2019-06-07] MEDS: INSULIN GLARGINE,HUM.REC.ANLOG 1,000 UNIT/10 ML VIAL SUBCUT SCH (08:02)
[2019-06-07] MEDS: LISINOPRIL 5 MG TABLET PO SCH (09:46)
[2019-06-07] MEDS: PROPRANOLOL HCL 40 MG TABLET PO SCH ×2 (09:46→21:52)
[2019-06-07] MEDS: FUROSEMIDE 20 MG TABLET PO SCH (09:47)
[2019-06-07] MEDS: CALCITRIOL 0.25 MCG CAPSULE PO SCH (09:47)
[2019-06-07] MEDS: DOCUSATE SODIUM 100 MG CAPSULE PO SCH ×2 (09:47→17:04)
[2019-06-07] MEDS: ASPIRIN 81 MG TABLET, CHEWABLE PO SCH (09:47)
[2019-06-07] MEDS: BUSPIRONE HCL 10 MG TABLET PO SCH ×2 (09:48→21:52)
[2019-06-07] MEDS: AMLODIPINE BESYLATE 5 MG TABLET PO SCH (09:48)
--- NOTE | 2019-06-07 14:36 | PDOC PROGRESS REPORT ---
Subjective Progress Note for:: 06/07/19 Subjective:: Saw patient this morning along with nurse at her bedside. States that she had some mid epigastric discomfort I believe this morning after her breakfast. States she felt a little bit nauseous but no vomiting yet. Otherwise she still has some pain in her back from laying on the bed all the time. Denies any chest pain, shortness of breath, dizziness or lightheadedness. Reason For Visit: RIGHT LUNG PNEUMONIA,MIRA ON CKD Physical Exam Vital Signs: Temp Pulse Resp BP Pulse Ox 98.0 F 67 20 182/53 H 91 L 06/07/19 12:02 06/07/19 12:02 06/07/19 12:02 06/07/19 12:02 06/07/19 12:02 Intake & Output 06/06/19 06/07/19 06/08/19 06:59 06:59 06:59 Intake Total 921 559 237 Output Total 700 100 Balance 921 -141 137 Weight 248 lb 10.903 oz 252 lb 6.868 oz General appearance: PRESENT: no acute distress Head exam: PRESENT: atraumatic, normocephalic Eye exam: PRESENT: EOMI. ABSENT: scleral icterus Ear exam: PRESENT: normal external ear exam Mouth exam: PRESENT: moist, tongue midline Respiratory exam: PRESENT: clear to auscultation ofe, symmetrical Cardiovascular exam: PRESENT: +S1, +S2 GI/Abdominal exam: PRESENT: normal bowel sounds, soft, tenderness - Midepigastric discomfort to palpation-not really tender.. ABSENT: distended, f irm, guarding, Nguyen's sign Extremities exam: ABSENT: pedal edema Neurological exam: PRESENT: alert, awake, oriented to person, oriented to place, CN II-XII grossly intact Skin exam: PRESENT: dry, warm Results Laboratory Results: 06/07/19 05:44 06/07/19 05:44 06/07/19 06/07/19 05:44 05:44 WBC 4.9 RBC 4.07 Hgb 10.8 L Hct 33.0 L MCV 81 MCH 26.7 L MCHC 32.8 RDW 14.2 H Plt Count 243 Seg Neutrophils % 46.1 Lymphocytes % 35.1 Monocytes % 12.1 Eosinophils % 6.0 Basophils % 0.7 Absolute Neutrophils 2.3 Absolute Lymphocytes 1.7 Absolute Monocytes 0.6 Absolute Eosinophils 0.3 Absolute Basophils 0.0 Sodium 139.5 Potassium 3.7 Chloride 105 Carbon Dioxide 27 Anion Gap 8 BUN 24 H Creatinine 1.89 H Est GFR ( Amer) 31 L Est GFR (Non-Af Amer) 26 L Glucose 114 H Calcium 8.5 05/25/19 05/25/19 05/25/19 11:50 11:50 19:08 Creatine Kinase 63 CK-MB (CK-2) 1.74 1.78 Troponin I 0.023 0.031 NT-Pro-B Natriuret Pep 05/25/19 05/26/19 05/26/19 19:08 01:14 01:14 Creatine Kinase 59 52 CK-MB (CK-2) 1.89 Troponin I 0.026 NT-Pro-B Natriuret Pep 05/26/19 05/26/19 05/27/19 08:32 08:32 09:28 Creatine Kinase 60 CK-MB (CK-2) 2.30 Troponin I 0.026 NT-Pro-B Natriuret Pep [id number] H 05/30/19 06/05/19 17:36 12:20 Creatine Kinase CK-MB (CK-2) 0.75 Troponin I 0.018 0.015 NT-Pro-B Natriuret Pep Impressions: Chest CT 05/25/19 14:08 IMPRESSION: Moderate right pleural effusion. Small left pleural effusion. Mild associated lower lobe atelectasis. IMPRESSION: There is some degree of renal atrophy. No acute finding in the abdomen or pelvis. Abdomen/Pelvis CT 05/25/19 14:22 IMPRESSION: Moderate right pleural effusion. Small left pleural effusion. Mild associated lower lobe atelectasis. IMPRESSION: There is some degree of renal atrophy. No acute finding in the abdomen or pelvis. KUB X-Ray 05/28/19 00:00 IMPRESSION: Nonobstructive bowel gas pattern. Persistent small right pleural effusion and bibasilar airspace disease atelectasis versus pneumonia Thoracentesis Ultrasound 05/28/19 08:37 IMPRESSION: SUCCESSFUL RIGHT THORACENTESIS USING ULTRASOUND GUIDANCE. Chest X-Ray 05/29/19 00:00 IMPRESSION: STABLE APPEARANCE. NO PNEUMOTHORAX. Assessment and Plan - Diagnosis (1) MIRA on stage IV CKD Is this a current diagnosis for this admission?: Yes (2) Acute and chronic respiratory failure with hypoxia Is this a current diagnosis for this admission?: Yes (3) C. difficile diarrhea Is this a current diagnosis for this admission?: Yes (4) Dehydration Is this a current diagnosis for this admission?: Yes (5) Diabetes mellitus, type II Qualifiers: Diabetes mellitus terminal worker insulin use: with penitentiary use Diabetes mellitus complication status: with hyperglycemia Qualified Code(s): E11.65 - Type 2 diabetes mellitus with hyperglycemia; Z79.4 - [facility] (current) use of insulin Is this a current diagnosis for this admission?: Yes (6) Right lung pneumonia Is this a current diagnosis for this admission?: Yes - Plan Summary Plan Summary: Acute respiratory failure-seems to be doing okay-continue with supplemental oxygen. Likely secondary to pneumonia and questionable pleural effusion. Chest pain-patient did complain of chest pain 2 days ago which have resolved. I am not to clear why he is having chest pain. I thought this was secondary to likely pneumonia. I do not this is cardiac and more likely may be anxiety driven. Right-sided pneumonia- She completed IV antibiotics -continue with bronchial hygiene Hypertension-seems to have intermittent elevated pressures greater than 160. But for most of the time it is within limits. Her diastolic pressures asked to be lower than normal. I did increase her Norvasc to 10 mg yesterday. And she was also restarted on Lasix. C. difficile-continue with oral vancomycin, day 6 Acute on chronic kidney disease-had to receive hemodialysis emergently twice and currently not on dialysis. Nephrology is consulted and I appreciate their assistance. Continue to avoid nephrotoxic agents [id number] greater than 10. Continue with sliding scale and Lantus 12 units Disposition-she is pending placement to her rehab facility which may not happen until Saturday.
[2019-06-07] MEDS: NITROGLYCERIN 0.4 MG/TAB 25 TAB/BOTTLE SL PRN (14:40)
[2019-06-07 15:21] LABS: CREATINE KINASE MB 0.38 ng/mL (<4.55); TROPONIN I 0.023 ng/mL
--- NOTE | 2019-06-07 23:54 | EKG REPORT ---
SEVERITY:- ABNORMAL ECG - SINUS RHYTHM PROBABLE LEFT ATRIAL ABNORMALITY RBBB AND LAFB : Confirmed by: Shon Carrasco 07-Jun-2019 23:53:05
[2019-06-08] MEDS: HEPARIN SOD (PORCINE) 5,000 UNIT/ML 1 ML SYRINGE SUBCUT SCH ×3 (05:26→21:35)
[2019-06-08] MEDS: VANCOMYCIN HCL INJ 500 MG VIAL PO SCH ×3 (05:26→16:59)
[2019-06-08] MEDS: TIZANIDINE HCL 4 MG TABLET PO SCH ×3 (05:27→21:34)
[2019-06-08] MEDS: PANTOPRAZOLE SODIUM 40 MG TABLET.DR PO SCH (05:27)
[2019-06-08] MEDS: INSULIN LISPRO 100 UNIT/ML 3 ML VIAL SUBCUT SCH ×4 (08:40→21:34)
[2019-06-08] MEDS: ASPIRIN 81 MG TABLET, CHEWABLE PO SCH (09:26)
[2019-06-08] MEDS: BUSPIRONE HCL 10 MG TABLET PO SCH ×2 (09:26→21:34)
[2019-06-08] MEDS: DOCUSATE SODIUM 100 MG CAPSULE PO SCH ×2 (09:26→16:59)
[2019-06-08] MEDS: PROPRANOLOL HCL 40 MG TABLET PO SCH ×2 (09:26→21:34)
[2019-06-08] MEDS: AMLODIPINE BESYLATE 5 MG TABLET PO SCH (09:26)
[2019-06-08] MEDS: FUROSEMIDE 20 MG TABLET PO SCH (09:26)
[2019-06-08] MEDS: LISINOPRIL 5 MG TABLET PO SCH ×2 (09:26→13:58)
[2019-06-08] MEDS: INSULIN GLARGINE,HUM.REC.ANLOG 1,000 UNIT/10 ML VIAL SUBCUT SCH (09:27)
[2019-06-08] MEDS: CALCITRIOL 0.25 MCG CAPSULE PO SCH (09:27)
--- NOTE | 2019-06-08 10:35 | PDOC PROGRESS REPORT ---
Subjective Progress Note for:: 06/08/19 Subjective:: 78 year old female patient with past medical history of morbid obesity, hypertension, type 2 diabetes mellitus, hyperlipidemia, presents with chief complaint of shortness of breath, right-sided neck jaw and chest pain. Patient reported that she has been in her usual baseline state of health until this morning 7 AM when she started to have the above-mentioned complaints. The chest neck and jaw pain is reproducible. Of note about 6 days ago patient sta rted to have abdominal pain and diarrhea for which she visited urgent care and she was given clarithromycin and Flagyl. And has associated nausea and vomiting. Denies any fever, chills, cough, palpitation or diaphoresis. Have any headache lightheadedness or blurring of vision. Her blood work shows leukocytosis of 16,000, hyponatremia with sodium of 127, hyperglycemia with blood glucose of 416, BUN 54 and creatinine 5.15. Her chest x-ray reported as right basilar airspace disease with moderate pleural effusion. 06/08/[id number]-smwv-old female with multiple medical problems admitted for right- sided pneumonia and MIRA during the hospital stay required dialysis. She is to off dialysis for the last few days. Creatinine was improved to 1.89 today electrolytes are stable. I spoke to Dr. Bowen as per her there is no further need for dialysis. Patient is waiting for placement. No acute events in the last 24 hours. Afebrile. Reason For Visit: RIGHT LUNG PNEUMONIA,MIRA ON CKD Physical Exam Vital Signs: Temp Pulse Resp BP Pulse Ox 97.6 F 69 16 161/45 H 95 06/08/19 08:36 06/08/19 08:36 06/08/19 08:36 06/08/19 08:36 06/08/19 08:36 Intake & Output 06/07/19 06/08/19 06/09/19 06:59 06:59 06:59 Intake Total 559 918 Output Total 700 750 Balance -141 168 Weight 114.5 kg 114.6 kg General appearance: PRESENT: no acute distress, obese Head exam: PRESENT: atraumatic Eye exam: PRESENT: PERRLA Ear exam: PRESENT: normal external ear exam Mouth exam: PRESENT: moist, tongue midline Teeth exam: PRESENT: poor dentation Neck exam: ABSENT: carotid bruit, JVD, lymphadenopathy, thyromegaly Respiratory exam: PRESENT: clear to auscultation ofe, decreased breath sounds. ABSENT: rales, rhonchi, wheezes Cardiovascular exam: PRESENT: tachycardia GI/Abdominal exam: PRESENT: normal bowel sounds, soft. ABSENT: distended, guarding, mass, organolmegaly, rebound, tenderness Rectal exam: PRESENT: deferred Extremities exam: PRESENT: full ROM, pedal edema, +1 edema. ABSENT: calf tenderness, clubbing Neurological exam: PRESENT: alert, awake, oriented to person, oriented to place, oriented to time, oriented to situation, CN II-XII grossly intact. ABSENT: motor sensory deficit Psychiatric exam: PRESENT: appropriate affect, normal mood. ABSENT: homicidal ideation, suicidal ideation Results Laboratory Results: 06/07/19 05:44 06/07/19 05:44 05/25/19 05/25/19 05/25/19 11:50 11:50 19:08 Creatine Kinase 63 CK-MB (CK-2) 1.74 1.78 Troponin I 0.023 0.031 NT-Pro-B Natriuret Pep 05/25/19 05/26/19 05/26/19 19:08 01:14 01:14 Creatine Kinase 59 52 CK-MB (CK-2) 1.89 Troponin I 0.026 NT-Pro-B Natriuret Pep 05/26/19 05/26/19 05/27/19 08:32 08:32 09:28 Creatine Kinase 60 CK-MB (CK-2) 2.30 Troponin I 0.026 NT-Pro-B Natriuret Pep 30639 H 05/30/19 06/05/19 06/07/19 17:36 12:20 14:40 Creatine Kinase < 20 L CK-MB (CK-2) 0.75 Troponin I 0.018 0.015 NT-Pro-B Natriuret Pep 06/07/19 14:40 Creatine Kinase CK-MB (CK-2) 0.38 Troponin I 0.023 NT-Pro-B Natriuret Pep Impressions: Chest CT 05/25/19 14:08 IMPRESSION: Moderate right pleural effusion. Small left pleural effusion. Mild associated lower lobe atelectasis. IMPRESSION: There is some degree of renal atrophy. No acute finding in the abdomen or pelvis. Abdomen/Pelvis CT 05/25/19 14:22 IMPRESSION: Moderate right pleural effusion. Small left pleural effusion. Mild associated lower lobe atelectasis. IMPRESSION: There is some degree of renal atrophy. No acute finding in the abdomen or pelvis. KUB X-Ray 05/28/19 00:00 IMPRESSION: Nonobstructive bowel gas pattern. Persistent small right pleural effusion and bibasilar airspace disease atelectasis versus pneumonia Thoracentesis Ultrasound 05/28/19 08:37 IMPRESSION: SUCCESSFUL RIGHT THORACENTESIS USING ULTRASOUND GUIDANCE. Chest X-Ray 05/29/19 00:00 IMPRESSION: STABLE APPEARANCE. NO PNEUMOTHORAX. Assessment and Plan - Diagnosis (1) Acute and chronic respiratory failure with hypoxia Is this a current diagnosis for this admission?: Yes Plan: Moderate improvement. Still dependent on BiPAP and supplemental oxygen. Due to underlying pneumonia and pleural effusion and worsening CKD. 06/04/2019. SBP 668665, T-max 97.8, pulse 70s, RR 1925, SPO2 98% 5 L FiO2 40% NC. 06/03/2019. SBP 598485, T-max 97.8, pulse 80s, RR 2025, SPO2 98% FiO2 32%. Urine Output 1801. 06/02/2019. SBP 979692, T-max 98.1, pulse 80s, RR 1824, SPO2 96% FiO2 32%. Urine output 750. 06/01/2019. SBP 877452, T-max 97.9, pulse 80s, RR 2030, SPO2 96% 5 L NC. Urine output 750 05/31/2019. SBP 733718, T-max 97.4, pulse 80s, RR 1827, SPO2 98% 5 L NC FiO2 32%. Urine output 450. 05/30/2019. Status post hemodialysis. 500 cc removed. 05/30/2019: SBP 787127, T-max 98.4, pulse 80s, RR 2025, SPO2 95%, FiO2 32%. Sodium 132.5, potassium 4.8, BUN 64, creatinine 4.8, BGL 229. 05/28/2019 is status post right-sided thoracentesis. 850 mL removed. WBC 753. Pending LDH, protein, culture and Gram stain. 05/29/2019. SBP 340934, T-max 98.1, pulse 80s, RR 1420, SPO2 94% 5 L NC. Sodium 128, potassium 4.9, bicarb 19, BUN 83, creatinine 6.91. 05/28/2019. SBP 786912, T-max 97.8, pulse 80s, RR 2430, SPO2 93% 5 L NC. WBC 9.0, hemoglobin 10.1, platelets 476, sodium 126.7, potassium 4.9, bicarb 18, BUN 76, creatinine 6.83, BGL 201. 05/27/2019. SBP 059039, T-max 98.8, pulse 80s RR 1830, SPO2 9094 %FiO2 32% 5 L. WBC 10.7, hemoglobin 9.9, platelets 429, sodium 125.8, potassium 4.8, bicarb 19, BUN 64, creatinine 6.6, BGL 265 Received 7 days of IV antibiotics. Levofloxacin day 06/07. Antibiotics DC'd on 06/02/2019. Continue nebs, supplemental oxygen, PRN BiPAP. Cultures negative. 06/08/2019-this elderly female admitted for acute on chronic respiratory failure with hypoxia pulse ox is a 94% on 3 L. Most likely secondary to underlying pneumonia which was resolving. Cultures are negative so far and the patient is waiting for rehab placement. (2) MIRA on stage IV CKD Is this a current diagnosis for this admission?: Yes Plan: Significant improvement. Nonoliguric. Creatinine back to baseline. Urine output 1150. Received hemodialysis on 06/01/2019, 05/29/2019. 06/04/2019. SBP 097218, T-max 97.8, pulse 70s, RR 1925, SPO2 98% 5 L FiO2 40% NC. Sodium 140, potassium 4.2, bicarb 27, BUN 35, creatinine 2.05. 06/03/2019. SBP 104832, T-max 97.8, pulse 80s, RR 2025, SPO2 98% FiO2 32%. Urine Output 1801. Sodium 141, potassium 4.1, bicarb 28, BUN 40, creatinine 2.42. 06/02/2019. SBP 978173, T-max 98.1, pulse 80s, RR 1824, SPO2 96% FiO2 32%. Urine output 750. Sodium 139, potassium 4.2, bicarb 26, creatinine 3.02, BGL 83. 05/31/2019. SBP 798573, T-max 97.4, pulse 80s, RR 1827, SPO2 98% 5 L NC FiO2 32%. Sodium 135.5, potassium 4.5, bicarb 23, creatinine 4.72, BGL 85. Urine output 450. 05/30/2019: SBP 361761, T-max 98.4, pulse 80s, RR 2025, SPO2 95%, FiO2 32%. Sodium 132.5, potassium 4.8, BUN 64, creatinine 4.8, BGL 229. 05/29/2019. SBP 541702, T-max 98.1, pulse 80s, RR 1420, SPO2 94% 5 L NC. Sodium 128, potassium 4.9, bicarb 19, BUN 83, creatinine 6.91. 05/28/2019. SBP 750402, T-max 97.8, pulse 80s, RR 2430, SPO2 93% 5 L NC. I/O 2525/335 balance 2190. WBC 9.0, hemoglobin 10.1, platelets 476, sodium 126.7, potassium 4.9, bicarb 18, BUN 76, creatinine 6.83, BGL 201. 05/27/2019. SBP 109457, T-max 98.8, pulse 80s RR 1830, SPO2 9094 %FiO2 32% 5 L. WBC 10.7, hemoglobin 9.9, platelets 429, sodium 125.8, potassium 4.8, bicarb 19, BUN 64, creatinine 6.6, BGL 265 Strict in and out, monitor volume status and electrolytes replace as needed, avoid nephrotoxic agents. Nephrology following. Recommendations noted. 06/08/2019-patient was admitted with MIRA on CKD requiring dialysis. Creatinine is continued to improve on daily basis latest creatinine is 1.89. It was peaked to 6.9 few days ago. I spoke to Dr. Bowen as per her there is no need for further dialysis. Patient is waiting for placement. Serum potassium is 3.7 serum sodium is 139 stable. (3) Right lung pneumonia Is this a current diagnosis for this admission?: Yes Plan: Community-acquired pneumonia versus parapneumonic effusion. As per #1. 06/08/2019-patient was admitted with community-acquired pneumonia most likely gra m-positive organisms. Cultures are negative. Completed the antibiotic course. (4) Hypertension Qualifiers: Hypertension type: essential hypertension Qualified Code(s): I10 - Essential (primary) hypertension Is this a current diagnosis for this admission?: Yes Plan: Not controlled. Switch nicardipine with amlodipine. Amlodipine 5 mg p.o. daily, could be increased as needed. Increase propranolol to 120 twice daily. IV hydralazine PRN. Adjust meds as needed. Patient may benefit from JUDY once renal function is back to baseline. Note added on propranolol. Even though propranolol is not indicated as first choice for BP patient does have significant essential tremor. Will start on propranolol to see if it will improve her essential tremor as well as BP. If not we will add another medication. 06/08/2019-patient blood pressure today is 157/55. Relatively controlled. Patient is on propranolol 120 mg p.o. daily and IV hydralazine on as needed basis. Plan is to continue the present management. (5) C. difficile diarrhea Is this a current diagnosis for this admission?: Yes Plan: 06/08/2019-patient developed C. difficile diarrhea. Diarrhea is resolving. Patient is presently on p.o. vancomycin plan is to continue the antibiotic therapy. 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 We will keep adjusting insulin dosage. Uncontrolled. A1c > 10%. Not a candidate for metformin and sulfonylurea due to underlying CKD. Diabetic diet, sliding scale insulin, long-acting insulin, pre-meal insulin, Accu-Chek, hypoglycemia protocol. Adjust dosage as needed. Outpatient PCP follow-up. 06/08/2019-patient has history of type 2 diabetes mellitus hemoglobin A1c is more than 10. Presently on insulin sliding scale and long-acting insulin and pre- meal insulin. Latest blood sugar is 142 plan is to continue the present management. (7) Obesity (BMI 30-39.9) Is this a current diagnosis for this admission?: No Plan: 06/08/2019-patient BMI is 46. Diet exercise weight loss lifestyle modifications are discussed with the patient dietary consult was requested. - Time Time Spent with patient: 25-34 minutes Smoking Cessation Education: over 10 minutes Medications reviewed and adjusted accordingly: Yes Anticipated discharge: SNF
--- NOTE | 2019-06-08 12:00 | PDOC PROGRESS REPORT ---
Subjective Progress Note for:: 06/08/19 Subjective:: Patient tells me that she feels good today. She just had a bath and is feeling better. Her blood pressure is still somewhat elevated. She is making urine. She is awaiting rehab placement. She did not complain of any chest pains no shortness of breath today. Reason For Visit: RIGHT LUNG PNEUMONIA,MIRA ON CKD Physical Exam Vital Signs: Temp Pulse Resp BP Pulse Ox 97.6 F 69 16 161/45 H 95 06/08/19 08:36 06/08/19 08:36 06/08/19 08:36 06/08/19 08:36 06/08/19 08:36 Intake & Output 06/07/19 06/08/19 06/09/19 06:59 06:59 06:59 Intake Total 559 918 Output Total 700 750 Balance -141 168 Weight 114.5 kg 114.6 kg Exam: General appearance: PRESENT: no acute distress, cooperative, well-developed, well-nourished Head exam: PRESENT: atraumatic, normocephalic Eye exam: PRESENT: conjunctiva pink, PERRLA. ABSENT: scleral icterus Neck exam: ABSENT: JVD Respiratory exam: PRESENT: Normal breath sounds. ABSENT: crackles, rales, rhonchi, unlabored, wheezes Cardiovascular exam: PRESENT: Regular rate rhythm -+S1, +S2. ABSENT: diastolic murmur, systolic murmur GI/Abdominal exam: PRESENT: normal bowel sounds, soft. ABSENT: guarding, mass, tenderness Extremities exam: Bilateral grade 1 lower extremity edema Neurological exam: PRESENT: alert, awake, oriented to person, place and time. Skin exam: PRESENT: dry, warm, Cardiovascular exam: PRESENT: +S1, +S2 GI/Abdominal exam: PRESENT: normal bowel sounds, soft. ABSENT: organomegaly, tenderness Results Laboratory Results: 06/07/19 05:44 06/07/19 05:44 05/25/19 05/25/19 05/25/19 11:50 11:50 19:08 Creatine Kinase 63 CK-MB (CK-2) 1.74 1.78 Troponin I 0.023 0.031 NT-Pro-B Natriuret Pep 05/25/19 05/26/19 05/26/19 19:08 01:14 01:14 Creatine Kinase 59 52 CK-MB (CK-2) 1.89 Troponin I 0.026 NT-Pro-B Natriuret Pep 05/26/19 05/26/19 05/27/19 08:32 08:32 09:28 Creatine Kinase 60 CK-MB (CK-2) 2.30 Troponin I 0.026 NT-Pro-B Natriuret Pep 84538 H 05/30/19 06/05/19 06/07/19 17:36 12:20 14:40 Creatine Kinase < 20 L CK-MB (CK-2) 0.75 Troponin I 0.018 0.015 NT-Pro-B Natriuret Pep 06/07/19 14:40 Creatine Kinase CK-MB (CK-2) 0.38 Troponin I 0.023 NT-Pro-B Natriuret Pep Impressions: Chest CT 05/25/19 14:08 IMPRESSION: Moderate right pleural effusion. Small left pleural effusion. Mild associated lower lobe atelectasis. IMPRESSION: There is some degree of renal atrophy. No acute finding in the abdomen or pelvis. Abdomen/Pelvis CT 05/25/19 14:22 IMPRESSION: Moderate right pleural effusion. Small left pleural effusion. Mild associated lower lobe atelectasis. IMPRESSION: There is some degree of renal atrophy. No acute finding in the abdomen or pelvis. KUB X-Ray 05/28/19 00:00 IMPRESSION: Nonobstructive bowel gas pattern. Persistent small right pleural effusion and bibasilar airspace disease atelectasis versus pneumonia Thoracentesis Ultrasound 05/28/19 08:37 IMPRESSION: SUCCESSFUL RIGHT THORACENTESIS USING ULTRASOUND GUIDANCE. Chest X-Ray 05/29/19 00:00 IMPRESSION: STABLE APPEARANCE. NO PNEUMOTHORAX. Assessment & Plan - Diagnosis (1) MIRA on stage IV CKD Is this a current diagnosis for this admission?: Yes Plan: Currently the patient is nonoliguric. Kidney function continues to improve. Since the patient's kidney function is improving continuously every day I do not think the patient will need any further renal replacement therapy moving forward. (2) C. difficile diarrhea Is this a current diagnosis for this admission?: Yes Plan: On oral vancomycin. (3) Anemia in CKD (chronic kidney disease) Qualifiers: Chronic kidney disease stage: stage 4 (severe) Qualified Code(s): N18.4 - Chronic kidney disease, stage 4 (severe); D63.1 - Anemia in chronic kidney disease Is this a current diagnosis for this admission?: Yes (4) Right lung pneumonia Is this a current diagnosis for this admission?: Yes Plan: Was treated with a course of Levaquin. (5) Hypertension Qualifiers: Hypertension type: essential hypertension Qualified Code(s): I10 - Essential (primary) hypertension Is this a current diagnosis for this admission?: Yes Plan: Her nifedipine was switched to amlodipine by the hospitalist service. Given the dose of the nifedipine I think the patient needs to be on amlodipine 10 mg daily. Increase lisinopril to 10 mg daily. (6) Hyponatremia Is this a current diagnosis for this admission?: Yes Plan: Resolved. Discontinue fluid restriction for now. (7) Chest pain Is this a current diagnosis for this admission?: Yes Plan: No chest pains today. - Time Time with patient: 15-25 minutes
[2019-06-08] MEDS: HYDRALAZINE HCL INJ/PF 20 MG/1 ML SDV IV PRN (20:34)
[2019-06-09] MEDS: VANCOMYCIN HCL INJ 500 MG VIAL PO SCH ×4 (00:53→17:17)
[2019-06-09] MEDS: OXYCODONE HCL IR 5 MG TABLET PO PRN (03:02)
[2019-06-09 05:48] LABS: ABSOLUTE EOSINOPHILS # (AUTO) 0.3 10^3/uL (0.0-0.6); ABSOLUTE LYMPHOCYTES (AUTO) 1.7 10^3/uL (0.5-4.7); ABSOLUTE MONOCYTES (AUTO) 0.6 10^3/uL (0.1-1.4); ABSOLUTE NEUT (AUTO) 2.7 10^3/uL (1.7-8.2); BASOPHILS % (AUTO) 0.9 % (0-2); EOSINOPHILS % (AUTO) 5.5 % (0-6); HEMATOCRIT 31.2 % (36.0-47.0); HEMOGLOBIN 10.4 g/dL (12.0-15.5); LYMPHOCYTES % (AUTO) 31.5 % (13-45); MEAN CORPUSCULAR HEMOGLOBIN 26.9 pg (27.0-33.4); MEAN CORPUSCULAR HGB CONC 33.2 g/dL (32.0-36.0); MEAN CORPUSCULAR VOLUME 81 fl (80-97); MONOCYTES % (AUTO) 11.4 % (3-13); PLATELET COUNT 236 10^3/uL (150-450); RED BLOOD COUNT 3.86 10^6/uL (3.72-5.28); RED CELL DISTRIBUTION WIDTH 14.5 % (11.5-14.0); SEGMENTED NEUTROPHILS % (AUTO) 50.7 % (42-78); TOTAL CELLS COUNTED % (AUTO) 100 %; WHITE BLOOD COUNT 5.4 10^3/uL (4.0-10.5)
[2019-06-09] MEDS: TIZANIDINE HCL 4 MG TABLET PO SCH ×3 (05:56→21:41)
[2019-06-09] MEDS: PANTOPRAZOLE SODIUM 40 MG TABLET.DR PO SCH (05:56)
[2019-06-09] MEDS: HEPARIN SOD (PORCINE) 5,000 UNIT/ML 1 ML SYRINGE SUBCUT SCH ×3 (05:57→21:36)
[2019-06-09 06:05] LABS: ALANINE AMINOTRANSFERASE 16 U/L (9-52); ALBUMIN 2.7 g/dL (3.5-5.0); ALKALINE PHOSPHATASE 84 U/L (38-126); ANION GAP 6 (5-19); ASPARTATE AMINO TRANSFERASE 20 U/L (14-36); BILIRUBIN,DIRECT 0.3 mg/dL (0.0-0.4); BILIRUBIN,TOTAL 0.5 mg/dL (0.2-1.3); BLOOD UREA NITROGEN 24 mg/dL (7-20); CALCIUM 8.4 mg/dL (8.4-10.2); CARBON DIOXIDE 29 mmol/L (22-30); CHLORIDE 105 mmol/L (98-107); GLUCOSE 120 mg/dL (75-110); POTASSIUM 3.8 mmol/L (3.6-5.0); SODIUM 139.5 mmol/L (137-145); TOTAL PROTEIN 5.5 g/dL (6.3-8.2)
[2019-06-09] MEDS: INSULIN LISPRO 100 UNIT/ML 3 ML VIAL SUBCUT SCH ×4 (07:44→21:37)
[2019-06-09] MEDS: INSULIN GLARGINE,HUM.REC.ANLOG 1,000 UNIT/10 ML VIAL SUBCUT SCH (09:55)
[2019-06-09] MEDS: CALCITRIOL 0.25 MCG CAPSULE PO SCH (09:56)
[2019-06-09] MEDS: BUSPIRONE HCL 10 MG TABLET PO SCH ×2 (09:56→21:36)
[2019-06-09] MEDS: ASPIRIN 81 MG TABLET, CHEWABLE PO SCH (09:56)
[2019-06-09] MEDS: LISINOPRIL 5 MG TABLET PO SCH (09:56)
[2019-06-09] MEDS: PROPRANOLOL HCL 40 MG TABLET PO SCH ×2 (09:56→21:36)
[2019-06-09] MEDS: DOCUSATE SODIUM 100 MG CAPSULE PO SCH ×2 (09:56→17:16)
[2019-06-09] MEDS: FUROSEMIDE 20 MG TABLET PO SCH (09:56)
[2019-06-09] MEDS: AMLODIPINE BESYLATE 5 MG TABLET PO SCH (09:57)
[2019-06-09] MEDS: ONDANSETRON HCL INJ/PF 4 MG/2 ML SDV IV PRN (12:31)
--- NOTE | 2019-06-09 12:42 | PDOC PROGRESS REPORT ---
Subjective Progress Note for:: 06/09/19 Subjective:: Ms. Gregory is a very pleasant 78-year-old female who this morning states she is feeling better although she does still have some nausea for which she is receiving Zofran and Phenergan treatment. Patient sitting up in a chair in no acute distress. Patient states diarrhea is slowing at this time. She has no other complaints of chest pain, no shortness of breath, no palpitations. Patient does state that her breathing is much more improved at this time she silver s have incentive spirometry at the bedside. Reason For Visit: RIGHT LUNG PNEUMONIA,MIRA ON CKD Physical Exam Vital Signs: Temp Pulse Resp BP Pulse Ox 98.0 F 68 20 149/43 H 95 06/09/19 04:06 06/09/19 07:00 06/09/19 04:06 06/09/19 04:06 06/09/19 08:00 Intake & Output 06/08/19 06/09/19 06/10/19 06:59 06:59 06:59 Intake Total 918 466 Output Total 750 1150 Balance 168 -684 Weight 114.6 kg 113.8 kg General appearance: PRESENT: no acute distress, well-developed, well-nourished Head exam: PRESENT: atraumatic, normocephalic Eye exam: PRESENT: conjunctiva pink, EOMI, PERRLA. ABSENT: scleral icterus Mouth exam: PRESENT: moist, tongue midline Neck exam: ABSENT: carotid bruit, JVD, lymphadenopathy, thyromegaly Respiratory exam: PRESENT: clear to auscultation ofe. ABSENT: rales, rhonchi, wheezes Cardiovascular exam: PRESENT: RRR, other - +2-3 edema on the right lower extremity +1-2 on the left. ABSENT: diastolic murmur, rubs, systolic murmur Pulses: PRESENT: normal dorsalis pedis pul GI/Abdominal exam: PRESENT: normal bowel sounds, soft. ABSENT: distended, guarding, mass, organolmegaly, rebound, tenderness Extremities exam: PRESENT: pedal edema - +2-3 on the right +1-2 in the left Neurological exam: PRESENT: alert, awake, oriented to person, oriented to place, oriented to time, oriented to situation, CN II-XII grossly intact. ABSENT: motor sensory deficit Psychiatric exam: PRESENT: appropriate affect, normal mood. ABSENT: homicidal ideation, suicidal ideation Results Laboratory Results: 06/09/19 04:49 06/09/19 04:49 06/09/19 06/09/19 04:49 04:49 WBC 5.4 RBC 3.86 Hgb 10.4 L Hct 31.2 L MCV 81 MCH 26.9 L MCHC 33.2 RDW 14.5 H Plt Count 236 Seg Neutrophils % 50.7 Lymphocytes % 31.5 Monocytes % 11.4 Eosinophils % 5.5 Basophils % 0.9 Absolute Neutrophils 2.7 Absolute Lymphocytes 1.7 Absolute Monocytes 0.6 Absolute Eosinophils 0.3 Absolute Basophils 0.0 Sodium 139.5 Potassium 3.8 Chloride 105 Carbon Dioxide 29 Anion Gap 6 BUN 24 H Creatinine 1.83 H Est GFR ( Amer) 32 L Est GFR (Non-Af Amer) 27 L Glucose 120 H Calcium 8.4 Magnesium 1.7 Total Bilirubin 0.5 AST 20 ALT 16 Alkaline Phosphatase 84 Total Protein 5.5 L Albumin 2.7 L 05/25/19 05/25/19 05/25/19 11:50 11:50 19:08 Creatine Kinase 63 CK-MB (CK-2) 1.74 1.78 Troponin I 0.023 0.031 NT-Pro-B Natriuret Pep 05/25/19 05/26/19 05/26/19 19:08 01:14 01:14 Creatine Kinase 59 52 CK-MB (CK-2) 1.89 Troponin I 0.026 NT-Pro-B Natriuret Pep 05/26/19 05/26/19 05/27/19 08:32 08:32 09:28 Creatine Kinase 60 CK-MB (CK-2) 2.30 Troponin I 0.026 NT-Pro-B Natriuret Pep 55631 H 05/30/19 06/05/19 06/07/19 17:36 12:20 14:40 Creatine Kinase < 20 L CK-MB (CK-2) 0.75 Troponin I 0.018 0.015 NT-Pro-B Natriuret Pep 06/07/19 14:40 Creatine Kinase CK-MB (CK-2) 0.38 Troponin I 0.023 NT-Pro-B Natriuret Pep Impressions: Chest CT 05/25/19 14:08 IMPRESSION: Moderate right pleural effusion. Small left pleural effusion. Mild associated lower lobe atelectasis. IMPRESSION: There is some degree of renal atrophy. No acute finding in the abdomen or pelvis. Abdomen/Pelvis CT 05/25/19 14:22 IMPRESSION: Moderate right pleural effusion. Small left pleural effusion. Mild associated lower lobe atelectasis. IMPRESSION: There is some degree of renal atrophy. No acute finding in the abdomen or pelvis. KUB X-Ray 05/28/19 00:00 IMPRESSION: Nonobstructive bowel gas pattern. Persistent small right pleural effusion and bibasilar airspace disease atelecta sis versus pneumonia Thoracentesis Ultrasound 05/28/19 08:37 IMPRESSION: SUCCESSFUL RIGHT THORACENTESIS USING ULTRASOUND GUIDANCE. Chest X-Ray 05/29/19 00:00 IMPRESSION: STABLE APPEARANCE. NO PNEUMOTHORAX. Assessment and Plan - Diagnosis (1) MIRA on stage IV CKD Is this a current diagnosis for this admission?: Yes Plan: Continues to improve with a creatinine 1.83 today. Patient remains nonoliguric. Patient had 2 rounds of dialysis last week no other should be required. We will continue to follow repeat BMP in the a.m. (2) C. difficile diarrhea Is this a current diagnosis for this admission?: Yes Plan: Continue oral vancomycin. Patient does state that she is having no abdominal pain and diarrhea is not as worse. (3) Anemia in CKD (chronic kidney disease) Qualifiers: Chronic kidney disease stage: stage 4 (severe) Qualified Code(s): N18.4 - Chronic kidney disease, stage 4 (severe); D63.1 - Anemia in chronic kidney disease Is this a current diagnosis for this admission?: Yes Plan: Chronic, stable. We will continue to follow. (4) Right lung pneumonia Is this a current diagnosis for this admission?: Yes Plan: Continue current course of Levaquin. Incentive spirometer at bedside. Patient up out of bed. Improved we will continue to follow. - Time Time Spent with patient: 15-24 minutes Medications reviewed and adjusted accordingly: Yes Anticipated discharge: Acute Rehab - Inpatient Certification Medical Necessity: Other - Awaiting rehab placement
[2019-06-09] MEDS: PROMETHAZINE HCL INJ 25 MG/1 ML VIAL IV PRN (14:26)
[2019-06-10] MEDS: VANCOMYCIN HCL INJ 500 MG VIAL PO SCH ×2 (00:27→14:11)
[2019-06-10] MEDS: OXYCODONE HCL IR 5 MG TABLET PO PRN (02:59)
[2019-06-10] MEDS: HEPARIN SOD (PORCINE) 5,000 UNIT/ML 1 ML SYRINGE SUBCUT SCH ×3 (06:32→21:45)
[2019-06-10] MEDS: PANTOPRAZOLE SODIUM 40 MG TABLET.DR PO SCH (06:32)
[2019-06-10] MEDS: TIZANIDINE HCL 4 MG TABLET PO SCH ×3 (06:32→21:45)
[2019-06-10] MEDS: INSULIN LISPRO 100 UNIT/ML 3 ML VIAL SUBCUT SCH ×4 (08:21→21:46)
--- NOTE | 2019-06-10 09:59 | PDOC PROGRESS REPORT ---
Subjective Progress Note for:: 06/10/19 Subjective:: Ms. Gregory is a very pleasant 78-year-old female who this morning states she is feeling better although she does still have some nausea for which she is receiving Zofran and Phenergan treatment. Patient sitting up in a chair in no acute distress. Patient states diarrhea is slowing at this time. She has no other complaints of chest pain, no shortness of breath, no palpitations. Patient does state that her breathing is much more improved at this time she silver s have incentive spirometry at the bedside. 06/10/2019-no complaints at this time. Patient sitting up in the chair in no acute distress. States breathing is much improved but does have continued int ermittent swelling in the right lower extremity. Reason For Visit: RIGHT LUNG PNEUMONIA,MIRA ON CKD Physical Exam Vital Signs: Temp Pulse Resp BP Pulse Ox 97.9 F 66 20 158/47 H 96 06/10/19 03:30 06/10/19 07:00 06/10/19 03:30 06/10/19 03:30 06/10/19 04:24 Intake & Output 06/09/19 06/10/19 06/11/19 06:59 06:59 06:59 Intake Total 466 1137 Output Total 1150 665 Balance -684 472 Weight 113.8 kg 110.8 kg General appearance: PRESENT: no acute distress, well-developed, well-nourished Neck exam: ABSENT: carotid bruit, JVD, lymphadenopathy, thyromegaly Respiratory exam: PRESENT: clear to auscultation ofe. ABSENT: rales, rhonchi, wheezes Cardiovascular exam: PRESENT: RRR. ABSENT: diastolic murmur, rubs, systolic murmur Pulses: PRESENT: normal dorsalis pedis pul Vascular exam: PRESENT: normal capillary refill GI/Abdominal exam: PRESENT: normal bowel sounds, soft. ABSENT: distended, guarding, mass, organolmegaly, rebound, tenderness Extremities exam: PRESENT: pedal edema - Gross 4+ pedal edema right lower extremity +1-2 left lower extremity Neurological exam: PRESENT: alert, awake, oriented to person, oriented to place, oriented to time, oriented to situation, CN II-XII grossly intact. ABSENT: motor sensory deficit Psychiatric exam: PRESENT: appropriate affect, normal mood. ABSENT: homicidal ideation, suicidal ideation Skin exam: PRESENT: dry, intact, warm. ABSENT: cyanosis, rash Results Laboratory Results: 06/09/19 04:49 06/09/19 04:49 05/25/19 05/25/19 05/25/19 11:50 11:50 19:08 Creatine Kinase 63 CK-MB (CK-2) 1.74 1.78 Troponin I 0.023 0.031 NT-Pro-B Natriuret Pep 05/25/19 05/26/19 05/26/19 19:08 01:14 01:14 Creatine Kinase 59 52 CK-MB (CK-2) 1.89 Troponin I 0.026 NT-Pro-B Natriuret Pep 05/26/19 05/26/19 05/27/19 08:32 08:32 09:28 Creatine Kinase 60 CK-MB (CK-2) 2.30 Troponin I 0.026 NT-Pro-B Natriuret Pep 61714 H 05/30/19 06/05/19 06/07/19 17:36 12:20 14:40 Creatine Kinase < 20 L CK-MB (CK-2) 0.75 Troponin I 0.018 0.015 NT-Pro-B Natriuret Pep 06/07/19 14:40 Creatine Kinase CK-MB (CK-2) 0.38 Troponin I 0.023 NT-Pro-B Natriuret Pep Impressions: Chest CT 05/25/19 14:08 IMPRESSION: Moderate right pleural effusion. Small left pleural effusion. Mild associated lower lobe atelectasis. IMPRESSION: There is some degree of renal atrophy. No acute finding in the abdomen or pelvis. Abdomen/Pelvis CT 05/25/19 14:22 IMPRESSION: Moderate right pleural effusion. Small left pleural effusion. Mild associated lower lobe atelectasis. IMPRESSION: There is some degree of renal atrophy. No acute finding in the abdomen or pelvis. KUB X-Ray 05/28/19 00:00 IMPRESSION: Nonobstructive bowel gas pattern. Persistent small right pleural effusion and bibasilar airspace disease atelectasis versus pneumonia Thoracentesis Ultrasound 05/28/19 08:37 IMPRESSION: SUCCESSFUL RIGHT THORACENTESIS USING ULTRASOUND GUIDANCE. Chest X-Ray 05/29/19 00:00 IMPRESSION: STABLE APPEARANCE. NO PNEUMOTHORAX. Assessment and Plan - Diagnosis (1) MIRA on stage IV CKD Is this a current diagnosis for this admission?: Yes Plan: Continues to improve with a creatinine 1.83 today. Patient remains nonoliguric. Patient had 2 rounds of dialysis last week no other should be required. We will continue to follow repeat BMP in the a.m. Continues to be nonoliguric. I will repeat BMP in a.m. although suspect that this acute kidney injury has improved to the point that she will no longer require dialysis. (2) C. difficile diarrhea Is this a current diagnosis for this admission?: Yes Plan: Continue oral vancomycin. Patient does state that she is having no abdominal pain and diarrhea is not as worse. 06/10/2019-continues to improve on oral vancomycin. No changes plan of care at this time. (3) Anemia in CKD (chronic kidney disease) Qualifiers: Chronic kidney disease stage: stage 4 (severe) Qualified Code(s): N18.4 - Chronic kidney disease, stage 4 (severe); D63.1 - Anemia in chronic kidney dis ease Is this a current diagnosis for this admission?: Yes Plan: Chronic, stable. We will continue to follow. 06/10/2019-stable (4) Right lung pneumonia Is this a current diagnosis for this admission?: Yes - Time Time Spent with patient: 15-24 minutes - Inpatient Certification Medical Necessity: Other - Awaiting approval from insurance for transfer. Patient with not be able to take care of herself at home and requires constant supervision.
--- NOTE | 2019-06-10 10:19 | Progress Note Acknowledgement ---
Progress Note Acknowledgement Progess Note Acknowledgement: I, the undersigned member of the medical staff with appropriate privileges and with supervisory authority over Gio Royal, a [facility] practice allied health professional, acknowledge that I have reviewed the progress notes entered on this patient, and in my professional judgment believe that the assessment made and/or any care evidenced was appropriate
[2019-06-10] MEDS: INSULIN GLARGINE,HUM.REC.ANLOG 1,000 UNIT/10 ML VIAL SUBCUT SCH (11:33)
[2019-06-10] MEDS: CALCITRIOL 0.25 MCG CAPSULE PO SCH (11:34)
[2019-06-10] MEDS: FUROSEMIDE 20 MG TABLET PO SCH (11:34)
[2019-06-10] MEDS: ASPIRIN 81 MG TABLET, CHEWABLE PO SCH (11:35)
[2019-06-10] MEDS: BUSPIRONE HCL 10 MG TABLET PO SCH ×2 (11:36→21:45)
[2019-06-10] MEDS: AMLODIPINE BESYLATE 5 MG TABLET PO SCH (11:37)
[2019-06-10] MEDS: DOCUSATE SODIUM 100 MG CAPSULE PO SCH ×2 (11:37→18:35)
[2019-06-10] MEDS: LISINOPRIL 5 MG TABLET PO SCH (14:52)
[2019-06-10] MEDS: PROPRANOLOL HCL 40 MG TABLET PO SCH ×2 (14:53→21:45)
[2019-06-11] MEDS: OXYCODONE HCL IR 5 MG TABLET PO PRN (02:09)
[2019-06-11] MEDS: TIZANIDINE HCL 4 MG TABLET PO SCH (05:24)
[2019-06-11] MEDS: PANTOPRAZOLE SODIUM 40 MG TABLET.DR PO SCH (05:24)
[2019-06-11] MEDS: HEPARIN SOD (PORCINE) 5,000 UNIT/ML 1 ML SYRINGE SUBCUT SCH (05:24)
[2019-06-11] MEDS: INSULIN LISPRO 100 UNIT/ML 3 ML VIAL SUBCUT SCH (07:45)
--- NOTE | 2019-06-11 09:07 | PDOC PROGRESS REPORT ---
Subjective Progress Note for:: 06/11/19 Subjective:: Ms. Gregory is a very pleasant 78-year-old female who this morning states she is feeling better although she does still have some nausea for which she is receiving Zofran and Phenergan treatment. Patient sitting up in a chair in no acute distress. Patient states diarrhea is slowing at this time. She has no other complaints of chest pain, no shortness of breath, no palpitations. Patient does state that her breathing is much more improved at this time she silver s have incentive spirometry at the bedside. 06/10/2019-no complaints at this time. Patient sitting up in the chair in no acute distress. States breathing is much improved but does have continued int ermittent swelling in the right lower extremity. 06/11/2019-complaints she had trouble sleeping last night although she does not want sleeping medications. No other complaints laying in bed sleeping when I entered the room. Continues with intermittent swelling right lower extremity. Reason For Visit: RIGHT LUNG PNEUMONIA,MIRA ON CKD Physical Exam Vital Signs: Temp Pulse Resp BP Pulse Ox 97.8 F 66 20 138/45 H 96 06/11/19 07:23 06/11/19 07:23 06/11/19 07:23 06/11/19 07:23 06/11/19 08:57 Intake & Output 06/10/19 06/11/19 06/12/19 06:59 06:59 06:59 Intake Total 1137 662 Output Total 665 1300 Balance 472 -638 Weight 110.8 kg 113 kg General appearance: PRESENT: no acute distress, well-developed, well-nourished Neck exam: ABSENT: carotid bruit, JVD, lymphadenopathy, thyromegaly Respiratory exam: PRESENT: clear to auscultation ofe. ABSENT: rales, rhonchi, wheezes Cardiovascular exam: PRESENT: RRR. ABSENT: diastolic murmur, rubs, systolic murmur Pulses: PRESENT: +1 pedal pulses bilateral GI/Abdominal exam: PRESENT: normal bowel sounds, soft. ABSENT: distended, guarding, mass, organolmegaly, rebound, tenderness Extremities exam: PRESENT: pedal edema, other - +3-4 pedal edema on the right +1-2 on the left Neurological exam: PRESENT: alert, awake, oriented to person, oriented to place, oriented to time, oriented to situation, CN II-XII grossly intact. ABSENT: motor sensory deficit Psychiatric exam: PRESENT: appropriate affect, normal mood. ABSENT: homicidal ideation, suicidal ideation Results Laboratory Results: 06/09/19 04:49 06/09/19 04:49 05/25/19 05/25/19 05/25/19 11:50 11:50 19:08 Creatine Kinase 63 CK-MB (CK-2) 1.74 1.78 Troponin I 0.023 0.031 NT-Pro-B Natriuret Pep 05/25/19 05/26/19 05/26/19 19:08 01:14 01:14 Creatine Kinase 59 52 CK-MB (CK-2) 1.89 Troponin I 0.026 NT-Pro-B Natriuret Pep 05/26/19 05/26/19 05/27/19 08:32 08:32 09:28 Creatine Kinase 60 CK-MB (CK-2) 2.30 Troponin I 0.026 NT-Pro-B Natriuret Pep 61817 H 05/30/19 06/05/19 06/07/19 17:36 12:20 14:40 Creatine Kinase < 20 L CK-MB (CK-2) 0.75 Troponin I 0.018 0.015 NT-Pro-B Natriuret Pep 06/07/19 14:40 Creatine Kinase CK-MB (CK-2) 0.38 Troponin I 0.023 NT-Pro-B Natriuret Pep Impressions: Chest CT 05/25/19 14:08 IMPRESSION: Moderate right pleural effusion. Small left pleural effusion. Mild associated lower lobe atelectasis. IMPRESSION: There is some degree of renal atrophy. No acute finding in the abdomen or pelvis. Abdomen/Pelvis CT 05/25/19 14:22 IMPRESSION: Moderate right pleural effusion. Small left pleural effusion. Mild associated lower lobe atelectasis. IMPRESSION: There is some degree of renal atrophy. No acute finding in the abdomen or pelvis. KUB X-Ray 05/28/19 00:00 IMPRESSION: Nonobstructive bowel gas pattern. Persistent small right pleural effusion and bibasilar airspace disease atelectasis versus pneumonia Thoracentesis Ultrasound 05/28/19 08:37 IMPRESSION: SUCCESSFUL RIGHT THORACENTESIS USING ULTRASOUND GUIDANCE. Chest X-Ray 05/29/19 00:00 IMPRESSION: STABLE APPEARANCE. NO PNEUMOTHORAX. Assessment and Plan - Diagnosis (1) MIRA on stage IV CKD Is this a current diagnosis for this admission?: Yes Plan: Continues to improve with a creatinine 1.83 today. Patient remains nonoliguric. Patient had 2 rounds of dialysis last week no other should be required. We will continue to follow repeat BMP in the a.m. Continues to be nonoliguric. I will repeat BMP in a.m. although suspect that this acute kidney injury has improved to the point that she will no longer require dialysis. 06/11/2019-stable continue to follow. (2) C. difficile diarrhea Is this a current diagnosis for this admission?: Yes Plan: Continue oral vancomycin. Patient does state that she is having no abdominal pain and diarrhea is not as worse. 06/10/2019-continues to improve on oral vancomycin. No changes plan of care at this time. 06/11/2019-completed round of oral vancomycin. Will obtain 3 stools for negativi ty. Change plan of care as appropriate. (3) Anemia in CKD (chronic kidney disease) Qualifiers: Chronic kidney disease stage: stage 4 (severe) Qualified Code(s): N18.4 - Chronic kidney disease, stage 4 (severe); D63.1 - Anemia in chronic kidney disease Is this a current diagnosis for this admission?: Yes Plan: Chronic, stable. We will continue to follow. 06/10/2019-stable 06/11/2019-stable (4) Right lung pneumonia Is this a current diagnosis for this admission?: Yes Plan: Continue current course of Levaquin. Incentive spirometer at bedside. Patient up out of bed. Improved we will continue to follow. 06/11/2019-continue antibiotics. Patient continues an incentive spirometer. Out of bed as tolerated. - Time Time Spent with patient: 15-24 minutes - Inpatient Certification Medical Necessity: Risk of Complication if Not Cared For in Hospital
--- NOTE | 2019-06-11 09:49 | PDOC DISCHARGE SUMMARY ---
General - Admit/Disc Date/PCP Admission Date/Primary Care Provider: 05/25/19 14:29 BRISA RENE MD Discharge Date: 06/11/19 - Discharge Diagnosis (1) MIRA on stage IV CKD Is this a current diagnosis for this admission?: Yes (2) C. difficile diarrhea Is this a current diagnosis for this admission?: Yes (3) Anemia in CKD (chronic kidney disease) Is this a current diagnosis for this admission?: Yes (4) Right lung pneumonia Is this a current diagnosis for this admission?: Yes - Additional Information Resuscitation Status: Full Code Discharge Diet: As Tolerated Discharge Activity: Activity As Tolerated Prescriptions: Amlodipine Besylate [Norvasc 5 mg Tablet] 10 mg PO DAILY #30 tablet Aspirin [Aspirin 81 mg Chewable Tablet] 81 mg PO DAILY #30 tab.chew Buspirone HCl [Buspar 10 mg Tablet] 10 mg PO Q12 #60 tablet Furosemide [Lasix 20 mg Tablet] 20 mg PO DAILY@1400 #30 tablet Insulin Lispro Protamin/Lispro [Humalog Mix 75-25 100 unit/mL] 10 units SQ ACSUPPER #1 vial Insulin Lispro Protamin/Lispro [Humalog Mix 75-25 100 unit/mL] 30 unit SQ ACBRKFST #1 vial Lisinopril [Prinivil 5 mg Tablet] 10 mg PO DAILY #30 tablet Lorazepam [Ativan 0.5 mg Tablet] 0.5 mg PO HSP PRN #30 tablet PRN Reason: FOR ANXIETY Mupirocin [Bactroban 2% Ointment 22 gm] 1 applic TOP BID #1 tube Nifedipine [Nifedipine ER] 30 mg PO Q12 #60 tablet.er Omeprazole 20 mg PO BID #60 capsule. Propranolol HCl [Inderal 40 mg Tablet] 120 mg PO Q12 #60 tablet Triamcinolone Acetonide [Aristocort 0.1% Cream] 1 applic TOP BID #1 tube Home Medications: Amlodipine Besylate [Norvasc 5 mg Tablet] 10 mg PO DAILY #30 tablet 06/11/19 Aspirin [Aspirin 81 mg Chewable Tablet] 81 mg PO DAILY #30 tab.chew 06/11/19 Buspirone HCl [Buspar 10 mg Tablet] 10 mg PO Q12 #60 tablet 06/11/19 Furosemide [Lasix 20 mg Tablet] 20 mg PO DAILY@1400 #30 tablet 06/11/19 Insulin Lispro Protamin/Lispro [Humalog Mix 75-25 100 unit/mL] 10 units SQ ACSUPPER #1 vial 06/11/19 Insulin Lispro Protamin/Lispro [Humalog Mix 75-25 100 unit/mL] 30 unit SQ ACBRKFST #1 vial 06/11/19 Lisinopril [Prinivil 5 mg Tablet] 10 mg PO DAILY #30 tablet 06/11/19 Lorazepam [Ativan 0.5 mg Tablet] 0.5 mg PO HSP PRN #30 tablet 06/11/19 Mupirocin [Bactroban 2% Ointment 22 gm] 1 applic TOP BID #1 tube 06/11/19 Nifedipine [Nifedipine ER] 30 mg PO Q12 #60 tablet.er 06/11/19 Omeprazole 20 mg PO BID #60 capsule.dr 06/11/19 Propranolol HCl [Inderal 40 mg Tablet] 120 mg PO Q12 #60 tablet 06/11/19 Triamcinolone Acetonide [Aristocort 0.1% Cream] 1 applic TOP BID #1 tube 06/11/19 History of Present Illness Patient complains of: None this a.m. History of Present Illness: MEGAN CARVALHO is a 78 year old female with a long-standing history of morbid obesity, hypertension, type 2 diabetes mellitus, hyperlipidemia. She presented to the ER on 05/25/2019 with shortness of breath, chest neck and jaw pain. This chest jaw and neck pain were reproducible at the time. However, patient was found to have acute kidney injury that required 2 rounds of dialysis. Patient had subsequent further comp occasions with a C. difficile colitis after patient was treated for abdominal pain and diarrhea with Flagyl and clindamycin. Patient also has gross dependent pedal edema on the right leg with stasis ulcer noted has slightly less edema noted to the left. Hospital Course Hospital Course: Ms. Carvalho is a very pleasant 78-year-old female who presented to the ER with past medical history of morbid obesity, hypertension, type 2 diabetes mellitus, hyper lipidemia who had a right-sided neck gel pain and shortness of breath. The neck and chest pain was reproducible however patient was found to have acute kidney injury that subsequently required 2 rounds of dialysis. Subsequently patient developed abdominal pain diarrhea for which for which she was placed on clindamycin and Flagyl and subsequently obtained a C. difficile colitis. Patient is progressively improved throughout her hospital stay and is ready for discharge to [facility] today for further rehab and nursing needs. Patient has finished oral vancomycin for the C. difficile colitis. Diarrhea has slowed down at this time. Patient does not require dialysis at this time but does require rehab for strengthening. I will continue all home medications and several we started in the hospital for hypertension. For any further questions or needs please feel free to call the hospitalist office and thank you for assisting with this patient. Physical Exam Vital Signs: Temp Pulse Resp BP Pulse Ox 97.8 F 66 20 138/45 H 96 06/11/19 07:23 06/11/19 07:23 06/11/19 07:23 06/11/19 07:23 06/11/19 08:57 Intake & Output 06/10/19 06/11/19 06/12/19 06:59 06:59 06:59 Intake Total 1137 662 Output Total 665 1300 Balance 472 -638 Weight 110.8 kg 113 kg General appearance: PRESENT: no acute distress, well-developed, well-nourished Neck exam: ABSENT: carotid bruit, JVD, lymphadenopathy, thyromegaly Respiratory exam: PRESENT: clear to auscultation ofe. ABSENT: rales, rhonchi, wheezes Cardiovascular exam: PRESENT: RRR. ABSENT: diastolic murmur, rubs, systolic murmur Pulses: PRESENT: normal dorsalis pedis pul Vascular exam: PRESENT: normal capillary refill GI/Abdominal exam: PRESENT: normal bowel sounds, soft. ABSENT: distended, guarding, mass, organolmegaly, rebound, tenderness Extremities exam: PRESENT: full ROM, pedal edema, other - +3-4 pitting edema on the right +1-2 on the left. ABSENT: calf tenderness, clubbing Neurological exam: PRESENT: alert, awake, oriented to person, oriented to place, oriented to time, oriented to situation, CN II-XII grossly intact. ABSENT: motor sensory deficit Psychiatric exam: PRESENT: appropriate affect, normal mood. ABSENT: homicidal ideation, suicidal ideation Results Laboratory Results: 06/09/19 04:49 06/09/19 04:49 05/25/19 05/25/19 05/25/19 11:50 11:50 19:08 Creatine Kinase 63 CK-MB (CK-2) 1.74 1.78 Troponin I 0.023 0.031 NT-Pro-B Natriuret Pep 05/25/19 05/26/19 05/26/19 19:08 01:14 01:14 Creatine Kinase 59 52 CK-MB (CK-2) 1.89 Troponin I 0.026 NT-Pro-B Natriuret Pep 05/26/19 05/26/19 05/27/19 08:32 08:32 09:28 Creatine Kinase 60 CK-MB (CK-2) 2.30 Troponin I 0.026 NT-Pro-B Natriuret Pep 75183 H 05/30/19 06/05/19 06/07/19 17:36 12:20 14:40 Creatine Kinase < 20 L CK-MB (CK-2) 0.75 Troponin I 0.018 0.015 NT-Pro-B Natriuret Pep 06/07/19 14:40 Creatine Kinase CK-MB (CK-2) 0.38 Troponin I 0.023 NT-Pro-B Natriuret Pep Impressions: Chest CT 05/25/19 14:08 IMPRESSION: Moderate right pleural effusion. Small left pleural effusion. Mild associated lower lobe atelectasis. IMPRESSION: There is some degree of renal atrophy. No acute finding in the abdomen or pelvis. Abdomen/Pelvis CT 05/25/19 14:22 IMPRESSION: Moderate right pleural effusion. Small left pleural effusion. Mild associated lower lobe atelectasis. IMPRESSION: There is some degree of renal atrophy. No acute finding in the abdomen or pelvis. KUB X-Ray 05/28/19 00:00 IMPRESSION: Nonobstructive bowel gas pattern. Persistent small right pleural effusion and bibasilar airspace disease atelectasis versus pneumonia Thoracentesis Ultrasound 05/28/19 08:37 IMPRESSION: SUCCESSFUL RIGHT THORACENTESIS USING ULTRASOUND GUIDANCE. Chest X-Ray 05/29/19 00:00 IMPRESSION: STABLE APPEARANCE. NO PNEUMOTHORAX. Qualifiers - * PATIENT BEING DISCHARGED WITH ANY OF THE FOLLOWING DIAGNOSIS: No Acute Heart Failure - Is this a Heart Failure Patient?: No Plan Time Spent: Greater than 30 Minutes
[2019-06-11 10:16] LABS: ANION GAP 6 (5-19); BLOOD UREA NITROGEN 22 mg/dL (7-20); CALCIUM 8.5 mg/dL (8.4-10.2); CARBON DIOXIDE 30 mmol/L (22-30); CHLORIDE 104 mmol/L (98-107); GLUCOSE 124 mg/dL (75-110); POTASSIUM 3.8 mmol/L (3.6-5.0); SODIUM 139.9 mmol/L (137-145)
[2019-06-11] MEDS: INSULIN GLARGINE,HUM.REC.ANLOG 1,000 UNIT/10 ML VIAL SUBCUT SCH (10:20)
[2019-06-11] MEDS: ASPIRIN 81 MG TABLET, CHEWABLE PO SCH (10:25)
[2019-06-11] MEDS: PROPRANOLOL HCL 40 MG TABLET PO SCH (10:25)
[2019-06-11] MEDS: AMLODIPINE BESYLATE 5 MG TABLET PO SCH (10:26)
[2019-06-11] MEDS: LISINOPRIL 5 MG TABLET PO SCH (10:26)
[2019-06-11] MEDS: BUSPIRONE HCL 10 MG TABLET PO SCH (10:26)
[2019-06-11] MEDS: FUROSEMIDE 20 MG TABLET PO SCH (10:27)
[2019-06-11] MEDS: CALCITRIOL 0.25 MCG CAPSULE PO SCH (10:27)
[2019-06-11] MEDS: DOCUSATE SODIUM 100 MG CAPSULE PO SCH (10:28)
[2019-06-11 16:57] VITALS: BP 168/52
[2019-06-12] MEDS ORDERED: LISINOPRIL 10 MG TABLET PO SCH (10:00)
[2019-06-12] MEDS ORDERED: AMLODIPINE BESYLATE 10 MG TABLET PO SCH (10:00)
== END 2019-06-11 17:40 | DRG 682 ==
LOC: ER 12:01 → EH 14:29 → 3S 17:14 → 3N 05-28 13:28
PROVIDERS: ADMIT Internal Medicine; ATTEND Internal Medicine
PROC: 0W993ZX Drainage of Right Pleural Cavity, Percutaneous Approach, Diagnostic (ICD-10-PCS; principal; 2019-05-28)
PROC: 5A1D70Z Performance of Urinary Filtration, Intermittent, Less than 6 Hours Per Day (ICD-10-PCS; 2019-05-29)
PROC: 06HM33Z Insertion of Infusion Device into Right Femoral Vein, Percutaneous Approach (ICD-10-PCS; 2019-05-29)
PROC: B54BZZA Ultrasonography of Right Lower Extremity Veins, Guidance (ICD-10-PCS; 2019-05-29)
PROC: 5A1D70Z Performance of Urinary Filtration, Intermittent, Less than 6 Hours Per Day (ICD-10-PCS; 2019-06-01)
DX: N17.9 Acute kidney failure, unspecified (principal); J18.9 Pneumonia, unspecified organism; J96.21 Acute and chronic respiratory failure with hypoxia; J90 Pleural effusion, not elsewhere classified; E87.1 Hypo-osmolality and hyponatremia; Z68.41 Body mass index [BMI] 40.0-44.9, adult; A04.72 Enterocolitis due to Clostridium difficile, not specified as recurrent; L97.929 Non-pressure chronic ulcer of unspecified part of left lower leg with unspecified severity; I12.9 Hypertensive chronic kidney disease with stage 1 through stage 4 chronic kidney disease, or unspecified chronic kidney disease; E11.22 Type 2 diabetes mellitus with diabetic chronic kidney disease; N18.4 Chronic kidney disease, stage 4 (severe); E11.65 Type 2 diabetes mellitus with hyperglycemia; E66.01 Morbid (severe) obesity due to excess calories; D72.829 Elevated white blood cell count, unspecified; E86.0 Dehydration; D63.1 Anemia in chronic kidney disease; N25.0 Renal osteodystrophy; E78.5 Hyperlipidemia, unspecified; Z90.49 Acquired absence of other specified parts of digestive tract; Z87.891 Personal history of nicotine dependence; Z82.49 Family history of ischemic heart disease and other diseases of the circulatory system; Z83.3 Family history of diabetes mellitus; Z88.0 Allergy status to penicillin; Z88.1 Allergy status to other antibiotic agents; Z88.2 Allergy status to sulfonamides; Z79.4 Long term (current) use of insulin; I83.029 Varicose veins of left lower extremity with ulcer of unspecified site
CPT/HCPCS: 32555; 36415; 36556; 36600; 71045; 71250; 74018; 74176; 76937; 80048; 80053; 80074; 81001; 82150; 82272; 82550; 82553; 82607; 82728; 82746; 82803; 82945; 82962; 83036; 83540; 83550; 83615; 83735; 83880; 83970; 84100; 84155; 84157; 84443; 84484; 85025; 85027; 85045; 85610; 85730; 86704; 86706; 87040; 87045; 87070; 87075; 87086; 87088; 87205; 87340; 87493; 89050; 93005; 93010; 93306; 94640; 94660; 94799; 96374; 96375; 99291; C1752; J0360; J0456; J1644; J1815; J1940; J1956; J2405; J2550; J2800; J3370; J3490; J7030; J7614; Q5105

== ENCOUNTER → 2019-07-23 | Outpatient (CLI) | payer MEDICARE ==
[2019-07-23 16:04] LABS: ABSOLUTE BASOPHILS # (AUTO) 0.1 10^3/uL (0.0-0.2); ABSOLUTE EOSINOPHILS # (AUTO) 0.4 10^3/uL (0.0-0.6); ABSOLUTE LYMPHOCYTES (AUTO) 2.3 10^3/uL (0.5-4.7); ABSOLUTE MONOCYTES (AUTO) 0.8 10^3/uL (0.1-1.4); ABSOLUTE NEUT (AUTO) 6.6 10^3/uL (1.7-8.2); BASOPHILS % (AUTO) 1.1 % (0-2); EOSINOPHILS % (AUTO) 4.4 % (0-6); HEMATOCRIT 33.7 % (36.0-47.0); HEMOGLOBIN 10.8 g/dL (12.0-15.5); LYMPHOCYTES % (AUTO) 22.8 % (13-45); MEAN CORPUSCULAR HEMOGLOBIN 26.2 pg (27.0-33.4); MEAN CORPUSCULAR HGB CONC 32.1 g/dL (32.0-36.0); MEAN CORPUSCULAR VOLUME 82 fl (80-97); MONOCYTES % (AUTO) 7.4 % (3-13); PLATELET COUNT 413 10^3/uL (150-450); RED BLOOD COUNT 4.13 10^6/uL (3.72-5.28); RED CELL DISTRIBUTION WIDTH 15.5 % (11.5-14.0); SEGMENTED NEUTROPHILS % (AUTO) 64.3 % (42-78); TOTAL CELLS COUNTED % (AUTO) 100 %; WHITE BLOOD COUNT 10.2 10^3/uL (4.0-10.5)
[2019-07-23 16:20] LABS: ANION GAP 11 (5-19); BLOOD UREA NITROGEN 22 mg/dL (7-20); CALCIUM 8.2 mg/dL (8.4-10.2); CARBON DIOXIDE 29 mmol/L (22-30); CHLORIDE 101 mmol/L (98-107); GLUCOSE 174 mg/dL (75-110); POTASSIUM 3.4 mmol/L (3.6-5.0)
== END ==
LOC: OD 15:06
PROVIDERS: ATTEND Physician Assistant Medical
DX: I12.9 Hypertensive chronic kidney disease with stage 1 through stage 4 chronic kidney disease, or unspecified chronic kidney disease (principal); N18.4 Chronic kidney disease, stage 4 (severe); E11.22 Type 2 diabetes mellitus with diabetic chronic kidney disease; R60.9 Edema, unspecified; N25.0 Renal osteodystrophy; E87.5 Hyperkalemia
CPT/HCPCS: 36415; 80048; 85025

== ENCOUNTER → 2019-07-29 | Outpatient (CLI) | payer MEDICARE ==
[2019-07-29 10:56] LABS: ABSOLUTE BASOPHILS # (AUTO) 0.1 10^3/uL (0.0-0.2); ABSOLUTE EOSINOPHILS # (AUTO) 0.6 10^3/uL (0.0-0.6); ABSOLUTE LYMPHOCYTES (AUTO) 1.8 10^3/uL (0.5-4.7); ABSOLUTE MONOCYTES (AUTO) 0.8 10^3/uL (0.1-1.4); ABSOLUTE NEUT (AUTO) 4.8 10^3/uL (1.7-8.2); BASOPHILS % (AUTO) 0.9 % (0-2); HEMATOCRIT 31.5 % (36.0-47.0); HEMOGLOBIN 10.4 g/dL (12.0-15.5); LYMPHOCYTES % (AUTO) 21.8 % (13-45); MEAN CORPUSCULAR HGB CONC 33.2 g/dL (32.0-36.0); MEAN CORPUSCULAR VOLUME 81 fl (80-97); MONOCYTES % (AUTO) 10.4 % (3-13); PLATELET COUNT 296 10^3/uL (150-450); RED BLOOD COUNT 3.87 10^6/uL (3.72-5.28); RED CELL DISTRIBUTION WIDTH 15.4 % (11.5-14.0); SEGMENTED NEUTROPHILS % (AUTO) 58.9 % (42-78); TOTAL CELLS COUNTED % (AUTO) 100 %; WHITE BLOOD COUNT 8.1 10^3/uL (4.0-10.5)
[2019-07-29 11:03] LABS: APPEARANCE,URINE CLOUDY; BILIRUBIN,URINE NEGATIVE (NEGATIVE); COLOR,URINE YELLOW; GLUCOSE, URINE NEGATIVE (NEGATIVE); KETONES,URINE NEGATIVE (NEGATIVE); LEUKOCYTE ESTERASE,URINE LARGE (NEGATIVE); NITRITE,URINE NEGATIVE (NEGATIVE); PROTEIN,URINE 100 mg/dL (NEGATIVE); URINE SPECIFIC GRAVITY 1.012; UROBILINOGEN,URINE NEGATIVE mg/dL (<2.0)
[2019-07-29 11:26] LABS: ANION GAP 10 (5-19); BLOOD UREA NITROGEN 26 mg/dL (7-20); CALCIUM 8.2 mg/dL (8.4-10.2); CARBON DIOXIDE 28 mmol/L (22-30); CHLORIDE 100 mmol/L (98-107); GLUCOSE 171 mg/dL (75-110); PHOSPHORUS 3.8 mg/dL (2.5-4.5); POTASSIUM 3.5 mmol/L (3.6-5.0)
== END ==
LOC: OD 10:13
PROVIDERS: ATTEND Physician Assistant Medical
DX: I12.9 Hypertensive chronic kidney disease with stage 1 through stage 4 chronic kidney disease, or unspecified chronic kidney disease (principal); N18.4 Chronic kidney disease, stage 4 (severe); E11.22 Type 2 diabetes mellitus with diabetic chronic kidney disease; R60.9 Edema, unspecified; N25.0 Renal osteodystrophy; E87.5 Hyperkalemia
CPT/HCPCS: 36415; 80048; 81001; 83970; 84100; 85025

== ENCOUNTER → 2019-09-03 | Outpatient (CLI) | payer MEDICARE ==
[2019-09-03 11:05] LABS: ABSOLUTE BASOPHILS # (AUTO) 0.1 10^3/uL (0.0-0.2); ABSOLUTE EOSINOPHILS # (AUTO) 0.5 10^3/uL (0.0-0.6); ABSOLUTE LYMPHOCYTES (AUTO) 2.5 10^3/uL (0.5-4.7); ABSOLUTE MONOCYTES (AUTO) 0.8 10^3/uL (0.1-1.4); ABSOLUTE NEUT (AUTO) 4.2 10^3/uL (1.7-8.2); BASOPHILS % (AUTO) 1.3 % (0-2); EOSINOPHILS % (AUTO) 6.2 % (0-6); HEMATOCRIT 32.3 % (36.0-47.0); HEMOGLOBIN 10.3 g/dL (12.0-15.5); LYMPHOCYTES % (AUTO) 31.3 % (13-45); MEAN CORPUSCULAR HEMOGLOBIN 25.7 pg (27.0-33.4); MEAN CORPUSCULAR VOLUME 80 fl (80-97); MONOCYTES % (AUTO) 9.8 % (3-13); PLATELET COUNT 495 10^3/uL (150-450); RED BLOOD COUNT 4.02 10^6/uL (3.72-5.28); RED CELL DISTRIBUTION WIDTH 15.1 % (11.5-14.0); SEGMENTED NEUTROPHILS % (AUTO) 51.4 % (42-78); TOTAL CELLS COUNTED % (AUTO) 100 %; WHITE BLOOD COUNT 8.1 10^3/uL (4.0-10.5)
[2019-09-03 11:48] LABS: ALBUMIN 3.7 g/dL (3.5-5.0); ALKALINE PHOSPHATASE 135 U/L (38-126); ANION GAP 8 (5-19); ASPARTATE AMINO TRANSFERASE 17 U/L (14-36); BILIRUBIN,DIRECT 0.2 mg/dL (0.0-0.4); BILIRUBIN,TOTAL 0.4 mg/dL (0.2-1.3); BLOOD UREA NITROGEN 23 mg/dL (7-20); CALCIUM 8.9 mg/dL (8.4-10.2); CARBON DIOXIDE 28 mmol/L (22-30); CHLORIDE 100 mmol/L (98-107); CHOLESTEROL 177.14 mg/dL (0-200); GLUCOSE 137 mg/dL (75-110); POTASSIUM 5.7 mmol/L (3.6-5.0); TOTAL PROTEIN 8.1 g/dL (6.3-8.2); TRIGLYCERIDES 180 mg/dL (<150)
[2019-09-03 11:59] LABS: DIRECT LDL 104 mg/dL (<100)
== END ==
LOC: OD 09:49
PROVIDERS: ATTEND Physician Assistant
DX: E11.22 Type 2 diabetes mellitus with diabetic chronic kidney disease (principal); N18.4 Chronic kidney disease, stage 4 (severe); E78.2 Mixed hyperlipidemia
CPT/HCPCS: 36415; 80053; 80061; 83036; 84681; 85025

== ENCOUNTER → 2019-09-16 | Outpatient (CLI) | payer MEDICARE ==
[2019-09-16 13:38] LABS: ABSOLUTE BASOPHILS # (AUTO) 0.1 10^3/uL (0.0-0.2); ABSOLUTE EOSINOPHILS # (AUTO) 0.6 10^3/uL (0.0-0.6); ABSOLUTE LYMPHOCYTES (AUTO) 3.4 10^3/uL (0.5-4.7); ABSOLUTE MONOCYTES (AUTO) 0.7 10^3/uL (0.1-1.4); ABSOLUTE NEUT (AUTO) 3.2 10^3/uL (1.7-8.2); BASOPHILS % (AUTO) 1.3 % (0-2); EOSINOPHILS % (AUTO) 7.8 % (0-6); HEMATOCRIT 33.7 % (36.0-47.0); LYMPHOCYTES % (AUTO) 42.4 % (13-45); MEAN CORPUSCULAR HEMOGLOBIN 25.8 pg (27.0-33.4); MEAN CORPUSCULAR HGB CONC 32.6 g/dL (32.0-36.0); MEAN CORPUSCULAR VOLUME 79 fl (80-97); MONOCYTES % (AUTO) 8.4 % (3-13); PLATELET COUNT 462 10^3/uL (150-450); RED BLOOD COUNT 4.25 10^6/uL (3.72-5.28); RED CELL DISTRIBUTION WIDTH 15.2 % (11.5-14.0); SEGMENTED NEUTROPHILS % (AUTO) 40.1 % (42-78); TOTAL CELLS COUNTED % (AUTO) 100 %
[2019-09-16 14:08] LABS: APPEARANCE,URINE SLIGHTLY-CLOUDY; BILIRUBIN,URINE NEGATIVE (NEGATIVE); COLOR,URINE YELLOW; GLUCOSE, URINE NEGATIVE (NEGATIVE); KETONES,URINE NEGATIVE (NEGATIVE); LEUKOCYTE ESTERASE,URINE MODERATE (NEGATIVE); NITRITE,URINE POSITIVE (NEGATIVE); PROTEIN,URINE 100 mg/dL (NEGATIVE); UROBILINOGEN,URINE NEGATIVE mg/dL (<2.0)
[2019-09-16 15:05] LABS: UR PRO/CREAT RATIO RESULT 3.1 mg/mg (0.0-0.2); URINE CREATININE 57.3 mg/dL (15-278); URINE PROTEIN 177.3 mg/dL (<12)
[2019-09-16 15:23] LABS: BLOOD UREA NITROGEN 43 mg/dL (7-20); CALCIUM 9.3 mg/dL (8.4-10.2); CARBON DIOXIDE 28 mmol/L (22-30); CHLORIDE 100 mmol/L (98-107); GLUCOSE 161 mg/dL (75-110); POTASSIUM 5.5 mmol/L (3.6-5.0)
[2019-09-16 15:24] LABS: ANION GAP 10 (5-19); IRON(TIBC) 52.5 ug/dL (37-170); PHOSPHORUS 6.2 mg/dL (2.5-4.5)
== END ==
LOC: OD 11:23
PROVIDERS: ATTEND Physician Assistant Medical
DX: I12.9 Hypertensive chronic kidney disease with stage 1 through stage 4 chronic kidney disease, or unspecified chronic kidney disease (principal); N18.4 Chronic kidney disease, stage 4 (severe); E11.22 Type 2 diabetes mellitus with diabetic chronic kidney disease; R60.9 Edema, unspecified; E87.6 Hypokalemia; N25.0 Renal osteodystrophy; N39.0 Urinary tract infection, site not specified
CPT/HCPCS: 36415; 80048; 81001; 82570; 82728; 83540; 83550; 83970; 84100; 84156; 85025; 87086; 87088; 87186

== ENCOUNTER → 2019-11-05 | Outpatient (CLI) | payer MEDICARE ==
[2019-11-05 12:27] LABS: ABSOLUTE BASOPHILS # (AUTO) 0.1 10^3/uL (0.0-0.2); ABSOLUTE EOSINOPHILS # (AUTO) 0.5 10^3/uL (0.0-0.6); ABSOLUTE MONOCYTES (AUTO) 0.7 10^3/uL (0.1-1.4); ABSOLUTE NEUT (AUTO) 3.7 10^3/uL (1.7-8.2); BASOPHILS % (AUTO) 1.4 % (0-2); HEMATOCRIT 34.7 % (36.0-47.0); HEMOGLOBIN 11.4 g/dL (12.0-15.5); LYMPHOCYTES % (AUTO) 37.4 % (13-45); MEAN CORPUSCULAR HEMOGLOBIN 26.1 pg (27.0-33.4); MEAN CORPUSCULAR HGB CONC 32.8 g/dL (32.0-36.0); MEAN CORPUSCULAR VOLUME 80 fl (80-97); MONOCYTES % (AUTO) 8.6 % (3-13); PLATELET COUNT 361 10^3/uL (150-450); RED BLOOD COUNT 4.35 10^6/uL (3.72-5.28); RED CELL DISTRIBUTION WIDTH 16.1 % (11.5-14.0); SEGMENTED NEUTROPHILS % (AUTO) 46.6 % (42-78); TOTAL CELLS COUNTED % (AUTO) 100 %; WHITE BLOOD COUNT 7.9 10^3/uL (4.0-10.5)
[2019-11-05 12:47] LABS: ANION GAP 13 (5-19); BLOOD UREA NITROGEN 56 mg/dL (7-20); CALCIUM 9.2 mg/dL (8.4-10.2); CARBON DIOXIDE 21 mmol/L (22-30); CHLORIDE 109 mmol/L (98-107); GLUCOSE 200 mg/dL (75-110); IRON(TIBC) 53.8 ug/dL (37-170); PHOSPHORUS 5.7 mg/dL (2.5-4.5); POTASSIUM 4.3 mmol/L (3.6-5.0)
[2019-11-05 12:53] LABS: APPEARANCE,URINE CLOUDY; BILIRUBIN,URINE NEGATIVE (NEGATIVE); COLOR,URINE YELLOW; GLUCOSE, URINE 50 mg/dL (NEGATIVE); KETONES,URINE NEGATIVE (NEGATIVE); LEUKOCYTE ESTERASE,URINE MODERATE (NEGATIVE); NITRITE,URINE POSITIVE (NEGATIVE); PROTEIN,URINE 100 mg/dL (NEGATIVE); URINE SPECIFIC GRAVITY 1.013; UROBILINOGEN,URINE NEGATIVE mg/dL (<2.0)
[2019-11-05 13:17] LABS: UR PRO/CREAT RATIO RESULT 2.3 mg/mg (0.0-0.2); URINE PROTEIN 290.1 mg/dL (<12)
== END ==
LOC: OD 11:51
PROVIDERS: ATTEND Physician Assistant Medical
DX: I12.9 Hypertensive chronic kidney disease with stage 1 through stage 4 chronic kidney disease, or unspecified chronic kidney disease (principal); N18.4 Chronic kidney disease, stage 4 (severe); E11.22 Type 2 diabetes mellitus with diabetic chronic kidney disease; D63.1 Anemia in chronic kidney disease; R60.9 Edema, unspecified; N25.0 Renal osteodystrophy; N39.0 Urinary tract infection, site not specified
CPT/HCPCS: 36415; 80048; 81001; 82570; 82728; 83540; 83550; 83970; 84100; 84156; 85025; 87086; 87088

== ENCOUNTER → 2019-12-14 | Outpatient (CLI) | payer MEDICARE ==
[2019-12-14 15:52] LABS: ALBUMIN 4.1 g/dL (3.5-5.0); ANION GAP 15 (5-19); BLOOD UREA NITROGEN 92 mg/dL (7-20); CALCIUM 9.4 mg/dL (8.4-10.2); CARBON DIOXIDE 26 mmol/L (22-30); CHLORIDE 95 mmol/L (98-107); GLUCOSE 166 mg/dL (75-110); PHOSPHORUS 5.9 mg/dL (2.5-4.5)
== END ==
LOC: OD 14:01
PROVIDERS: ATTEND Physician Assistant Medical
DX: I12.9 Hypertensive chronic kidney disease with stage 1 through stage 4 chronic kidney disease, or unspecified chronic kidney disease (principal); N18.4 Chronic kidney disease, stage 4 (severe); E11.22 Type 2 diabetes mellitus with diabetic chronic kidney disease; D63.1 Anemia in chronic kidney disease; E87.5 Hyperkalemia; R60.9 Edema, unspecified
CPT/HCPCS: 36415; 80069

== ENCOUNTER → 2020-01-25 | Outpatient (CLI) | payer MEDICARE ==
[2020-01-25 13:41] LABS: HEMATOCRIT 30.4 % (36.0-47.0); HEMOGLOBIN 10.5 g/dL (12.0-15.5); MEAN CORPUSCULAR HEMOGLOBIN 27.9 pg (27.0-33.4); MEAN CORPUSCULAR HGB CONC 34.4 g/dL (32.0-36.0); MEAN CORPUSCULAR VOLUME 81 fl (80-97); PLATELET COUNT 466 10^3/uL (150-450); RED BLOOD COUNT 3.76 10^6/uL (3.72-5.28); WHITE BLOOD COUNT 12.1 10^3/uL (4.0-10.5)
[2020-01-25 14:15] LABS: ALBUMIN 3.8 g/dL (3.5-5.0); ANION GAP 14 (5-19); BLOOD UREA NITROGEN 60 mg/dL (7-20); CALCIUM 9.2 mg/dL (8.4-10.2); CARBON DIOXIDE 23 mmol/L (22-30); CHLORIDE 98 mmol/L (98-107); GLUCOSE 201 mg/dL (75-110); PHOSPHORUS 4.2 mg/dL (2.5-4.5); POTASSIUM 4.6 mmol/L (3.6-5.0)
[2020-01-25 14:17] LABS: ABSOLUTE LYMPHOCYTES# (MANUAL) 2.9 10^3/uL (0.5-4.7); ABSOLUTE MONOCYTES # (MANUAL) 1.6 10^3/uL (0.1-1.4); BASOPHILS % (MANUAL) 0 % (0-2); EOSINOPHILS % (MANUAL) 6 % (0-6); LYMPHOCYTES % (MANUAL) 24 % (13-45); MONOCYTES % (MANUAL) 13 % (3-13); SEGMENTED NEUTROPHILS % (MAN) 57 % (42-78); TOTAL CELLS COUNTED 100
[2020-01-25 14:18] LABS: ANISOCYTOSIS SLIGHT; PLATELET COMMENT INCREASED; TOXIC GRANULATION 1+
[2020-01-25 14:27] LABS: APPEARANCE,URINE CLOUDY; BILIRUBIN,URINE NEGATIVE (NEGATIVE); COLOR,URINE YELLOW; GLUCOSE, URINE 50 mg/dL (NEGATIVE); KETONES,URINE NEGATIVE (NEGATIVE); LEUKOCYTE ESTERASE,URINE LARGE (NEGATIVE); NITRITE,URINE NEGATIVE (NEGATIVE); PROTEIN,URINE 100 mg/dL (NEGATIVE); URINE SPECIFIC GRAVITY 1.009; UROBILINOGEN,URINE NEGATIVE mg/dL (<2.0)
[2020-01-25 14:43] LABS: UR PRO/CREAT RATIO RESULT 1.4 mg/mg (0.0-0.2); URINE CREATININE 109.5 mg/dL (15-278); URINE PROTEIN 157.7 mg/dL (<12)
== END ==
LOC: OD 13:14
PROVIDERS: ATTEND Physician Assistant Medical
DX: N17.9 Acute kidney failure, unspecified (principal); I12.9 Hypertensive chronic kidney disease with stage 1 through stage 4 chronic kidney disease, or unspecified chronic kidney disease; N18.4 Chronic kidney disease, stage 4 (severe); E11.22 Type 2 diabetes mellitus with diabetic chronic kidney disease; D64.9 Anemia, unspecified; N39.0 Urinary tract infection, site not specified; R60.9 Edema, unspecified
CPT/HCPCS: 36415; 80069; 81001; 82570; 83735; 83970; 84156; 85025; 87086; 87088